=== PATIENT | male | born 1975 | race Caucasian/White ===

== ENCOUNTER 2022-11-27 08:31 | Outpatient (AMB) | payer BC, SELFPAY ==
--- NOTE | 2022-11-27 08:35 | HO.SPINEOV ---
Intake Intake Visit Reasons: Herniated disc Intake Note: Mr. Toth is here today c/o low back pain. MRI done @ [facility]/brought disc. Clerical Stock Inspector Required: No Assessment & Plan Assessment & Plan (1) Lumbar disc herniation with radiculopathy: Code(s): M51.16 - Intervertebral disc disorders with radiculopathy, lumbar region Plan Dear colleague Thank you for referring Collin Toth to the office today with a chief complaint of back pain and right leg pain. HPI: This 47-year-old male is known with low back pain for years. More importantly, he has right leg pain it radiates from his buttock down to the posterior thigh into his calf. This pain was coming on and off for years but in the last year it is more constant and very painful to a point that it interferes with his daily activities. He also notices numbness under his left foot. He tried chiropractic therapy until few months ago, home exercises with stretching and anti-inflammatory drugs without resolution of his symptoms. At night he sleeps in a position to release the pain in his leg. He still works as a safety issue manager cancer. In his 20s he suffered a herniated disc with a similar pain radiating down his right leg, which eventually resolved. PMH: Diabetes the last A1c below 7 Social history: , manager cancer, nonsmoker Medications: Ozempic and Advil Allergies: No drug allergies Physical Exam: Pleasant male. Straight leg raise produces pain in his right hip. There is mild atrophy of the musculature was right leg compared to the left. Motor exam reveals weakness of the right iliopsoas and plantar flexors grade 4/5. Radiological Studies: MRI done at [facility] on 07/06/2022 shows L5-S1 degenerative disc disease with an eccentric disc herniation L5-S1 compressing the right S1 nerve root but also influencing the left S1 nerve. Impression/Plan: This patient is suffering from a right S1 radiculopathy caused by a disc herniation L5-S1. Conservative treatment failed. Therefore, I offered him a lumbar microdiskectomy L5-S1, right-sided approach. We discussed the procedure, complications and expected postoperative course. He wants to proceed and is tentatively scheduled for 01/16/2023. Would like to obtain a CT of the lumbar spine to rule out calcification of the disc herniation as the symptoms are going on for multiple years. Thank you for allowing me to participate in your patients care. total time spent was 50 minutes in counseling ,coordination of plan, personal review of imaging, surgical decision making and subsequent plan Isaiah Grace MD, PhD Spine Fellowship Trained Neurosurgeon Director, [facility] Orders: Orders CT lumbar spine wo IV con Today M51.16 - Intervertebral disc disorders with radiculopathy, lumbar region Coding Level of Care Code New Pt Level 4 (82351) Diagnoses Lumbar disc herniation with radiculopathy M51.16
== END 2022-11-27 09:05 | disposition home or self-care (01) ==
PROVIDERS: Visit Provider Neurological Surgery
DX: M51.16 Intervertebral disc disorders with radiculopathy, lumbar region (principal)
CPT/HCPCS: 99204

== ENCOUNTER → 2022-11-27 08:31 | Outpatient (BNVA) | payer BC, SELFPAY | PROVIDERS: Visit Provider Neurological Surgery ==

== ENCOUNTER 2022-12-12 07:27 | Outpatient (REF) | payer BC, SELFPAY | END 2022-12-12 07:28 | disposition home or self-care (01) | LOC: HO.CT 07:27 | PROVIDERS: Visit Provider Neurological Surgery | DX: M51.16 Intervertebral disc disorders with radiculopathy, lumbar region (principal) | CPT/HCPCS: 72131 ==

== ENCOUNTER 2022-12-30 | Outpatient (REF) | payer BC, SELFPAY ==
--- NOTE | 2022-12-30 | ECG_ITS ---
Test Reason : preop Blood Pressure : / mmHG Vent. Rate : 106 BPM Atrial Rate : 106 BPM P-R Int : 140 ms QRS Dur : 094 ms QT Int : 330 ms P-R-T Axes : 033 -14 017 degrees QTc Int : 438 ms Sinus tachycardia Low voltage QRS Borderline ECG No previous ECGs available Referred By: Coty Nelson Electronically Signed By:AVTAR CALHOUN MD
[2022-12-30 13:10] VITALS: BP 114/82; PULSE 109; RESP 16; O2SAT 97; BMI 31.1
--- NOTE | 2022-12-30 13:38 | HO.ANESPROP2 ---
HPI - Anesthesia Eval Consult details Narrative: Cx'd by surgeon d/t elevated A1C 47yo M for Right L4-5 MLD (MicroLumbar Discectomy), 01/21/23 No recent illness No CP/SOB with work/walking. Limited by back pain. DM. Ozempic. Does not check POC at home - A1C @ 10.[address] [facility]. Dr Grace notified High anesthesia tolerance r/t red hair Anesthesia Pre-Procedure Meds Is the patient on any of the following meds?: Semaglutide (Ozempic) (Rx on Saturdays. Planned last dose 01/11/23) If Yes to any meds - educate patient: Pt education - increased risk of aspiration and Pt education - possibility of cancelled proc at provider's discretion PMFSH Active Problems Active Problems: All Active Problems (Updated 12/30/22 @ 13:27 by Ivy Murguia, SILVER) Lumbar disc herniation with radiculopathy (Acute) Past Medical History Medical History (Updated 12/30/22 @ 13:27 by Ivy Murguia, SILVER) Mild heartburn Numbness Diabetes Family History Family history of problems with anesthesia: No Surgical History Surgical History (Updated 12/30/22 @ 13:03 by Ivy Mugruia, SILVER) H/O wisdom tooth extraction History of Problems with Anesthesia: No Social History Social History (Updated 12/30/22 @ 13:51 by Ivy Murguia, SILVER) Are you a primary social worker palliative care to a significant other at home: No Do you presently have visiting nurse or other home services: No Patient Tobacco Use Status: Former Tobacco user Quit Date: 04/2022 Tobacco use type: Cigarette Years Smoked: 20 Smoked in Last 30 Days: No Use of substances other than those prescribed or required for medical reasons: No Have you been hit, kicked, punched, or otherwise hurt by someone within the past year? If so, by whom?: No Are you DNR?: No Advance Directives: No Advance Directives Information Provided: Yes Advance Directives on File: No Recently lost weight without trying: No Nutrition Risks: No Nutritional Risk Poor oral hygiene: No Meds Allergies Allergy/AdvReac Type Severity Reaction Status Date / Time oxycodone [From Percocet] AdvReac Intermediate Nausea and Verified 12/30/22 13:09 Vomiting Home Medications Medication Instructions Recorded Confirmed Last Taken Type atorvastatin 40 mg tablet 40 mg PO DAILY 12/27/22 12/30/22 Unknown History semaglutide 1 mg/dose (4 mg/3 mL) mg subcut QWEEK 12/27/22 Unknown History subcutaneous pen injector (Ozempic) ibuprofen 200 mg tablet (Advil) 800 mg PO Q8H PRN Pain 12/30/22 12/30/22 Unknown History Exam Exam Date and Time: December 30, 2022 1338 Height,Weight and Vital Signs: Height 5 ft 5.5 in Weight 86.183 kg Last Vital Signs Pulse 109 H 12/30/22 13:10 Resp 16 12/30/22 13:10 BP 114/82 12/30/22 13:10 Pulse Ox 97 12/30/22 13:10 O2 Del Method Room Air 12/30/22 13:10 Pertinent Lab Results Pertinent Lab Results: Lab Results 12/30/22 Range/Units 14:07 WBC 7.4 (4.8-10.8) X10*3/uL RBC 5.60 (4.60-5.80) X10*6/uL Hgb 17.4 (14.0-18.0) g/dl Hct 49.7 (42.0-52.0) % MCV 88.8 (80.0-98.0) fL MCH 31.1 (27.0-33.0) pg MCHC 35.0 (31.0-36.0) g/dl RDW 12.1 (11.0-16.0) % Plt Count 217 (160-400) X10*3/uL MPV 9.9 (9.4-12.4) fL Absolute Nucleated RBC 0.000 (0.0-0.012) X10*3/uL Nucleated RBC % (auto) 0.0 (0.0-0.2) /100WBC Sodium 137 (135-145) mmol/L Potassium 4.2 (3.3-5.1) mmol/L Chloride 101 (96-108) mmol/L Carbon Dioxide 27 (22-29) mmol/L Anion Gap 13 (12-20) BUN 9 (9-16) mg/dL Creatinine 0.85 (0.5-1.4) mg/dL Estim Creat Clear Calc 106.1 Estimated GFR > 60 Random Glucose 265 H (60-115) mg/dL Estimat Average Glucose 246 mg/dL Hemoglobin A1c % 10.2 H (<6.0) % Calcium 10.0 (8.4-10.2) mg/dL Narrative Narrative: EKG 12/2022 Vent. Rate : 106 BPM Atrial Rate : 106 BPM P-R Int : 140 ms QRS Dur : 094 ms QT Int : 330 ms P-R-T Axes : 033 -14 017 degrees QTc Int : 438 ms Sinus tachycardia Low voltage QRS Borderline ECG No previous ECGs available Airway Mallampati Class: II (small mouth) TM Dist: >3cm Neck ROM: Full Loose/Missing/Broken Teeth: Yes (Molars pulled. Right crowned top molar) Heart: RRR Lungs: CTAB Assessment and Plan Assessment Anesthesia Assessment: Anesthesia Plan Discussed and PAT Visit Final Anesthetic Review Family History of Problems with Anesthesia: No History of Problems with Anesthesia: No
[2022-12-30 14:23] LABS: Hematocrit 49.7 % (42.0-52.0); Hemoglobin 17.4 g/dl (14.0-18.0); Mean Corpuscular Hemoglobin 31.1 pg (27.0-33.0); Mean Corpuscular Volume 88.8 fL (80.0-98.0); Mean Platelet Volume 9.9 fL (9.4-12.4); Platelet Count 217 X10*3/uL (160-400); Red Cell Distribution Width 12.1 % (11.0-16.0); White Blood Count 7.4 X10*3/uL (4.8-10.8)
[2022-12-30 14:44] LABS: Estimated Average Glucose 246 mg/dL; Hemoglobin A1c % 10.2 % (<6.0)
[2022-12-30 14:45] LABS: Anion Gap 13 (12-20); Blood Urea Nitrogen 9 mg/dL (9-16); Carbon Dioxide 27 mmol/L (22-29); Chloride 101 mmol/L (96-108); Creatinine Clr Calc Pharmacy 106.1; Estimated Glomerular Filt Rate > 60; Glucose Random 265 mg/dL (60-115); Potassium 4.2 mmol/L (3.3-5.1); Sodium 137 mmol/L (135-145)
== END 2022-12-30 00:01 | disposition home or self-care (01) ==
LOC: HO.PAT
PROVIDERS: Nurse Practitioner; Visit Provider Neurological Surgery
DX: Z01.818 Encounter for other preprocedural examination (principal); M51.16 Intervertebral disc disorders with radiculopathy, lumbar region
CPT/HCPCS: 36415; 80048; 83036; 85027; 93005

== ENCOUNTER 2023-01-16 07:01 | Outpatient (REF) | payer BC, SELFPAY ==
[2023-01-16 16:42] LABS: Estimated Average Glucose 237 mg/dL; Hemoglobin A1c % 9.9 % (<6.0)
== END 2023-01-16 07:02 | disposition home or self-care (01) ==
LOC: HO.LAB 07:01
PROVIDERS: Visit Provider Physician Assistant
DX: Z01.812 Encounter for preprocedural laboratory examination (principal); M51.16 Intervertebral disc disorders with radiculopathy, lumbar region
CPT/HCPCS: 36415; 83036

== ENCOUNTER 2024-04-09 08:37 | Outpatient (AMB) | payer OTHER, SELFPAY ==
--- OUTSIDE RECORDS SUMMARY | 2024-04-09 08:48 | XMS_ITS | Encounter Summary ---
Author Organization [facility] Address [address] [place] [address] Care Team Providers Care Auto Seat Cover Installer Name Role Phone Richard Upton MD Primary Care Provider [phone] Encounter Details Date Type Department Care Team (Late st Contact Info) Description 07/24/2023 Orders Only [facility] Interventional Radiology [address] [place] [address] Jesse Goodman MD [address] [place] [address] Social History Tobacco Use Types Packs/Day Years Used Date Smoking Tobacco: Former Cigarettes Smokeless Tobacco: Never Sex and Gender Information Value Date Recorded Sex Assigned at Male 02/05/2023 8:41 AM EST Legal Sex Male 7:31 AM EDT Gender Identity Male 02/11/2023 3:22 PM EST Sexual Orientation Straight 02/11/2023 3: 22 PM EST documented as of this encounter Plan of Treatment Upcoming Encounters Date Type Department Care Team (Late st Contact Info) Description 05/05/2024 9:00 AM EST Office Visit [facility] Primary Care [address] [place] [phone] Richard Upotn MD [address] [place] [address] 05/18/2024 11:00 AM EDT Follow-Up [facility] Gastroenterology Clinic [address] [place], [place] [phone] Ditcher: Annalee Napoles, [address] [place] [address] 07/09/2024 8:30 AM EDT Office Visit [facility] Diabetes [facility] [address] [place] [address] Ditcher: Prema Baumann, DEPUTY JAILER [address] [place] [address] documented as of this encounter Visit Diagnoses Not on filedocumented in this encounter Care Teams Auto Seat Cover Installer Relationship Specialty Start Date End Date Richard Upton MD [address] [place] [address] PCP - General Family Medicine 06/25/23 documented as of this encounter
--- OUTSIDE RECORDS SUMMARY | 2024-04-09 08:48 | XMS_ITS | Data Portability ---
Author Organization [facility] Address [address] [place] [address] Care Team Providers Care Assistant Auto Center Manager Name Role Phone JONI NULL Referring Provider [phone] Assessment No assessment recorded. Plan of Treatment Reminders Order Date Submit Date Provider Last Modified By Organization Details Last Modified Time Details Appointments None recorded. Lab None recorded. Referral None recorded. Procedures fluorescein eye stain (PROC) 2018 019 [email or web address] Not available 9 08:48:25 Surgeries None recorded. Imaging None recorded. Medication Orders erythromyci n 5 mg/gram (0.5 %) eye ointment 2018 019 [email or web address] Not available 9 16:14:53 Patient TargetsNo targets recorded. Patient InstructionsNo instructions recorded. Reason for Referral None Reported. Procedures Surgical History Date Name Laterality Status Provider Name and Address Organization Details Recorded Time 9 Fluorescein eye exam completed KEAGAN Dyer [facility] 06/07/2018 16:12:53 Imaging Results None recorded. Procedure Notes None recorded. Medical Equipment None Reported. Allergies No known drug allergies Medications Name Sig Start Date Stop Date Status Note LastModified by Organization Details LastModified Time atorvastatin 40 mg tablet active Not Available Not Available Not Available metformin 850 mg tablet active Not Available Not Available Not Available erythromycin 5 mg/gram (0.5 %) eye ointment APPLY 1 CM RIBBON INTO THE LOWER CONJUNCTIVA L SAC(S) IN THE AFFECTED EYE(S) BY OPHTHALMIC ROUTE 3 TIMES PER DAY 2018 active Not Available Not Available Not Avai lable Vitals Date Recorded Heart rate Provider Name an d Address Organization Details Last Updated DateTime 06/07/2018 110 /min Denise Vic [facility] 06/07/2018 10:26:19 Date Recorded Oxygen saturation Oxygen saturation in Arterial blood by Pulse oximetry Provider Name and Address Organization Details Last Updated DateTime 06/07/2018 97 % 97 % Denise Ho [facility] 06/07/2018 10:26:22 Date Recorded Body temperature Provider Name a nd Address Organization Details Last Updated DateTime 06/07/2018 98.7 [degF] Denise Ho [facility] 06/07/2018 10:27:01 Date Recorded Systolic blood pressure Diastolic blood pressure Provider Name and Address Organization Details Last Updated DateTime 06/07/2018 120 mm[Hg] 80 mm[Hg] Denise Ho [facility] 06/07/2018 10:28:02 Social History None recorded. Functional Status None recorded. Mental Status None recorded. Family History Nothing Reported. Medical History No medical history recorded. Past Encounters Encounter ID Performer Location Encounter Start Date Encounter Closed Date Diagnosis/Indication Diagnosis SNOMED-CT Code Diagnosis ICD10 Code Diagnosis Note [id number] Madisyn Diaz MD [facility] [address] [place] [address] 06/07/2018 09:58:18 06/07/2018 10:51:49 Foreign body in eye [id number] T15.90XA 42/M with R-side FB sensation after working under car without glasses, onset during a shower. Suspects material washed from eyebrow into eye. Pt refused vision screen after both [place] and provider requested. No FB visualized . Fluorescei n stain negative. Flushed with 100cc saline under topical anesthetic . Unable to assess improvemen t d/t residual anesthesia . Advise irritation may persist for a few hrs regardless of outcome, to treat with abx as below d/t significan t manipulati on of eye. F/u with [facility] if not improved tomorrow AM to assess retained FB. Pt states understand ing and agrees to do so. Health Concerns Section Related Observation LastModified by Organization Detai ls LastModified Time None Recorded Concern Status LastModified by Organization Details LastModified Time None Recorded Advance Directives Directive None Recorded Payers Encounter Date Sequence Insurance Name Policy Number Policy Grubbs Covered Member ID Grubbs Member ID Guarantor Name 06/07/2018 1 ROSANNA-JOSEPH: ROSANNA (PPO) [id number] Collin Toth [id number] Collin Toth Notes Date Note Type Note Provider Name and Address Organization Details Recorded Time 06/07/2018 text/html 42/M presents fo r foreign body in eye. Reports: - working under car yesterday with no safety glasses, felt an odd sensation but no pain - this AM while showering felt sudden pain in outside edge of R lower eyelid - tried to flush without improvement - wears glasses, no contacts - pt refuses vision screen - PCP Dr. Joni Null ROS: FB sensation, no blurry vision, no discharge, no swelling, no fever Madisyn Diaz MD [address] [place] [address], [id number], [facility] 06/07/2018 18:47:52
--- OUTSIDE RECORDS SUMMARY | 2024-04-09 08:48 | XMS_ITS | Encounter Summary ---
Author Organization [facility] Address [address] [place] [address] Care Team Providers Care Aoc Director Intelligence Officer Name Role Phone Richard Upton MD Primary Care Provider [phone] Encounter Details Date Type Department Care Team (Late st Contact Info) Description 07/15/2023 myChart Message [facility] Financial Clearance Department [address] [place] [address] Mychart, Generic Provider [address] [place], [place] [phone] Medication Authorization Approval Social History Tobacco Use Types Packs/Day Years [...] Description 05/05/2024 9:00 AM EST Office Visit [facility] Primary Care [address] [place] [address] Richard Upton MD [address] [place] [address] 05/18/2024 11:00 AM EDT Follow-Up [facility] Gastroenterology Clinic [address] [place] [address] Panel Monitor: Annalee Napoles, DO [address] [place] [address] 07/09/2024 8:30 AM EDT Office Visit [facility] Diabetes Clinic [address] [place] [address] Panel Monitor: Prema Baumann, FONDANT COOKER [address] [place] [address] documented as of this encounter Visit Diagnoses Not on filedocumented in this encounter Care Teams Aoc Director Intelligence Officer Relationship Specialty Start Date End Date Richard Upton MD [address] [place] [address] PCP - General Family Medicine 06/25/23 documented as of this encounter
--- OUTSIDE RECORDS SUMMARY | 2024-04-09 08:48 | XMS_ITS | Clinical Summary ---
Author Organization [facility] Address [address] [place] [address] Care Team Providers Care Credit Support Counselor Name Role Phone Joni Null MD Primary Care Provider Allergies No known active allergies Social History Tobacco Use Types Packs/Day Years Used Date Smoking Tobacco: Never Assessed Sex and Gender Information Value Date Recorded Sex Assigned at Not on file Legal Sex Male 9:30 PM EDT Gender Identity Not on file Sexual Orientation Not on file Last Filed Vital Signs Vital Sign Reading Time Taken Comments Blood Pressure 155/80 09/13/2009 10:05 AM EDT Pulse 98 09/13/2009 10:05 AM EDT Temperature - - Respiratory Rate - - Oxygen Saturation - - Inhaled Oxygen Concentration - - Weight - - Height - - Body Mass Index - - Plan of Treatment Health Maintenance Due Date Last Done Comments Hepatitis C Screening 1973 DTaP/Tdap/Td (1 - Tdap) 09/01/1991 Hep B (1 of 3 - 19+ 3-dose series) 1992 Pneumococcal 50+ years (1 of 1 - PCV) 09/01/2023 Zoster (Shingrix) (1 of 2) 09/01/2023 COVID-19 Vaccine ( - 2023-2 5 season) 2023 Influenza (#1) 2023 HPV Vaccine Aged Out No longer eligi ble based on patient's age to complete this topic Hep A Aged Out No longer eligi ble based on patient's age to complete this topic Hib Aged Out No longer eligi ble based on patient's age to complete this topic Meningococcal ACWY Aged Out No longer eligible based on patient's age to complete this topic Insurance BCBS FEE FOR SERVICE HMO Care Teams Credit Support Counselor Relationship Specialty Start Date End Date Joni Null MD [address] [place] [address] PCP - General Family Medicine 07/15/22
--- OUTSIDE RECORDS SUMMARY | 2024-04-09 08:48 | XMS_ITS | Encounter Summary ---
Author Organization [facility] Address [address] [place] [id number] Care Team Providers Care City Assessor Name Role Phone Richard Upton MD Primary Care Provider [phone] Encounter Details Date Type Department Care Team (Late st Contact Info) Description 04/05/2024 Refill [facility] Diabetes Clinic [address] [place] [address] Senior Architect: Prema Baumann, TACKING STITCH REMOVER [address] [place], [place] [phone] Type 2 diabetes mellitus with hyperglycemia, with long-term current use of insulin (HCC) (Primary Dx) Social History Tobacco Use Types Packs/Day Years Used Date Smoking Tobacco: Former Cigarettes 0.5 20 2 - 2020 Smokeless Tobacco: Never Alcohol Use Standard Drinks/Week Comments Not Currently 0 (1 standard drink = 0.6 oz pur e alcohol) [facility] Utilities Answer Date Recorded In the past 12 months has [employer], gas, oil, or water [employer] threatened to shut off services in your home? No 07/29/2023 Hunger Vital Sign Answer Date Recorded Within the past 12 months, y ou worried that your food would run out before you got the money to buy more. Never true 07/29/19 24 Within the past 12 months, t he food you bought just didn't last and you didn't have money to get more. Never true 07/29/2023 Transportation Answer Date Recorded In the past 12 months, has l ack of reliable transportation kept you from medical appointments, meetings, work or from getting things needed for daily living? No 07/29/2023 Housing Answer Date Recorded Housing Risk Low 2 07/29/2023 Housing Risk Medium Not on file 07/29/2023 Housing Risk High Not on file 07/29/2023 What is your living situation today? [facility] 07/29/2023 Sex and Gender Information Value Date Recorded Sex Assigned at Male 02/05/2023 8:41 AM EST Legal Sex Male 7:31 AM EDT Gender Identity Male 02/11/2023 3:22 PM EST Sexual Orientation Straight 02/11/2023 3: 22 PM EST documented as of this encounter Miscellaneous Notes * Telephone Encounter - Seda Mcdaniel RN, CDE - 04/05/2024 9:26 AM EST He inadvertently cancelled his Toujeo script and needs a refill MIHIR as he has run out of it. Currently on 60 units but still adjusting (up to 80 units) Please check to see where he wants it sent documented in this encounter Plan of Treatment Upcoming Encounters Date Type Department Care Team (Late st Contact Info) Description 05/05/2024 9:00 AM EST Office Visit [facility] Primary Care [address] [place] [address] Richard Upton MD [address] [place] [address] 05/18/2024 11:00 AM EDT Follow-Up [facility] Gastroenterology Clinic [address] [place] [address] Senior Architect: Annalee Napoles DO [address] [place] [address] 07/09/2024 8:30 AM EDT Office Visit [facility] [address] [place] [address] Senior Architect: Prema Baumann, TACKING STITCH REMOVER [address] [place] [address] documented as of this encounter Visit Diagnoses Diagnosis Type 2 diabetes mellitus with hyperglycemia, with long-term current use of insulin (HCC)- Primary documented in this encounter Care Teams City Assessor Relationship Specialty Start Date End Date Richard Upton MD [address] [place] [address] PCP - General Family Medicine 06/25/23 documented as of this encounter
--- OUTSIDE RECORDS SUMMARY | 2024-04-09 08:49 | XMS_ITS | Encounter Summary ---
Author Organization [facility] Address [address] [place] [address] Care Team Providers Care Forging Operator Name Role Phone Richard Upton MD Primary Care Provider [phone] Reason for Visit * Reason Onset Date Comments Med Refill 03/08/2024 Encounter Details Date Type Department Care Team (Late st Contact Info) Description 03/08/2024 Telephone [facility] Diabetes Clinic [address] [place], [place] [phone] Seamless Tube Roller: Prema Baumann, CATH LABORATORY TECHNICIAN [address] [place] [address] Med Refill Social History Tobacco Use Types Packs/Day Years Used Date Smoking Tobacco: Former Cigarettes 0.5 2 - 2020 Smokeless Tobacco: Never Alcohol Use Standard Drinks/Week Comments Not Currently 0 (1 standard drink = 0.6 oz pur e alcohol) [facility] Utilities Answer Date Recorded In the past 12 months has [employer], gas, oil, or water [employer] threatened to shut off services in your [...] encounter Miscellaneous Notes * Telephone Encounter - Darya Sabillon - 03/16/2024 10:27 AM EST Lantus or Toujeo are covered alternatives * Telephone Encounter - Darya Sabillon - 03/08/2024 10:23 AM EST Tresiba is not being covered by insurance, Please send in an alternative or keep him on the Toujeo documented in this encounter Plan of Treatment Upcoming Encounters Date Type Department Care Team (Late st Contact Info) Description 05/05/2024 9:00 AM EST Office Visit [facility] Primary Care [address] [place] [phone] Richard Upton MD [address] [place] [address] 05/18/2024 11:00 AM EDT Follow-Up [facility] Gastroenterology Clinic [address] [place] [address] Seamless Tube Roller: Annalee Napoles DO [address] [place] [address] 07/09/2024 8:30 AM EDT Office Visit [facility] Diabetes Clinic [address] [place] [address] Seamless Tube Roller: Prema Baumann, CATH LABORATORY TECHNICIAN [address] [place], [place] [phone] documented as of this encounter Visit Diagnoses Not on filedocumented in this encounter Care Teams Forging Operator Relationship Specialty Start Date End Date Richard Upton MD [address] [place] [address] PCP - General Family Medicine 06/25/23 documented as of this encounter
--- OUTSIDE RECORDS SUMMARY | 2024-04-09 08:49 | XMS_ITS | Clinical Summary ---
Author Organization [facility] Address [address] [place] [address] Care Team Providers Care Imaging Specialist Name Role Phone Richard Upton MD Primary Care Provider + [phone] Allergies Active Allergy Reactions Criticality Noted Date Comments Empagliflozin Pancreatitis High 05/27/2023 Metformin Nausea,Vomiting High 02/11/2023 Semaglutide Pancreatitis High 05/27/2023 Medications OneTouch Verio test strips Use to test three times daily with meals and nightly. 100 strip 11 06/18/2023 3:38 PM EDT 06/18/19 24 Active OneTouch Delica Plus Lancet lancet 33 gauge Use to test three times daily with meals and nightly. 100 each 11 06/18/2023 3:38 PM EDT 06/18/19 24 Active OneTouch Verio Flex Start meter Use to test blood sugars as directed. 1 each 06/18/19 24 Active alcohol swabs (Alcohol Pads) pads, medicated Use up to 8 times daily with meter checks 200 each 11 06/18/2023 3:38 PM EDT 06/18/19 24 Active blood-glucose meter (OneTouch Verio Reflect Meter) misc 1 each 3 times a day. 1 each 06/18/2023 3:38 PM EDT 06/18/19 24 Active Freestyle lancets 28 gauge Test daily before all meals/snacks and once before bedtime. 3 each 06/23/19 24 Active atorvastatin (LIPITOR) 40 mg tablet Take 1 tablet (40 mg total) by mouth once a day. 90 tablet 3 06/23/19 24 Active omeprazole (PriLOSEC) 20 mg capsule Take 1 capsule (20 mg total) by mouth once a day. 30 capsule 5 11/17/19 24 025 Active BD Ultra-Fine Nusrat Pen Needle 4 mm x 32 gIndications:T ype 2 diabetes mellitus without complication, with long-term current use of insulin ([facility] ([facility]) Use 5 times daily. 150 each 5 11/24/19 24 Active FreeStyle Shon 3 Plus Sensor device Change sensor every 15 days. 6 each 3 11/25/19 24 Active insulin lispro 100 unit/mL insulin penIndications :Type 2 diabetes mellitus without complication, with long-term current use of insulin ([facility] ([facility]) Inject 10-26 Units under the skin 3 times a day before meals. And 2- 6 units for nighttime snack. 30 mL 3 03/08/20 24 025 Active insulin glargine U-300 conc (Toujeo SoloStar U-300 Insulin) 300 unit/mL (1.5 mL) insulin penIndications :Type 2 diabetes mellitus with hyperglycemia, with long-term current use of insulin ([facility]) Inject 60 Units under the skin in the morning. Increase by 2 units every 3 days until fasting am is <130. MDD80 20 mL 11 04/05/19 25 Active Tresiba FlexTouch U-200 200 unit/mL (3 mL) insulin penIndications :Type 2 diabetes mellitus without complication, with long-term current use of insulin ([facility] ([facility]) Inject 48 Units under the skin daily with dinner. Increase by 2 units every 3-4 days until fasting am glucose <130. MDD 60 15 mL 11 03/08/20 24 025 Discontinued Active Problems Problem Noted Date Diagnosed Date Sinus tachycardia 05/25/2023 Assessment & Plan (06/17/2023 8:15 AM EDT): Vladimir had persistent sinus tachycardia since admission as high as 140's. Cause is not clear. Initally thought to be related to volume status in setting of sepsis like picture and then aggressive fluid resuscitation. EKG was performed revealing sinus tachycardia with no significant change from prior EKG. TTE showed LVEF of 60% with some concentric remodeling. Duplex negative for DVT. Sepsis work-up negative. Cards was curbsided and recommended against Beta blockade. ID was consulted and recommended empiric Zosyn, which was discontinued on 06/14. Plan: -Tele as tolerated by patient Assessment & Plan (06/16/2023 9:48 AM EDT): Vladimir has had persistent sinus tachycardia since admission as high as 140's, now sustaining 120-130's. Cause is not clear. Initally thought to be related to volume status in setting of sepsis like picture and then aggressive fluid resuscitation. Patient received Lasix 40 mg IV on 05/29 which did not resolve tachycardia. Patient continues to be tachycardic. EKG was preformed revealing sinus tachycardia with no significant change from prior EKG. TTE showed LVEF of 60% with some concentric remodeling. Duplex negative for DVT. Plan: -Tele as tolerated by patient - 06/01 will repeat sepsis workup given persistence of tachycardia and continued elevated WBC which had return to normal level previously. Will do Bcx, Ucx, CXR, repeat the CTAP, start maintenance fluids and put back on Vanc/Zosyn - CXR with effusions and so got CT Chest which showed b/l effusions and fluid filled esophagus. - D-dimer on 06/02 was elevated. Will consult with radiology about imaging given recent large contrast load. - 06/03 CTPE negative, curbside cards who felt continue to treat underlying issue and no beta blockade. - ID consulted and recommended Zosyn, which was discontinued on 06/14 - 06/05 6 beat run VT on tele. Assessment & Plan (06/09/2023 8:26 AM EDT): Vladimir has had persistent sinus tachycardia since admission as high as 140's, now sustaining 120-130's. Cause is not clear. Initally thought to be related to volume status in setting of sepsis like picture and then aggressive fluid resuscitation. Patient received Lasix 40 mg IV on 05/29 which did not resolve tachycardia. Patient continues to be tachycardic. EKG was preformed revealing sinus tachycardia with no significant change from prior EKG. TTE and lower extremity duplex pending to rule out structural heart cause or DVT. Plan: -Tele as tolerated by patient -TTE pending - Lower extremity duplex negative - 06/01 will repeat sepsis workup given persistence of tachycardia and continued elevated WBC which had return to normal level previously. Will do Bcx, Ucx, CXR, repeat the CTAP, start maintenance fluids and put back on Vanc/Zosyn - CXR with effusions and so got CT Chest which showed b/l effusions and fluid filled esophagus. - D-dimer on 06/02 was elevated. Will consult with radiology about imaging given recent large contrast load. - 06/03 CTPE negative, curbside cards who felt continue to treat underlying issue and no beta blockade. - ID consulted and recommended continuing Zosyn - 06/05 6 beat run VT on tele. Assessment & Plan (06/06/2023 8:06 AM EDT): Vladimir has had persistent sinus tachycardia since admission as high as 140's, now sustaining 120-130's. Cause is not clear. Initally thought to be related to volume status in setting of sepsis like picture and then aggressive fluid resuscitation. Patient received Lasix 40 mg IV on 05/29 which did not resolve tachycardia. Patient continues to be tachycardic. EKG was preformed revealing sinus tachycardia with no significant change from prior EKG. TTE and lower extremity duplex pending to rule out structural heart cause or DVT. Plan: -Tele as tolerated by patient -TTE pending - Lower extremity duplex negative - 06/01 will repeat sepsis workup given persistence of tachycardia and continued elevated WBC which had return to normal level previously. Will do Bcx, Ucx, CXR, repeat the CTAP, start maintenance fluids and put back on Vanc/Zosyn - CXR with effusions and so got CT Chest which showed b/l effusions and fluid filled esophagus. - D-dimer on 06/02 was elevated. Will consult with radiology about imaging given recent large contrast load. - 06/03 CTPE negative, curbside cards who felt continue to treat underlying issue and no beta blockade. - ID consulted and recommended continuing Zosyn - 06/05 6 beat run VT on tele. Assessment & Plan (06/01/2023 6:26 PM EDT): Vladimir has had persistent sinus tachycardia since admission as high as 140's, now sustaining 120-130's. Cause is not clear. Initally thought to be related to volume status in setting of sepsis like picture and then aggressive fluid resuscitation. Patient received Lasix 40 mg IV on 05/29 which did not resolve tachycardia. Patient continues to be tachycardic. EKG was preformed revealing sinus tachycardia with no significant change from prior EKG. TTE and lower extremity duplex pending to rule out structural heart cause or DVT. Plan: -Tele as tolerated by patient -TTE pending - Lower extremity duplex pending -Consider starting beta jayro if sustained tachycardia Assessment & Plan (05/31/2023 12:01 PM EDT): He has had persistent sinus tachycardia since admission as high as 140's and now in 110's on transfer from ICU. Cause is not clear but likely related to volume status in setting of sepsis like picture and then aggressive fluid resuscitation. He got Lasix 40 mg IV on 05/29 to see if this helps. Plan: -Tele -Assess volume status and consider additional diuresis [ ] TTE, EKG [ ] Lower extremity duplex Increased anion gap metabolic acidosis Abdominal pain 05/25/2023 Necrotizing pancreatitis 05/24/2023 Assessment & Plan (06/17/2023 8:12 AM EDT): 47 y/o old male with PMH diabetes, hyperlipidemia who presented to the emergency room with severe abdominal pain of sudden onset. He called EMS. Notably he has been having intermittent episodes of vomiting for the past few months. His stated that a few days prior he had multiple episodes of violent vomiting. In the ED found to be septic and with acute pancreatitis on CT and with a lipase of >600. He has also had significant nausea and vomiting. Of note He had been on Ozempic for over a year and was recently started on Jardiance within the last month. CTAP showed significant acute pancreatitis with signs of possible early necrotizing pancreatitis. Pancreatitis was likely secondary to Ozempic and Jardiance. He was admitted to the ICU where he was maintained NPO with ADAT to clears at time of transfer. At time of transfer he was off of insulin gtt and OOB to chair with pain well managed with infrequent use of dilaudid WORK MANAGER. With resuscitation he has reversed hemoconcentration, BUN and creatinine improved. GI was following in ICU and has signed off. Autoimmune rule out IgG4, CMV, HSV, HBV, VZV PCRs all negative. Patient received interval CT to assess necrotizing pancreatitis. He was started on TPN in the hospital and was eventually weaned off. Plan: -Advance diet as tolerated to full diet -Continue zofran q8h prn with compazine as needed for breakthrough n/v -Bowel regimen: Miralax PRN, Senna PRN, and Colace standing [ ] Patient will need CTAP in 6 weeks to follow-up on the necrosis/fluid collection. PCP can refer him to GI if CTAP shows walled off necrosis/pseudocyst. Assessment & Plan (06/16/2023 9:44 AM EDT): 47 y/o old male with PMH diabetes, hyperlipidemia who presented to the emergency room with severe abdominal pain of sudden onset. He called EMS. Notably he has been having intermittent episodes of vomiting for the past few months. His stated that a few days prior he had multiple episodes of violent vomiting. The next day he woke up normal. This has happened every few weeks. On the day of presentation it was the first day that it was as severe and sustained. In the ED found to be septic and with acute pancreatitis on CT and with a lipase of >600. He has also had significant nausea and vomiting. Of note He had been on Ozempic for over a year and was recently started on Jardiance within the last month. CTAP showed significant acute pancreatitis with signs of possible early necrotizing pancreatitis. Likley causes include the Ozempic and Jardiance vs idiopathic cause. does note a recent viral illness that went through the household though unlikely to viral given resolution of viral illness. Pancreatitis was likely secondary to Ozempic and Jardiance. He was admitted to the ICU where he was maintained NPO with ADAT to clears at time of transfer. At time of transfer he was off of insulin gtt and OOB to chair with pain well managed with infrequent use of dilaudid WORK MANAGER. With resuscitation he has reversed hemoconcentration, BUN and creatinine improved. Still remains with low phos and calcium. GI was following in ICU and has signed off. Plan: -Advance diet as tolerated, to full diet -Discontinue Dilaudid 0.2 every 4 as needed -Autoimmune rule out IgG4, CMV, HSV, HBV, VZV PCRs, all negative. -Continue zofran q8h prn with compazine as needed for breakthrough n/v -Bowel regimen: Miralax PRN, Senna PRN, and Colace standing -Permanently D/C Ozempic, Jardiance and metformin - 06/02: CTAP showed worsening of necrosis to 1/3 of pancreas as well as increased ascites and anasarca and on CT chest we saw fluid filled esophagus. GI recommended continued fluids, slow advancement of diet, low fat diet, and that as long as no dysphagia does not need NGT for esophageal finding. - 06/03: TPN started given poor progression of po intake and low albumin/protein with 3rd spacing. - 06/07 Pt continued on TPN, abdominal ultrasound ordered to evaluate for ascites/ drainable pocket - 06/07 Pt diuresed for third spacing, AM 40 mg lasix IV - 06/07 Pt diuresed for third spacing, AM 40 mg lasix IV - US for ascites 06/08 Small pockets of ascites in the upper abdomen, right more than left - Repeat CTAP on 06/10 with worsening necrosis, not walled off collection to drain, GI reengaged who recommend one week follow up CT on 06/17. - Surgery consulted and said no surgical intervention [ ] Patient will need CTAP in 6 weeks to follow-up on the necrosis/fluid collection. PCP can refer him to GI if CTAP shows walled off necrosis/pseudocyst. [ ] consider D/C TPN based on tolerating diet advancement Assessment & Plan (06/14/2023 10:27 AM EDT): 47 y/o old male with PMH diabetes, hyperlipidemia who presented to the emergency room with severe abdominal pain of sudden onset. He called EMS. Notably he has been having intermittent episodes of vomiting for the past few months. His stated that a few days prior he had multiple episodes of violent vomiting. The next day he woke up normal. This has happened every few weeks. On the day of presentation it was the first day that it was as severe and sustained. In the ED found to be septic and with acute pancreatitis on CT and with a lipase of >600. He has also had significant nausea and vomiting. Of note He had been on Ozempic for over a year and was recently started on Jardiance within the last month. CTAP showed significant acute pancreatitis with signs of possible early necrotizing pancreatitis. Likley causes include the Ozempic and Jardiance vs idiopathic cause. does note a recent viral illness that went through the household though unlikely to viral given resolution of viral illness. Pancreatitis was likely secondary to Ozempic and Jardiance. He was admitted to the ICU where he was maintained NPO with ADAT to clears at time of transfer. At time of transfer he was off of insulin gtt and OOB to chair with pain well managed with infrequent use of dilaudid WORK MANAGER. With resuscitation he has reversed hemoconcentration, BUN and creatinine improved. Still remains with low phos and calcium. GI was following in ICU and has signed off. Plan: -Advance diet as tolerated, to full diet -Discontinue Dilaudid 0.2 every 4 as needed -Autoimmune rule out IgG4, CMV, HSV, HBV, VZV PCRs, all negative. -Continue zofran q8h prn with compazine as needed for breakthrough n/v -Bowel regimen: Miralax PRN, Senna PRN, and Colace standing -Permanently D/C Ozempic, Jardiance and metformin - 06/02: CTAP showed worsening of necrosis to 1/3 of pancreas as well as increased ascites and anasarca and on CT chest we saw fluid filled esophagus. GI recommended continued fluids, slow advancement of diet, low fat diet, and that as long as no dysphagia does not need NGT for esophageal finding. - 06/03: TPN started given poor progression of po intake and low albumin/protein with 3rd spacing. - 06/07 Pt continued on TPN, abdominal ultrasound ordered to evaluate for ascites/ drainable pocket - 06/07 Pt diuresed for third spacing, AM 40 mg lasix IV - US for ascites 06/08 awaiting read but appears with mild ascites - Repeat CTAP on 06/10 with worsening necrosis, not walled off collection to drain, GI reengaged who recommend one week follow up CT. - Surgery consulted and said no surgical intervention [ ] Patient will need CTAP in 6 weeks to follow-up on the necrosis/fluid collection. PCP can refer him to GI if CTAP shows walled off necrosis/pseudocyst. Assessment & Plan (06/07/2023 7:39 AM EDT): 47 y.o.-old male with PMH diabetes, hyperlipidemia who presented to the emergency room with severe abdominal pain of sudden onset . It was severe. He is unable to describe it due to his discomfort. He called EMS. Notably he has been having intermittent episodes of vomiting for the past few months. His stated that a few days prior he had multiple episodes of violent vomiting. The next day he woke up normal. This has happened every few weeks. On the day of presentation it was the first day that it was as severe and sustained. In the ED found to be septic and with acute pancreatitis on CT and with a lipase of >600. He has also had significant nausea and vomiting. Of note He had been on Ozempic for over a year and was recently started on Jardiance within the last month. CTAP shows significant acute pancreatitis with signs of possible early necrotizing pancreatitis. Likley causes include the Ozempic and Jardiance vs idiopathic cause. does note a recent viral illness that went through the household though unlikely to viral given resolution of viral illness. Pancreatitis is likely secondary to Ozempic and Jardiance. He was admitted to the ICU where he was maintained NPO with ADAT to clears at time of transfer. At time of transfer he is off of insulin gtt and OOB to chair with pain well managed with infrequent use of dilaudid WORK MANAGER. With resuscitation he has reversed hemoconcentration, BUN and creatinine improved. Still remains with low phos and calcium. GI was following in ICU and has signed off. Plan: -Advance diet as tolerated, currently on clears -Dilaudid 0.2 every 4 as needed -Autoimmune rule out IgG4, CMV, HSV, HBV, VZV PCRs, all negative. -Continue zofran q8h prn with compazine as needed for breakthrough n/v -Bowel regimen: Miralax PRN, Senna PRN, and Colace standing -Permanently D/C Ozempic, Jardiance and metformin - 06/01: still with sinus tach and difficulty advancing diet so will repeat CTAP to look for interval change in necrosis etc... - 06/02 CTAP done showing worsening of necrosis to 1/3 of pancrease as well as increased ascites and anasarca and on CT chest we saw fluid filled esophagus. Spoke with GI who recommends continued fluids, slow advancement of diet, low fat diet, and that as long as no dysphagia does not need NGT for esophageal finding. - TPN started on 3/27 given poor progression of po intake and low albumin/protein with 3rd spacing. [ ] Patient will need CTAP in 6 weeks to follow-up on the necrosis/fluid collection. PCP can refer him to GI if CTAP shows walled off necrosis/pseudocyst. Assessment & Plan (06/01/2023 6:44 PM EDT): 47 y.o.-old male with PMH diabetes, hyperlipidemia who presented to the emergency room with severe abdominal pain of sudden onset . It was severe. He is unable to describe it due to his discomfort. He called EMS. Notably he has been having intermittent episodes of vomiting for the past few months. His stated that a few days prior he had multiple episodes of violent vomiting. The next day he woke up normal. This has happened every few weeks. On the day of presentation it was the first day that it was as severe and sustained. In the ED found to be septic and with acute pancreatitis on CT and with a lipase of >600. He has also had significant nausea and vomiting. Of note He had been on Ozempic for over a year and was recently started on Jardiance within the last month. CTAP shows significant acute pancreatitis with signs of possible early necrotizing pancreatitis. Likley causes include the Ozempic and Jardiance vs idiopathic cause. does note a recent viral illness that went through the household though unlikely to viral given resolution of viral illness. Pancreatitis is likely secondary to Ozempic and Jardiance. He was admitted to the ICU where he was maintained NPO with ADAT to clears at time of transfer. At time of transfer he is off of insulin gtt and OOB to chair with pain well managed with infrequent use of dilaudid WORK MANAGER. With resuscitation he has reversed hemoconcentration, BUN and creatinine improved. Still remains with low phos and calcium. GI was following in ICU and has signed off. Plan: -Advance diet as tolerated, failed full liquid advancement on 09/29 -Dilaudid 0.2 q2 PRN and tylenol q6 PRN for pain control -Autoimmune rule out IgG4, CMV, HSV, HBV, VZV PCRs, all negative. -Continue zofran q8h prn with compazine as needed for breakthrough n/v -Bowel regimen: Miralax PRN, Senna PRN, and Colace standing -Permanently D/C Ozempic, Jardiance and metformin [ ] Am labs: lipase, amylase, CMP and ALT [ ] Patient will need CTAP in 6 weeks to follow-up on the necrosis/fluid collection. PCP can refer him to GI if CTAP shows walled off necrosis/pseudocyst. Assessment & Plan (05/31/2023 11:57 AM EDT): 47 y.o.-old male with PMH diabetes, hyperlipidemia who presented to the emergency room with severe abdominal pain of sudden onset . It was severe. He is unable to describe it due to his discomfort. He called EMS. Notably he has been having intermittent episodes of vomiting for the past few months. His stated that a few days prior he had multiple episodes of violent vomiting. The next day he woke up normal. This has happened every few weeks. On the day of presentation it was the first day that it was as severe and sustained. In the ED found to be septic and with acute pancreatitis on CT and with a lipase of >600. He has also had significant nausea and vomiting. Of note He had been on Ozempic for over a year and was recently started on Jardiance within the last month. CTAP shows significant acute pancreatitis with signs of possible early necrotizing pancreatitis. Likley causes include the Ozempic vs idiopathic cause. does note a recent viral illness that went through the household though unlikely to viral given resolution of viral illness. He was admitted to the ICU where he was maintained NPO with ADAT to clears at time of transfer. At time of transfer he is off of insulin gtt and OOB to chair with pain well managed with infrequent use of dilaudid WORK MANAGER. With resuscitation he has reversed hemoconcentration, BUN and creatinine improved. Still remains with low phos and calcium. GI was following in ICU and has signed off. Plan: -Advance diet as tolerated, trial full liquids today -Dilaudid 0.2mg Q2 PRN [ ] f/u IgG subclasses for autoimmune pancreatitis workup pending -Daily BMP, Mag, Phos -Continue zofran q8h prn with compazine as needed for breakthrough n/v -Bowel regimen: Miralax PRN, Senna PRN, and Colace standing [ ] Patient will need CTAP in 6 weeks to follow-up on the necrosis/fluid collection. PCP can refer him to GI if CTAP shows walled off necrosis/pseudocyst. Pancreatitis, unspecified pancreatitis type 05/08 Cigarette nicotine dependence without complicati on 12/29/2017 Low back pain 12/29/2017 Assessment & Plan (05/30/2023 10:37 AM EDT): Myalgia 10/28/2016 Back muscle spasm 04/04/2015 Adjustment disorder with anxiety 02/03/2015 Stress due to illness of family member 5 Arthralgia of multiple joints 04/07/2012 Assessment & Plan (01/15/2021 11:53 AM EST): Labs inconsistent with etiology of inflammatory processes for his arthralgias. I suspect it may continue to improve as pt continues to improve overall health and advised patient to continue working on his overall health and to reach out with any new or worsening symptoms. Will continue to monitor. Type 2 diabetes mellitus, wi th long-term current use of insulin 01/31/2012 Assessment & Plan (06/17/2023 8:17 AM EDT): Patient with established diagnosis of Type 2 Diabetes. Their last A1c was 9.7 in May 2022. Their home medication regimen includes: Ozempic and Jardiance. Home meds stopped in setting of acute pancreatitis. He will never be on these medications again as they likely contributed. He has been followed by diabetes team while in the ICU and was on insulin drip and then transitioned to basal bolus insulin. Plan: -Ozempic, Jardiance and metformin permanently stopped. -ADAT to Diabetic diet -Lantus 30U AM, 15U nightly -Lispro 14U with meals -MDISS -Will continue to follow recommendations of diabetes team -Outpatient Diabetic Nutritional Education Assessment & Plan (06/16/2023 9:47 AM EDT): Patient with established diagnosis of Type 2 Diabetes. Their last A1c was 9.7 in May 2022. Their home medication regimen includes: Ozempic and Jardiance. Home meds stopped in setting of acute pancreatitis. He will never be on these medications again as they likely contributed. He has been followed by diabetes team while in the ICU and was on insulin drip and then transitioned to basal bolus insulin. Patient receiving sliding scale lispro with meals and nightly, in addition to AM 30 units of long acting insulin daily. Plan: -Ozempic, Jardiance and metformin permanently stopped. -ADAT to Diabetic diet, currently on liquids -Daily AM Long acting insulin 40 units with breakfast -Will continue to follow recommendations of diabetes team. -Outpatient Diabetic Nutritional Education Assessment & Plan (06/14/2023 10:13 AM EDT): Patient with established diagnosis of Type 2 Diabetes. Their last A1c was 9.7 in May 2022. Their home medication regimen includes: Ozempic and Jardiance. Home meds stopped in setting of acute pancreatitis. He will never be on these medications again as they likely contributed. He has been followed by diabetes team while in the ICU and was on insulin drip and then transitioned to basal bolus insulin. Patient receiving sliding scale lispro with meals and nightly, in addition to AM 30 units of long acting insulin daily. Plan: -Ozempic, Jardiance and metformin permanently stopped. -ADAT to Diabetic diet, currently on liquids -Daily AM Long acting insulin 40 units with breakfast -Will continue to follow recommendations of diabetes team. -Outpatient Diabetic Nutritional Education Assessment & Plan (06/02/2023 9:17 AM EDT): Patient with established diagnosis of Type 2 Diabetes. Their last A1c was 9.7 in May 2022. Their home medication regimen includes: Ozempic and Jardiance. Home meds stopped in setting of acute pancreatitis. He will never be on these medications again as they likely contributed. He has been followed by diabetes team while in the ICU and was on insulin drip and then transitioned to basal bolus insulin. Patient receiving sliding scale lispro with meals and nightly, in addition to AM 30 units of long acting insulin daily. Plan: -Ozempic, Jardiance and metformin permanently stopped. -ADAT to Diabetic diet, currently on liquids -Daily AM Long acting insulin 30 units with breakfast -Will continue to follow recommendations of diabetes team. -Outpatient Diabetic Nutritional Education Assessment & Plan (06/01/2023 6:22 PM EDT): Patient with established diagnosis of Type 2 Diabetes. Their last A1c was 9.7 in May 2022. Their home medication regimen includes: Ozempic and Jardiance. Home meds stopped in setting of acute pancreatitis. He will never be on these medications again as they likely contributed. He has been followed by diabetes team while in the ICU and was on insulin drip and then transitioned to basal bolus insulin. Patient receiving sliding scale lispro with meals and nightly, in addition to AM 30 units of long acting insulin daily. Plan: -Ozempic, Jardiance and metformin permanently stopped. -ADAT to Diabetic diet, currently on liquids -Daily AM Long acting insulin 30 units with breakfast -Will continue to follow recommendations of diabetes team. -Outpatient Diabetic Nutritional Education Assessment & Plan (05/31/2023 11:58 AM EDT): Patient with established diagnosis of Type 2 Diabetes. Their last A1c was 9.7 in May 2022. Their home medication regimen includes: Ozempic and Jardiance. Home meds stopped in setting of acute pancreatitis. He will never be on these medications again as they likely contributed. He has been followed by diabetes team while in the ICU and was on insulin drip and then transitioned to basal bolus insulin. Plan: - Ozempic and Jardiance permanently stopped. -ADAT to Diabetic diet, currently on liquids -Basal bolus insulin per diabetes team recommendations with POCT glucose testing -Will continue to follow recommendations of diabetes team. Assessment & Plan (01/15/2021 12:10 PM EST): Patient reports working hard independently to lose weight and monitor his sugar intake. Advised patient to continue to limit sugars. Prescribed once weekly injection of Semaglutide 2mg/1.5mL. Will follow up with patient for labs in a few months. Insomnia with sleep apnea 07/14/2009 Hypercholesterolemia 07/14/2009 Assessment & Plan (06/17/2023 8:12 AM EDT): Patient with history of hyperlipidemia. Their last lipid panel was on 06/01/2022 and showed mild hypertriglyceridemia. They take atorvastatin 40 mg daily at home. Plan: - Hold atorvastatin in the setting of acute pancreatitis and will consider restarting when tolerating po - Last lipid panel on 05/24 in ICU showed normal triglycerides Assessment & Plan (06/16/2023 9:45 AM EDT): Patient with history of hyperlipidemia. Their last lipid panel was on 06/01/2022 and showed mild hypertriglyceridemia. They take atorvastatin 40 mg daily at home. Plan: - Hold atorvastatin in the setting of acute pancreatitis and will consider restarting when tolerating po - Last lipid panel on 05/24 in ICU showed normal triglycerides Assessment & Plan (06/08/2023 9:17 AM EDT): Patient with history of hyperlipidemia. Their last lipid panel was on 06/01/2022 and showed mild hypertriglyceridemia. They take atorvastatin 40 mg daily at home. Plan: - Hold atorvastatin in the setting of acute pancreatitis and will consider restarting when tolerating po - Last lipid panel on 05/24 in ICU showed normal triglycerides Assessment & Plan (06/02/2023 9:17 AM EDT): Patient with history of hyperlipidemia. Their last lipid panel was on 06/01/2022 and showed mild hypertriglyceridemia. They take atorvastatin 40 mg daily at home. Plan: - Hold atorvastatin in the setting of acute pancreatitis and will consider restarting when tolerating po - Last lipid panel on 05/24 in ICU showed normal triglycerides Assessment & Plan (05/30/2023 10:32 AM EDT): Patient with history of hyperlipidemia. Their last lipid panel was on 06/01/2022 and showed mild hypertriglyceridemia. They take atorvastatin 40 mg daily at home. Plan: - Hold atorvastatin in the setting of acute pancreatitis and will consider restarting when tolerating po - Last lipid panel on 05/24 in ICU showed normal triglycerides Resolved Problems Problem Noted Date Diagnosed Date Resolved Date Diarrhea 06/11/2023 06/18/2023 Assessment & Plan (06/17/2023 8:12 AM EDT): Multiple days watery diarrhea in setting acute pancreatitis on Zosyn for >1 week and with rising white count and increased abdominal pain. Please see pancreatitis for more information. Assessment & Plan (06/16/2023 9:45 AM EDT): Multiple days watery diarrhea in setting acute pancreatitis on Zosyn for >1 week and with rising white count and increased abdominal pain. Please see pancreatitis for more information. Assessment & Plan (06/11/2023 8:42 AM EDT): Multiple days watery diarrhea in setting acute pancreatitis on Zosyn for >1 week and with rising white count and increased abdominal pain. Will plan to repeat CTAP and do cdiff and will speak with GI. Pleural effusion, bilateral 06/05/2023 06/18/2023 Assessment & Plan (06/17/2023 8:13 AM EDT): There were bilateral effusions on CT chest. Currently with good respiratory status. We diuresed with IV lasix and started TPN to help with oncotic pressure, which was eventually weaned off. Assessment & Plan (06/16/2023 9:46 AM EDT): There are bilateral effusions on CT chest. Currently with good respiratory status. We are diuresing and have started TPN to help with oncotic pressure. Patient diuresing with IV Lasix. Assessment & Plan (06/09/2023 8:27 AM EDT): There are bilateral effusions on CT chest. Currently with good respiratory status. We are diuresing and have started TPN to help with oncotic pressure. Patient diuresing with IV Lasix. Assessment & Plan (06/07/2023 7:40 AM EDT): There are bilateral effusions on CT chest. Currently with good respiratory status. We are diuresing and have started TPN to help with oncotic pressure. Patient diuresing with IV Lasix. Follow-up CXR pending. Impaired mobility 06/04/2023 06/18/2023 Assessment & Plan (06/17/2023 8:12 AM EDT): PT saw patient and worked with him throughout hospitalization with ultimate recommendation to d/c home when medically cleared. Assessment & Plan (06/16/2023 9:46 AM EDT): PT saw patient and worked with him throughout hospitalization with ultimate recommendation to d/c home when medically cleared. Assessment & Plan (06/08/2023 9:16 AM EDT): PT consult placed. Rec d/c to home with assist and PT pending continued progress. Pt is has not cleared for d/c home at this time. PT will follow Assessment & Plan (06/04/2023 10:59 AM EDT): PT consult placed. Heartburn 05/31/2023 06/18/2023 Assessment & Plan (06/17/2023 8:12 AM EDT): Patient reporting symptoms of heartburn refractory to Maalox, Tums, and Pepcid while in the hospital. He reported dark stool, possibly concerning for ulcer given concurrent symptoms. H Pylori negative. Plan: -Maalox, Tums -Pantoprazole 40 mg twice daily - Pepcid BID -Low acidity diet Assessment & Plan (06/16/2023 9:45 AM EDT): Patient reporting symptoms of heartburn refractory to Maalox, Tums, and Pepcid while in the hospital. He reported dark stool, possibly concerning for ulcer given concurrent symptoms. H Pylori negative. Plan: -Maalox, Tums -Pantoprazole 40 mg twice daily - Pepcid BID -Low acidity diet Assessment & Plan (06/08/2023 9:17 AM EDT): Patient reporting symptoms of heartburn refractory to Maalox, Tums, and Pepcid while in the hospital. He reported dark stool, possibly concerning for ulcer given concurrent symptoms. Plan: -Maalox, Tums -Pantoprazole 40 mg twice daily - Pepcid BID -H. pylori antigen pending -Low acidity diet Assessment & Plan (06/05/2023 9:03 AM EDT): Patient reporting symptoms of heartburn refractory to Maalox, Tums, and Pepcid while in the hospital. He reported dark stool, possibly concerning for ulcer given concurrent symptoms. Plan: -Maalox, Tums -Pantoprazole 40 mg twice daily - Pepcid BID -H. pylori antigen pending -Low acidity diet Assessment & Plan (06/01/2023 6:28 PM EDT): Patient reporting symptoms of heartburn refractory to Maalox, Tums, and Pepcid while in the hospital. He reported dark stool, possibly concerning for ulcer given concurrent symptoms. Plan: -Maalox, Tums -Pantoprazole 40 mg twice daily -H. pylori antigen pending -Low acidity diet Assessment & Plan (05/31/2023 12:00 PM EDT): Patient reporting symptoms of heartburn refractory to Maalox, Tums, and Pepcid while in the hospital. He reported dark stool, possibly concerning for ulcer given concurrent symptoms. Plan: -Maalox, Tums -Pantoprazole 40 mg twice daily [ ] H. pylori antigen Acute respiratory failure with hypoxia 05/30/2023 06/18/2023 Assessment & Plan (06/17/2023 8:12 AM EDT): Had ground glass opacities pre-resuscitation, was high risk for non cardiogenic edema and ultimately cardiogenic edema due to fluid resucitation. POCUS AM 05/24 unimpressive. No effusions. In ICU they titrate FI02 to saturation of 88-92% and weaned to room air. Plan: - Tele and continuous pulse ox - IS and pulmonary toilet, aggressive - If he desats we will titrate FI02 to saturation of 88-92% Assessment & Plan (06/16/2023 9:44 AM EDT): Had ground glass opacities pre-resuscitation, was high risk for non cardiogenic edema and ultimately cardiogenic edema due to fluid resucitation. POCUS AM 05/24 unimpressive. No effusions. In ICU they titrate FI02 to saturation of 88-92% and weaned to room air. Plan: - Tele and continuous pulse ox - IS and pulmonary toilet, aggressive - If he desats we will titrate FI02 to saturation of 88-92% Assessment & Plan (06/08/2023 9:17 AM EDT): Had ground glass opacities pre-resuscitation, was high risk for non cardiogenic edema and ultimately cardiogenic edema due to fluid resucitation. POCUS AM 05/24 unimpressive. No effusions. In ICU they titrate FI02 to saturation of 88-92% and weaned to room air. Plan: - Tele and continuous pulse ox - IS and pulmonary toilet, aggressive - If he desats we will titrate FI02 to saturation of 88-92% Assessment & Plan (06/02/2023 9:17 AM EDT): Had ground glass opacities pre-resuscitation, was high risk for non cardiogenic edema and ultimately cardiogenic edema due to fluid resucitation. POCUS AM 05/24 unimpressive. No effusions. In ICU they titrate FI02 to saturation of 88-92% and weaned to room air. Plan: - Tele and continuous pulse ox - IS and pulmonary toilet, aggressive - If he desats we will titrate FI02 to saturation of 88-92% Assessment & Plan (05/31/2023 12:01 PM EDT): Had ground glass opacities pre-resuscitation, was high risk for non cardiogenic edema and ultimately cardiogenic edema due to fluid resucitation. POCUS AM 05/24 unimpressive. No effusions. In ICU they titrate FI02 to saturation of 88-92% and weaned to room air. Plan: - Tele and continuous pulse ox - IS and pulmonary toilet, aggressive - If he desats we will titrate FI02 to saturation of 88-92% Metabolic acidosis 05/25/2023 Assessment & Plan (05/30/2023 1:35 PM EDT): Resolved. VENICE (acute kidney injury) 05/25/2023 Leukocytosis 05/25/2023 05/30/2023 Sepsis 05/24/2023 06/01/2023 Assessment & Plan (05/30/2023 10:57 AM EDT): Presented to ED with abdominal pain and found to have acute pancreatitis. Slightly tachycardic, with lactate initially of 4.8 and hypothermic with WBC count of 23.4. In the ED they got 30cc/kg fluid bolus and were given a dose of Vancomycin and Zosyn. Was maintained on fluids and abx in the ICU. Lactate cleared. No signs of specific infection. Bcx aNGTD. At time of transfer still with sinus tachy but normotensive. POCUS cardiac ultrasound in ICU with vigorous LV function, RV size and function appear normal. ACS ruled out as well. Plan: - Continue with fluids - tele and continuous pulse ox Lactic acidosis 05/24/2023 06/18/2023 Assessment & Plan (06/17/2023 8:12 AM EDT): Lactate of 4.8 on presentation to ED. Repeat after fluid was 4/7. Has cleared while in ICU on fluids. Last was 1.2. Assessment & Plan (06/16/2023 9:46 AM EDT): Lactate of 4.8 on presentation to ED. Repeat after fluid was 4/7. Has cleared while in ICU on fluids. Last was 1.2. Assessment & Plan (06/08/2023 9:16 AM EDT): Lactate of 4.8 on presentation to ED. Repeat after fluid was 4/7. Has cleared while in ICU on fluids. Last was 1.2. Assessment & Plan (06/02/2023 9:17 AM EDT): Lactate of 4.8 on presentation to ED. Repeat after fluid was 4/7. Has cleared while in ICU on fluids. Last was 1.2. Assessment & Plan (05/30/2023 10:44 AM EDT): Lactate of 4.8 on presentation to ED. Repeat after fluid was 4/7. Has cleared while in ICU on fluids. Last was 1.2. Urinary retention 05/24/2023 06/18/2023 Assessment & Plan (06/17/2023 8:17 AM EDT): Had 850 cc PVRV in the ED and brown was placed. No known history of BPH or prior retention. Brown maintained in ICU and d/c'd prior to transfer. Will do PRN bladder scans for retention. Assessment & Plan (06/16/2023 9:48 AM EDT): Had 850 cc PVRV in the ED and brown was placed. No known history of BPH or prior retention. Brown maintained in ICU and d/c'd prior to transfer. Will do PRN bladder scans for retention. Assessment & Plan (06/08/2023 9:14 AM EDT): Had 850 cc PVRV in the ED and brown was placed. No known history of BPH or prior retention. Brown maintained in ICU and d/c'd prior to transfer. Will do PRN bladder scans for retention. Assessment & Plan (06/02/2023 9:17 AM EDT): Had 850 cc PVRV in the ED and brown was placed. No known history of BPH or prior retention. Brown maintained in ICU and d/c'd prior to transfer. Will do PRN bladder scans for retention. Assessment & Plan (05/30/2023 10:43 AM EDT): Had 850 cc PVRV in the ED and brown was placed. No known history of BPH or prior retention. Brown maintained in ICU and d/c'd prior to transfer. Will do PRN bladder scans for retention. Finger pain, right 12/29/2017 9 Healthcare maintenance 12/29/201708/22 Folliculitis 12/29/2017 02/05/2019 Obesity 07/14/2009 01/08/2021 Encounters Date Type Department Care Team Description 04/08/2024 myChart Message [facility] [address] [place] [address] Maxwell, Generic Provider Diabetes Educaiton - Shon 04/05/2024 8:30 AM EST Evaluation [facility] [address] [place] [address] Seda Mcdaniel RN, CDE Type 2 diabetes mellitus without complication, with long-term current use of insulin ([facility]/HCC) (HCC) 04/05/2024 Refill [facility] [address] [place] [id number] Spinning Supervisor: Prema Baumann NP Type 2 diabetes mellitus with hyperglycemia, with long-term current use of insulin ([facility]) (Primary Dx) 03/22/2024 Telephone [facility] [address] [place] [address] Spinning Supervisor: Prema Baumann NP 03/18/2024 Motorpaneerhart Message [facility] [address] [place] [id number] Spinning Supervisor: Prema Baumann NP insulin 03/08/2024 8:00 AM EST Office Visit [facility] [address] [place] [id number] Spinning Supervisor: Prema Baumann NP Type 2 diabetes mellitus without complication, with long-term current use of insulin (CMS/HCC) ([facility]) (Primary Dx); Hyperlipidemia, unspecified hyperlipidemia type 03/08/2024 Telephone [facility] [address] [place] [phone] Spinning Supervisor: Prema Baumann NP Med Refill 02/26/2024 Telephone [facility] [address] [place] [id number] Spinning Supervisor: Annalee Napoles DO 02/25/2024 Patient Outreach [facility] [address] [address] Darlene Fuentes from Last 3 Months Family History Medical History Relation Name Comments Diabetes Father Breast cancer Mother x2 Multiple sclerosis Mother Other Other Family history of Living Arrangements: Father: DM2 (dx 60s) Mother: Breast cancer x 2, MS, cervical cancer (lives in [place]) 1 Sister: in [place], [employer] No other CAD, cancer Diabetes Sister Relation Name Status Comments Father Alive Mother Other Sister Social History Tobacco Use Types Packs/Day Years Used Date Smoking Tobacco: Former Cigarettes 0.5 20 2 001 - 2020 Smokeless Tobacco: Never Tobacco Cessation:Counseling Given: Not Answered Alcohol Use Standard Drinks/Week Comments Not Currently 0 (1 standard drink = 0.6 oz pur e alcohol) [facility] Utilities Answer Date Recorded In the past 12 months has th e electric, gas, oil, or water company threatened to shut off services in your [...] Orientation Straight 02/11/2023 3: 22 PM EST Last Filed Vital Signs Vital Sign Reading Time Taken Comments Blood Pressure 136/71 03/08/2024 8:05 AM EST Pulse 57 03/08/2024 8:05 AM EST Temperature 36.1 ??C (97 ??F) 11/17/2023 10:06 AM EDT Respiratory Rate 18 10/07/2023 9:14 AM EDT Oxygen Saturation 96% 10/07/2023 9:14 AM EDT Inhaled Oxygen Concentration - - Weight 89.4 kg (197 lb) 03/08/2024 8:05 AM EST Height 165.1 cm (5' 5 ) 10/30/2023 3:55 PM EDT Body Mass Index 32.78 10/30/2023 3:55 PM EDT Plan of Treatment Upcoming Encounters Date Type Department Care Team (Late st Contact Info) Description 05/05/2024 9:00 AM EST Office Visit [facility] [address] [place] [phone] Richard Upton MD [address] [place] [address] 05/18/2024 11:00 AM EDT Follow-Up [facility] [address] [place] [address] Spinning Supervisor: Annalee Napoles DO [address] [place] [address] 07/09/2024 8:30 AM EDT Office Visit [facility] [address] [place] [address] Spinning Supervisor: Prema Baumann, [employer] [address] [place] [address] Health Maintenance Due Date Last Done Comments Cologuard 1973 Colon Cancer Screening 1973 Colonoscopy 1973 FOBT / Fit Test 1973 HIV Screening 1973 Hepatitis C Screening 1973 Sigmoidoscopy 1973 Pneumococcal Vaccine: Pediat boaz (0-5 Years) and At-Risk Patients (6-64 Years) (1 of 2 - PCV) 09/01/1979 Ophthalmology Exam 09/01/1983 Hepatitis B Vaccines (1 of 3 - 19+ 3-dose series) 1992 DTaP,Tdap,and Td Vaccines (1 - Tdap) 09/01/1995 Urine Microalbumin 06/09/2022 06/09/2021, 1 04/07/2018, 12/29/2017, Additional history exists Zoster Vaccines (1 of 2) 09/01/2023 COVID-19 Vaccine (3 - 2023-2 5 season) 2023 08/22/2020, 07/28/2020 Influenza Vaccine (#1) 2023 Alcohol/Substance Use Screening 03/10/2024 Depression Screening and Follow-Up 03/10/2024 Social Drivers of Health Kathy ual Screening 03/10/2024 07/29/2023 Basic Metabolic Panel 08/06/2024 08/07/2023 , 07/24/2023, 06/23/2023, Additional history exists Hemoglobin A1C 10/07/2024 04/09/2024, 02/09, 02/13/2024, Additional history exists RSV Vaccine (60+ years old a nd patients) (1 - 1-dose 75+ series) 2048 Abdominal Aortic Aneurysm (A AA) Screening Completed 08/07/2023, 07/25/2023, 06/25/2023, Additional history exists Procedures * Due to [place] Cloud[employer] law, this organization might not be sharing negative HIV tests. Procedure Name Priority Date/Time Associated Diagnosis Comments POCT GLYCOSYLATED HEMOGLOBIN (HGB A1C) Routine 03/08/2024 8:01 AM EST POCT GLUCOSE Routine 03/08/2024 8:[address] ABDOMEN PELVIS W CONTRAST STAT 08/07/2023 10:16 PM EDT COMPREHENSIVE METABOLIC PANEL STAT 08/07/2023 6:28 PM EDT MICROALBUMIN, RANDOM URINE WITH CREATININE Routine 06/09/2021 9:09 AM EDT Type 2 diabetes mellitus without complication, without long-term current use of insulin ([facility]/HCC) (HCC) from Last 3 Months or Most Recently Relevant to Health Maintenance Results * Due to [place] CloudSafe law, this organization might not be sharing negative HIV tests. * (ABNORMAL) POCT Glycosylated Hemoglobin (HGB A1C), interfaced (03/08/2024 8:01 AM EST) Hemoglobin A1C, POCT 8.3(H) <=5.6 % 03/08/2024 8:10 AM EST [facility] Comment: A1C Recommendation for Non- Adults with Diabetes: <7.0% ADA 2011 Standards of Medical Care in Diabetes Blood 03/08/2024 8:01 AM EST 03/08/2024 8:10 AM EST us Prema Heller [employer] LAB POCT ORDERABLES - DEVICE F inal Result Performing Organization Address [facility] Co de Phone Number [facility] [address] [place] [address], [place] * (ABNORMAL) POCT Glucose, interfaced (03/08/2024 8:00 AM EST) Glucose, POCT 181(H) 70 - 99 mg/dL 03/08/2024 8:12 AM EST [facility] Comment: The bead forming machine set up operator has not determined the efficacy of this test in Critically ill patients. ??[facility] defines Critically ill patients for the purpose of blood glucose monitoring (BGM) by glucometer, as patients meeting one or more of the following criteria: Hypotension- non-ICU patients (systolic blood pressure Less than 90 mmHg) due to shock Hypotension -ICU patients ??(Mean Arterial Pressure (MAP) <60 mmHg or systolic blood pressure < 90 mmHg due to shock Patients receiving Vasopressors (phenylephrine, vasopressin or norepinephrine) Anasarca In all locations, BGM test results should not be relied upon in the above situations, unless these results confirmed with lab-based glucose values. Blood 03/08/2024 8:00 AM EST 03/08/2024 8:12 AM EST us Prema Heller [employer] LAB POCT ORDERABLES - DEVICE F inal Result Performing Organization Address 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 Accurate assessment of size of these collections is difficult, however overall appear stable since 07/25/2023 and decreased and more mature since 06/25/2023 CT. If this radiology report contains a blank impression section, it is an incomplete radiology report. ??Please contact the interpreting radiologist or applicable radiology division as soon as possible to obtain the completed interpretation. ? Workstation ID: [id number] Up-to-date CT equipment and radiation dose reduction techniques were employed. CTDIvol: 14.4 mGy. DLP: 721 mGy-cm. Narrative 08/07/2023 11:21 PM EDT COMPARISON:Multiple prior CT abdomen pelvis most recent 07/25/2023, 06/25/2023 LOWER THORAX: Minimal basilar subsegmental atelectasis. ??No pleural effusion. HEPATOBILIARY:No focal hepatic lesions identified within the limitations of phase of imaging. No intrahepatic or extrahepatic biliary dilatation. GALLBLADDER: No gallbladder distention. SPLEEN: No splenomegaly. PANCREAS: Heterogeneous pancreatic parenchyma compatible with ongoing necrotizing pancreatitis. Again demonstrated evolving collections of walled off necrosis extending from the left subhepatic region caudally along the retroperitoneum into the left upper pelvis. Accurate assessment of size is difficult. In comparison to 07/25/2023 overall no significant change however they are decreased in size and more mature in comparison to 06/25/2023 CT. ADRENAL GLANDS: No nodules. KIDNEYS AND URETERS: Symmetric renal size and enhancement. ??No nephrolithiasis or hydronephrosis. ??Ureters are decompressed. GI TRACT: Stomach is not distended. ??The small bowel and colon are not dilated. ??Mild to moderate colonic fecal retention. Appendix is unremarkable. PERITONEUM AND RETROPERITONEUM:No free air. Retroperitoneal collection/walled off necrosis as described above. LYMPH NODES: A few small subcentimeter mesenteric and retroperitoneal lymph nodes, nonspecific. PELVIC ORGANS AND BLADDER: The urinary bladder is mildly distended. VASCULATURE: The abdominal aorta is nonaneurysmal. The ??inferior vena cava is unremarkable. Patent portal and splenic vein. Unchanged attenuation of the superior aspect of SMV. BONES AND SOFT TISSUES: No acute osseous abnormality. ??Degenerative changes in the spine. Resulting Agency Comment [id number] Procedure Note Lily Ibarra MD - 08/07/2023 COMPARISON:Multiple prior CT abdomen pelvis most recent 07/25/2023,06/25/2023 LOWER THORAX: Minimal basilar subsegmental atelectasis. No pleuraleffusion. HEPATOBILIARY:No focal hepatic lesions identified within the limitationsof phase of imaging. No intrahepatic or extrahepatic biliary dilatation. GALLBLADDER: No gallbladder distention. SPLEEN: No splenomegaly. PANCREAS: Heterogeneous pancreatic parenchyma compatible with ongoingnecrotizing pancreatitis. Again demonstrated evolving collections ofwalled off necrosis extending from the left subhepatic region caudallyalong the retroperitoneum into the left upper pelvis. Accurate assessmentof size is difficult. In comparison to 07/25/2023 overall no significantchange however they are decreased in size and more mature in comparison to06/25/2023 CT. ADRENAL GLANDS: No nodules. KIDNEYS AND URETERS: Symmetric renal size and enhancement. Nonephrolithiasis or hydronephrosis. Ureters are decompressed. GI TRACT: Stomach is not distended. The small bowel and colon are notdilated. Mild to moderate colonic fecal retention. Appendix is unremarkable. PERITONEUM AND RETROPERITONEUM:No free air. Retroperitonealcollection/walled off necrosis as described above. LYMPH NODES: A few small subcentimeter mesenteric and retroperitoneallymph nodes, nonspecific. PELVIC ORGANS AND BLADDER: The urinary bladder is mildly distended. VASCULATURE: The abdominal aorta is nonaneurysmal. The inferior vena cavais unremarkable. Patent portal and splenic vein. Unchanged attenuation ofthe superior aspect of SMV. BONES AND SOFT TISSUES: No acute osseous abnormality. Degenerativechanges in the spine. IMPRESSION: Sequela of ongoing necrotizing pancreatitis with persistent walled offnecrosis collections in the left retroperitoneum extending inferiorlyalong the left paracolic gutter. Accurate assessment of size of thesecollections is difficult, however overall appear stable since 07/25/2023nd decreased and more mature since 06/25/2023 CT. If this radiology report contains a blank impression section, it is anincomplete radiology report. Please contact the interpreting radiologistor applicable radiology division as soon as possible to obtain thecompleted interpretation. Workstation ID: [id number] Up-to-date CT equipment and radiation dose reduction techniques wereemployed. CTDIvol: 14.4 mGy. DLP: 721 mGy-cm. us Dm Cobos MD IMG CT PROCEDURES Final R esult * (ABNORMAL) Comprehensive Metabolic Panel (08/07/2023 6:28 PM EDT) NA 140 135 - 145 mmol/L 08/07/2023 7:12 PM EDT [facility] K 4.6 3.5 - 5.3 mmol/L 08/07/2023 7:12 PM EDT [facility] Cl 106 97 - 110 mmol/L 08/07/2023 7:12 PM EDT [facility] CO2 29 24 - 32 mmol/L 08/07/2023 7:12 PM EDT [facility] Anion Gap 5 5 - 15 08/07/2023 7:12 PM EDT [facility] Glucose 171(H) 70 - 99 mg/dL 08/07/2023 7:12 PM EDT [facility] Creatinine 0.79 0.60 - 1.30 mg/dL 08/07/2023 7:12 PM EDT [facility] Calcium 9.1 8.7 - 10.7 mg/dL 08/07/2023 7:12 PM EDT [facility] Total Protein 6.9 6.0 - 8.0 g/dL 08/07/2023 7:12 PM EDT [facility] Albumin 4.1 3.5 - 4.8 g/dL 08/07/2023 7:12 PM EDT [facility] Bilirubin, Total 0.4 0.3 - 1.2 mg/dL 08/07/2023 7:12 PM EDT [facility] Alkaline Phosphatase 85 30 - 115 U/L 08/07/2023 7:12 PM EDT [facility] AST 14 10 - 40 U/L 08/07/2023 7:12 PM EDT [facility] ALT 13 10 - 40 U/L 08/07/2023 7:12 PM EDT [facility] BUN 13 7 - 23 mg/dL 08/07/2023 7:12 PM EDT [facility] eGFR >90 >=60 mL/min/1. 73m2 08/07/2023 7:12 PM EDT [facility] Comment:The estimated glomer ular filtration rate (eGFR) is calculated using a new formula developed by the NKF-ASN task force to eliminate race-based correction factors. The new formula uses serum/plasma creatinine, age, and gender to determine eGFR. A value below 60mls/min might indicate kidney disease and will be flagged. For additional information, see Barnhart et al, Am J Kidney Dis. 2021;79(2):268- 288, A Unifying Approach for GFR estimation: Recommendations of the NKF-ASN Task Force on Reassessing the Inclusion of Race in Diagnosing Kidney Disease . Blood Structure of peripheral vein / Unknown Venipuncture / Unknown 08/07/2023 6:28 PM EDT 08/07/2023 6:33 PM EDT us Dm Cobos MD LAB BLOOD ORDERABLES Valeria lockwood Result [facility] [address] [place] [address], * Microalbumin / creatinine, urine ratio (Lab Collect) (06/09/2021 9:09 AM EDT) Microalbumin, Urine 1.0 mg/dL 06/09/2021 1:27 PM EDT [facility] Creatinine, Urine 140 22 - 328 mg/dL 06/09/2021 1:27 PM EDT [facility] Microalb/Creat Ratio, Random Urine 7.1 <30.0 mcg/mgCr 06/09/2021 1:27 PM EDT [facility] Comment: Microalbumin Reference Range: Normal ? <30 mcg/mg Creatinine Microalbuminuria ? 30-300 mcg/mg Creatinine Clinical Albuminuria >300 mcg/mg Creatinine Reference: ADA Guideline. Diabetes Care. 2004;27 (suppl 1) Urine Urine specimen collection, clean catch / Unknown Non-Blood Collection / Unknown 06/09/2021 9:09 AM EDT 06/09/2021 9:09 AM EDT Jose Oseguera TRY ON BASTER LAB URINE ORDERABLES Final R esult [facility] [address] [place] [address], from Last 3 Months or Most Recently Relevant to Health Maintenance Insurance [id number] WORKERS COMPENSATION Member Subscriber Plan / Payer (Ef fective 2021-Present) Name:Collin Toth Relation to Subscriber:Self Name:Collin Toth Payer ID:[id number] Group ID:Not on file Type:Not on file Address: [id number] [place] Advance Directives Documents on File Type Date Recorded Patient Him Director Expl anation Health Care Proxy 05/25/2023 1:17 PM 05-24 Health Care Proxy 12/23/2008 12:00 AM * Full Code (Latest Code Status on File) Date Activated Date Inactivated Comments 05/24/2023 11:55 PM 06/18/2023 6:05 PM Healthcare Agents on File Name Relationship Healthcare Agent Relationshi p Communication Isadora Toth Spouse Health Care Agent Care Teams Imaging Specialist Relationship Specialty Start Date End Date Richard Upton MD [address] [facility] [place] [id number] PCP - General Family Medicine 06/25/23
--- OUTSIDE RECORDS SUMMARY | 2024-04-09 08:49 | XMS_ITS | Encounter Summary ---
Author Organization [facility] Address [address] [place] [address] Care Team Providers Care Lawn Mower Name Role Phone Richard Upton MD Primary Care Provider [phone] Encounter Details Date Type Department Care Team (Late st Contact Info) Description 06/23/2023 Orders Only [facility] Interventional Radiology [address] [place] [address] [phone] Oswaldo Gonzalez MD [address] [place] [phone] Social History Tobacco Use Types Packs/Day Years [...] Description 05/05/2024 9:00 AM EST Office Visit [facility] Primary Care [address] [place] [address] Richard Upton MD [address] [place] [address] 05/18/2024 11:00 AM EDT Follow-Up [facility] Gastroenterology [facility] [address] [place], [place] [phone] Parts Fabricator: Annalee Napoles DO [address] [place], [place] [phone] 07/09/2024 8:30 AM EDT Office Visit [facility] [address] [place] [address] Parts Fabricator: Prema Baumann, INTERNATIONAL STUDENT COUNSELOR [address] [place] [address] documented as of this encounter Visit Diagnoses Not on filedocumented in this encounter Care Teams Lawn Mower Relationship Specialty Start Date End Date Richard Upton MD [address] [place] [phone] PCP - General Family Medicine 06/25/23 documented as of this encounter
--- OUTSIDE RECORDS SUMMARY | 2024-04-09 08:49 | XMS_ITS | Referral Summary ---
Author Organization [facility] Address [address] [place] [address] Care Team Providers Care Paste Mixer Liquid Name Role Phone Richard Upton MD Primary Care Provider Encounters Date Type Department Care Team Description 04/08/2024 myChart Message [facility] Diabetes Education [address] [place] [phone] Mychart, Generic Provider [facility] 04/05/2024 Refill [facility] [address] [place] [phone] Forms Designer: Prema Baumann, BROKE BEATER Type 2 diabetes mellitus with hyperglycemia, with long-term current use of insulin (HCC) (Primary Dx) 04/05/2024 8:30 AM EST Evaluation [facility] [address] [place] [phone] Seda Mcdaniel, RN, CDE Type 2 diabetes mellitus without complication, with long-term current use of insulin (CMS/HCC) (HCC) 03/22/2024 Telephone [facility] [address] [place] [phone] Forms Designer: Prema Baumann BROKE BEATER 03/18/2024 myChart Message [facility] [address] [place] [address] [phone] Forms Designer: Prema Baumann BROKE BEATER insulin 03/08/2024 Telephone [facility] [address] [place] [address] Forms Designer: Prema Baumann BROKE BEATER Med Refill 03/08/2024 8:00 AM EST Office Visit [facility] [address] [place] [address] Forms Designer: Prema Baumann BROKE BEATER Type 2 diabetes mellitus without complication, with long-term current use of insulin (CMS/HCC) (HCC) (Primary Dx); Hyperlipidemia, unspecified hyperlipidemia type 02/26/2024 Telephone [facility] [address] [place] [address] Forms Designer: Annalee Napoles, DO 02/25/2024 Patient Outreach [facility] OCI [address] [address] Darlene Fuentes from Last 3 Months Allergies Active Allergy Reactions Criticality Noted Date [...] daily with meals and nightly. 100 each 06/18/2023 3:38 PM EDT 06/18/19 24 Active OneTouch Verio Flex Start meter Use to test blood sugars as directed. 1 each 06/18/19 24 Active alcohol swabs (Alcohol Pads) pads, medicated Use up to 8 times daily with meter checks 200 each 06/18/2023 3:38 PM EDT 06/18/19 24 [...] with long-term current use of insulin (CMS/HCC) ([facility]) Use 5 times daily. 150 each 5 11/24/19 24 Active FreeStyle Shon 3 Plus Sensor device Change sensor every 15 days. 6 each 3 11/25/19 24 Active insulin lispro 100 unit/mL insulin penIndications :Type 2 diabetes mellitus without complication, with long-term current use of insulin ([facility]) ([facility]) Inject 10-26 Units under the skin 3 times a day before meals. And 2- 6 units for nighttime snack. 30 mL 3 03/08/20 24 025 Active insulin glargine U-300 conc (Toujeo SoloStar U-300 Insulin) 300 unit/mL (1.5 mL) insulin penIndications :Type 2 diabetes mellitus with hyperglycemia, with long-term current use of insulin ([facility]) Inject 60 Units under the skin in the morning. Increase by 2 units every 3 days until fasting am is <130. MDD80 20 mL 11 04/05/19 25 Active Tresiba FlexTouch U-200 200 unit/mL (3 mL) insulin penIndications :Type 2 diabetes mellitus without complication, with long-term current use of insulin ([facility]) ([facility]) Inject 48 Units under the skin daily [...] well managed with infrequent use of dilaudid LEARNING SUPPORT SPECIALIST. With resuscitation he has reversed hemoconcentration, BUN [...] well managed with infrequent use of dilaudid LEARNING SUPPORT SPECIALIST. With resuscitation he has reversed hemoconcentration, BUN [...] well managed with infrequent use of dilaudid LEARNING SUPPORT SPECIALIST. With resuscitation he has reversed hemoconcentration, BUN [...] well managed with infrequent use of dilaudid LEARNING SUPPORT SPECIALIST. With resuscitation he has reversed hemoconcentration, BUN [...] for esophageal finding. - TPN started on 06/03 given poor progression of po intake and [...] well managed with infrequent use of dilaudid LEARNING SUPPORT SPECIALIST. With resuscitation he has reversed hemoconcentration, BUN [...] well managed with infrequent use of dilaudid LEARNING SUPPORT SPECIALIST. With resuscitation he has reversed hemoconcentration, BUN [...] edema due to fluid resucitation. POCUS AM 3/17 unimpressive. No effusions. In ICU they titrate [...] to saturation of 88-92% Metabolic acidosis 05/25/2023 4 Assessment & Plan (05/30/2023 1:35 PM EDT): [...] 12/29/201708/22 Folliculitis 12/29/2017 02/05/2019 Obesity 07/14/2009 01/08/2021 Social History Tobacco Use Types Packs/Day Years Used Date Smoking Tobacco: Former Cigarettes 0.5 20 2 001 - 2021 Smokeless Tobacco: Never Tobacco Cessation:Counseling Given: Not Answered Alcohol Use Standard Drinks/Week Comments Not Currently 0 (1 standard drink = 0.6 oz pur e alcohol) [facility] Utilities Answer Date Recorded In the [...] Description 05/05/2024 9:00 AM EST Office Visit [facility] Primary Care [address] [place] [address] Richard Upton MD [address] [place] [address] 05/18/2024 11:00 AM EDT Follow-Up [facility] Gastroenterology [facility] [address] [place] [address] Forms Designer: Annalee Napoles DO [address] [place], [place] [phone] 07/09/2024 8:30 AM EDT Office Visit [facility] [address] [place] [phone] Forms Designer: Prema Baumann, BROKE BEATER [address] [place] [address] Procedures * Due to [place] Storm[employer] law, this organization might not be sharing [...] complication, without long-term current use of insulin (CMS/HCC) (HCC) from Last 3 Months or Most Recently Relevant to Health Maintenance Results * Due to [place] Storm[employer] law, this organization might not be sharing negative HIV tests. * (ABNORMAL) POCT Glycosylated Hemoglobin (HGB A1C), interfaced (03/08/2024 8:01 AM EST) Hemoglobin A1C, POCT 8.3(H) <=5.6 % 03/08/2024 8:10 AM EST [facility] Comment: A1C Recommendation for Non- Adults with Diabetes: <7.0% ADA 2011 Standards of Medical Care in Diabetes Blood 03/08/2024 8:01 AM EST 03/08/2024 8:10 AM EST us Prema Heller BROKE BEATER LAB POCT ORDERABLES - DEVICE F inal Result Performing Organization Address [facility] Co de Phone Number [facility] [address] [place] [address], * (ABNORMAL) POCT Glucose, interfaced (03/08/2024 8:00 AM EST) Glucose, POCT 181(H) 70 - 99 mg/dL 03/08/2024 8:12 AM EST [facility] Comment: The mincemeat maker has not determined the efficacy of this test in Critically ill patients. ??[facility] defines Critically ill patients for the [...] 03/08/2024 8:12 AM EST us Prema Heller NP LAB POCT ORDERABLES - DEVICE F inal Result Performing Organization Address [facility] Co de Phone Number [facility] [address] [place] [address], [place] * CT Abdomen Pelvis with Contrast [...] obtain the completed interpretation. ? Workstation ID: [id number] Up-to-date CT equipment and radiation dose reduction [...] changes in the spine. Resulting Agency Comment [id number] Procedure Note Lily Ibarra MD - 08/07/2023 [...] possible to obtain thecompleted interpretation. Workstation ID: [id number] Up-to-date CT equipment and radiation dose reduction techniques wereemployed. CTDIvol: 14.4 mGy. DLP: 721 mGy-cm. us Dm Cobos MD IMG CT PROCEDURES Final R esult * (ABNORMAL) Comprehensive Metabolic Panel (08/07/2023 6:28 PM EDT) NA 140 135 - 145 mmol/L 08/07/2023 7:12 PM EDT [facility] K 4.6 3.5 - 5.3 mmol/L 08/07/2023 7:12 PM EDT [facility] Cl 106 97 - 110 mmol/L 08/07/2023 7:12 PM EDT [facility] CO2 29 24 - 32 mmol/L 08/07/2023 7:12 PM EDT [facility] Anion Gap 5 5 - 15 08/07/2023 7:12 PM EDT [facility] Glucose 171(H) 70 - 99 mg/dL 08/07/2023 7:12 PM EDT [facility] Creatinine 0.79 0.60 - 1.30 mg/dL 08/07/2023 7:12 PM EDT [facility] Calcium 9.1 8.7 - 10.7 mg/dL 08/07/2023 7:12 PM EDT [facility] Total Protein 6.9 6.0 - 8.0 g/dL 08/07/2023 7:12 PM EDT [facility] Albumin 4.1 3.5 - 4.8 g/dL 08/07/2023 7:12 PM EDT [facility] Bilirubin, Total 0.4 0.3 - 1.2 mg/dL 08/07/2023 7:12 PM EDT [facility] Alkaline Phosphatase 85 30 - 115 U/L 08/07/2023 7:12 PM EDT [facility] AST 14 10 - 40 U/L 08/07/2023 7:12 PM EDT [facility] ALT 13 10 - 40 U/L 08/07/2023 7:12 PM EDT [facility] BUN 13 7 - 23 mg/dL 08/07/2023 7:12 PM EDT [facility] eGFR >90 >=60 mL/min/1. 73m2 08/07/2023 7:12 PM EDT [facility] Comment:The estimated glomer ular filtration rate (eGFR) is calculated using a new formula developed by the NKF-ASN task force to eliminate race-based correction factors. The new formula uses serum/plasma creatinine, age, and gender to determine eGFR. A value below 60mls/min might indicate kidney disease and will be flagged. For additional information, see Obey et al, Am J Kidney Dis. 2021;79(2):268- 288, A Unifying Approach for GFR estimation: Recommendations of the NKF-ASN Task Force on Reassessing the Inclusion of Race in Diagnosing Kidney Disease . Blood Structure of peripheral vein / Unknown Venipuncture / Unknown 08/07/2023 6:28 PM EDT 08/07/2023 6:33 PM EDT us Dm Cobos MD LAB BLOOD ORDERABLES Valeria lockwood Result [facility] [address] [place] [address], * Microalbumin / creatinine, urine ratio (Lab Collect) (06/09/2021 9:09 AM EDT) Microalbumin, Urine 1.0 mg/dL 06/09/2021 1:27 PM EDT [facility] Creatinine, Urine 140 22 - 328 mg/dL 06/09/2021 1:27 PM EDT [facility] Microalb/Creat Ratio, Random Urine 7.1 <30.0 mcg/mgCr 06/09/2021 1:27 PM EDT [facility] Comment: Microalbumin Reference Range: Normal ? <30 mcg/mg Creatinine Microalbuminuria ? 30-300 mcg/mg Creatinine Clinical Albuminuria >300 mcg/mg Creatinine Reference: ADA Guideline. Diabetes Care. 2004;27 (suppl 1) Urine Urine specimen collection, clean catch / Unknown Non-Blood Collection / Unknown 06/09/2021 9:09 AM EDT 06/09/2021 9:09 AM EDT Jose Oseguera BROKE BEATER LAB URINE ORDERABLES Final R esult [facility] [address] [place] [address], from Last 3 Months or Most Recently Relevant to Health Maintenance Insurance WORKERS COMPENSATION Advance Directives Documents on File Type Date Recorded Patient Slice Plug Cutter Operator Expl anation Health Care Proxy 05/25/2023 1:17 PM 05-24 Health Care Proxy 12/23/2008 12:00 AM * Full Code (Latest Code Status on File) Date Activated Date Inactivated Comments 05/24/2023 11:55 PM 06/18/2023 6:05 PM Healthcare Agents on File Name Relationship Healthcare Agent Relationshi p Communication Isadora Toth Spouse Health Care Agent Care Teams Paste Mixer Liquid Relationship Specialty Start Date End Date Richard Upton MD [address] [facility] [place] [address] PCP - General Family Medicine 06/25/23
--- OUTSIDE RECORDS SUMMARY | 2024-04-09 08:49 | XMS_ITS | Encounter Summary ---
Author Organization [facility] Address [address] [place] [address] Care Team Providers Care Brim Edge Trimmer Name Role Phone Richard Upton MD Primary Care Provider [phone] Encounter Details Date Type Department Care Team (Late st Contact Info) Description 06/19/2023 Orders Only [facility] Interventional Radiology [address] [place] [address] [phone] Alvaro Kumar MD [address] [place] [address] Social History Tobacco Use Types Packs/Day Years [...] Description 05/05/2024 9:00 AM EST Office Visit [facility] Primary Care [address] [place] [address] Richard Upton MD [address] [place] [address] 05/18/2024 11:00 AM EDT Follow-Up [facility] Gastroenterology Clinic [address] [place] [address], [place] [phone] Weigher Packing: Annalee Napoles DO [address] [place], [place] [phone] 07/09/2024 8:30 AM EDT Office Visit [facility] Diabetes Clinic [address] [place] [address] Weigher Packing: Prema Baumann, COMPUTER NETWORK AND SYSTEMS ENGINEER [address] [place] [address] documented as of this encounter Visit Diagnoses Not on filedocumented in this encounter Care Teams Brim Edge Trimmer Relationship Specialty Start Date End Date Richard Upton MD [address] [place] [phone] PCP - General Family Medicine 06/25/23 documented as of this encounter
--- OUTSIDE RECORDS SUMMARY | 2024-04-09 08:49 | XMS_ITS | Encounter Summary ---
Author Organization [facility] Address [address] [place] [address] Care Team Providers Care School Health Aide Name Role Phone Richard Upton MD Primary Care Provider [phone] Encounter Details Date Type Department Care Team (Late st Contact Info) Description 03/22/2024 Telephone [facility] Diabetes Clinic [address] [place], [place] [phone] Gas Processing Plant Operator: Prema Baumann, WARP HAND [address] [place] [address] Social History Tobacco Use Types Packs/Day Years Used Date Smoking Tobacco: Former Cigarettes 0.5 20 2 001 - 2020 Smokeless Tobacco: Never Alcohol Use Standard Drinks/Week Comments Not Currently 0 (1 standard drink = 0.6 oz pur e alcohol) [facility] Utilities Answer Date Recorded In the past 12 months has e electric, gas, oil, or water company [...] encounter Miscellaneous Notes * Telephone Encounter - Prema Heller NP - 03/23/2024 2:53 PM EST Images from the original note were not included. Contacted patient and is currently on: Tresiba 54 units - increase dose by 2 units every 3-4 days until fasting glucose < 130 without significant hypoglycemia. Max dose 60. Humalog as in last office note. Adjustments: Humalog before meals 10 units small meal 14 units regular meal (in terms of carbs) 16 units large meals 6-8 units with evening snack (flat dose - no correction) ADD insulin based on glucose 151-200 2 units 201-250 4 units >250 6 units May continue to adjust Tresiba to max dose of 60. He verbalized understanding Sensor data: * Telephone Encounter - Keisha Sharif LPN - 03/22/2024 8:25 AM EST Shon data in media * Telephone Encounter - Keisha Sharif LPN - 03/22/2024 8:25 AM EST ----- Message from ARLENE Heller NP sent at 03/08/2024 8:46 AM EST ----- Regarding: shon download Please download patient's shon data and send to me for my review. Thank you,\ Prema documented in this encounter Plan of Treatment Upcoming Encounters Date Type Department Care Team (Late st Contact Info) Description 05/05/2024 9:00 AM EST Office Visit [facility] Primary Care [address] [place] [address] Richard Upton MD [address] [place] [address] 05/18/2024 11:00 AM EDT Follow-Up [facility] Gastroenterology Clinic [address] [place] [address] Gas Processing Plant Operator: Annalee Napoles, [address] [place], [place] [phone] 07/09/2024 8:30 AM EDT Office Visit [facility] ACC Building Diabetes Clinic [address] [place] [address] Gas Processing Plant Operator: Prema Baumann, WARP HAND [address] [place] [address] documented as of this encounter Visit Diagnoses Not on filedocumented in this encounter Care Teams School Health Aide Relationship Specialty Start Date End Date Richard Upton MD [address] [place] [address] PCP - General Family Medicine 06/25/23 documented as of this encounter
--- OUTSIDE RECORDS SUMMARY | 2024-04-09 08:49 | XMS_ITS | Encounter Summary ---
Author Organization [facility] Address [address] [place] [address] Care Team Providers Care Broach Grinder Name Role Phone Richard Upton MD Primary Care Provider [phone] Encounter Details Date Type Department Care Team (Late st Contact Info) Description 11/03/2023 Orders Only [facility] Building [address], [address]th [place] [address] Eleazar Prince MD [address] [place] [address] Social History Tobacco Use Types Packs/Day Years Used Date Smoking Tobacco: Former Cigarettes 0.5 20 2 001 - 2020 Smokeless Tobacco: Never Alcohol Use Standard Drinks/Week Comments Not Currently 0 (1 standard drink = 0.6 oz pur e alcohol) [facility] Utilities Answer Date Recorded In the [...] Visit [facility] Primary Care [address] [place] [address] Richard Upton MD [address] [place] [address] 05/18/2024 11:00 AM EDT Follow-Up [facility] Gastroenterology Clinic [address] [place] [address] Gas Specialist: Annalee Napoles DO [address] [place] [address] 07/09/2024 8:30 AM EDT Office Visit [facility] ACC Building Diabetes Clinic [address] [place] [address] Gas Specialist: Prema Baumann, CUT OFF SAW SET UP OPERATOR [address] [place] [address] documented as of this encounter Visit Diagnoses Not on filedocumented in this encounter Care Teams Broach Grinder Relationship Specialty Start Date End Date Richard Upton MD [address] [place] [address] PCP - General Family Medicine 06/25/23 documented as of this encounter
--- OUTSIDE RECORDS SUMMARY | 2024-04-09 08:49 | XMS_ITS | Encounter Summary ---
Author Organization [facility] Address [address] [place] [address] Care Team Providers Care Fuel Truck Driver Name Role Phone Richard Upton MD Primary Care Provider [phone] Encounter Details Date Type Department Care Team (Late st Contact Info) Description 04/08/2024 [email or web address][employer]net Message [facility] Diabetes Education [address] [place] [address] Mychart, Generic Provider [facility] [place] [phone] [facility] Social History Tobacco Use Types Packs/Day Years Used Date Smoking Tobacco: Former Cigarettes 0.5 20 2 001 - 2020 Smokeless Tobacco: Never Alcohol Use Standard Drinks/Week Comments Not Currently 0 (1 standard drink = 0.6 oz pur e alcohol) [facility] Utilities Answer Date Recorded In the past [...] Description 05/05/2024 9:00 AM EST Office Visit [facility] Primary Care [address] [place] [phone] Richard Upton MD [address] [place] [address] 05/18/2024 11:00 AM EDT Follow-Up [facility] Gastroenterology Clinic [address] [place] [address] Deep Well Contractor: Annalee Napoles, [address] [place] [address] 07/09/2024 8:30 AM EDT Office Visit [facility] ACC Building Diabetes Clinic [address] [place] [address] Deep Well Contractor: Prema Baumann, METER TESTER [address] [place] [address] documented as of this encounter Visit Diagnoses Not on filedocumented in this encounter Care Teams Fuel Truck Driver Relationship Specialty Start Date End Date Richard Upton MD [address] [place] [address] PCP - General Family Medicine 06/25/23 documented as of this encounter
--- OUTSIDE RECORDS SUMMARY | 2024-04-09 08:49 | XMS_ITS | Encounter Summary ---
Author Organization [facility] Address [address] [place] [address] Care Team Providers Care Sex Worker Or Escort Name Role Phone Richard Upton MD Primary Care Provider [phone] Encounter Details Date Type Department Care Team (Late st Contact Info) Description 02/26/2024 Telephone [facility] Gastroenterology Clinic [address] [place], [place] [phone] Switchboard Manager: Annalee Napoles, DO [address] [place] [address] Social History Tobacco Use Types Packs/Day Years Used Date Smoking Tobacco: Former Cigarettes 0.5 20 2 001 - 2020 Smokeless Tobacco: Never Alcohol Use Standard Drinks/Week Comments Not Currently 0 (1 standard drink = 0.6 oz pur e alcohol) [facility] Utilities Answer Date Recorded In the past 12 months has e [employer], gas, oil, or water [employer] threatened to shut off services in your [...] encounter Miscellaneous Notes * Telephone Encounter - Rashaun Butler - 02/26/2024 1:43 PM EST Called and spoke with PT to r/s follow up ellington from Yulia Mckee 05/[address] Hutchinson 05/18 11 am documented in this encounter Plan of Treatment Upcoming Encounters Date Type Department Care Team (Late st Contact Info) Description 05/05/2024 9:00 AM EST Office Visit [facility] Primary Care [address] [place] [phone] Richard Upton MD [address] [place] [address] 05/18/2024 11:00 AM EDT Follow-Up [facility] Gastroenterology Clinic [address] [place] [address] Switchboard Manager: Annalee Napoles DO [address] [place] [address] 07/09/2024 8:30 AM EDT Office Visit [facility] ACC Building Diabetes Clinic [address] [place] [address] Switchboard Manager: rPema Baumann, BED MAKER [address] [place] [address] documented as of this encounter Visit Diagnoses Not on filedocumented in this encounter Care Teams Sex Worker Or Escort Relationship Specialty Start Date End Date Richard Upton MD [address] [place] [address] PCP - General Family Medicine 06/25/23 documented as of this encounter
--- OUTSIDE RECORDS SUMMARY | 2024-04-09 08:49 | XMS_ITS | Encounter Summary ---
Author Organization [facility] Address [address] [place] [phone] Care Team Providers Care Flue Cleaner Name Role Phone Richard Upton MD Primary Care Provider [phone] Reason for Visit * Reason Comments Type 2 Diabetes DSMT * Consultation (Routine) - Pending Review Specialty Diagnoses / Procedures Referred By Contbutch t Referred To Contact Diabetes Services Diagnoses Type 2 diabetes mellitus without complication, with long-term current use of insulin (CMS/HCC) ([facility]) Prema Heller, GOLF TOURNAMENT CONSULTANT [address] [place] [address] Phone: tel: fax: [facility] Diabetes Education [address] [place] [address] Phone: tel: fax: Referral ID Status Reason Start Date Expiration Date Visits Requested Visits Authorized [id number] Pending Review Specialty Services Required 4 09/07/2025 6 6 Encounter Details Date Type Department Care Team (Late st Contact Info) Description 04/05/2024 8:30 AM EST Evaluation [facility] Diabetes Education [address] [place] [address] Seda Mcdaniel RN, CDE Type 2 diabetes mellitus without complication, with long-term current use of insulin (CMS/HCC) (HCC) Social History Tobacco Use Types Packs/Day Years Used Date Smoking Tobacco: Former Cigarettes 0.5 20 2 001 - 2020 Smokeless Tobacco: Never Alcohol Use Standard Drinks/Week Comments Not Currently 0 (1 standard drink = 0.6 oz pur e alcohol) [facility] Utilities Answer Date Recorded In [...] PM EST documented as of this encounter Patient Instructions * Patient Instructions* Seda Mcdaniel RN, CDE - 04/05/2024 8:30 AM EST Snacks - 15 to 20 grams of carb - with protein also Meals - 45 grams of carb = medium meal, small (30 grams) and large (over 45 grams) Space the meals and snacks at least 2 to 3 hours apart Take 10 to 15 minute walk after your meals Humalog before meals/snack the same but sliding scale changes to ADD insulin based on glucose 151-200 3 units 201-250 5 units >250 7 units Toujeo - 60 units Carry your Humalog insulin with using Look at pump info documented in this encounter Progress Notes * Seda Mcdaniel RN, CDE - 04/05/2024 8:30 AM EST Images from the original note were not included. DSMT referral for uncontrolled diabetes; potential insulin pump therapy. Vladimir is currently taking Toujeo 68 units with Humalog 10 (small) 14 (medium) 16 (large) 6 (for bedtime snack but no correction) plus correction based upon glucose level ADD insulin based on glucose 151-200 3 units 201-250 5 units >250 7 units He reports that he cannot take Ozempic or Jardiance as he developed pancreatitis when on these. He does not like metformin. His goal is to stop insulin. However, curretnly he needs to improve his glucose levels so he can get back surgery. Monitoring over the last 14 days Average glucose is 211 mg/dl with time in range at 35%, low and very low at 0%, high at 38% and very high at 27%. This is an improvement since last phone call. Diabetes Education: Ewed the natural course of type 2 diabetes and the need for medication. Discussed that he reports he can't take 2 of the categories of medication and he may have to remain on insulin.If he increases his activity post surgery, hi dose will probably decrease. Meal planing - he was not able to relate what a small, medium and large meal were. Reviewed label reading and the plate method. Discussed using small at 30 grams, medium at 45 grams and large at 60 grams, snack of 15 grams. Target time in range and target BG were reviewed and discussed in comparison to his range and average glucose/ Discussed how even a 10 to 15 minute walk post meal would help control post prandial highs. Discussed treating hypoglycemia with only 15 grams of CHO vs 30 to 60 grams that he has been doing.He was concerned that when he treats a low, he goes up into the 300s. Discussed not using foods that have protein or fat to treat hypoglycemia a it delays the absorption of the glucose. To save the peanut butter crackers to use after the glucose has risen and if not eating for several hours. Discussed that his body has grown accustomed to higher glucose levels and will need to adjust to lower levels. Discussed the basics of insulin pump therapy: basal vs bolus insulin and integration with sensors for automatic adjustment based upon predicted glucose. He is only interested in a tubeless pump. Plan To look at CHO content of meals to determine size of meal for insulin dosing or use the plate method and CHO content on plate 1/4 plate = small, 1/3 plate = medium and 1/2 plate = large To increase Toujeo to 60 units To change SS Humalog by 1 unit based on TDD and does not correct to target. Educator to review doug in 3 to 4 days To review information re: Omnipod pump Educational tools used: [employer] Meal Planning and Omnipod pamphlet He verbalizes understanding and agreement to plan. [place]: 60 minutes, individual documented in this encounter Plan of Treatment Upcoming Encounters Date Type Department Care Team (Late st Contact Info) Description 05/05/2024 9:00 AM EST Office Visit [facility] Primary Care [address] [place] [phone] Richard Upton MD [address] [place] [address] 05/18/2024 11:00 AM EDT Follow-Up [facility] Gastroenterology Clinic [address] [place] [address] Chlorine Plant Operator: Annalee Napoles DO [address] [place] [address] 07/09/2024 8:30 AM EDT Office Visit [facility] ACC Building Diabetes Clinic [address] [place] [address] Chlorine Plant Operator: Prema Baumann, GOLF TOURNAMENT CONSULTANT [address] [place] [address] [phone] documented as of this encounter Visit Diagnoses Diagnosis Type 2 diabetes mellitus without complication, with long-term current use of insulin (CMS/HCC) (HCC) documented in this encounter Care Teams Flue Cleaner Relationship Specialty Start Date End Date Richard Upton MD [address] [place] [address] PCP - General Family Medicine 06/25/23 documented as of this encounter
--- OUTSIDE RECORDS SUMMARY | 2024-04-09 08:49 | XMS_ITS | Encounter Summary ---
Author Organization [facility] Address [address] [place] [address] Care Team Providers Care Commercial Reporter Name Role Phone Richard Upton MD Primary Care Provider [phone] Reason for Visit * Reason Onset Date Comments Don't Cancel Physical 12/04/2020 Encounter Details Date Type Department Care Team (Late st Contact Info) Description 12/04/2020 Telephone [facility] Central Scheduling Department [address] [place] [address] Telephone Intake, Staff Don't Cancel Physical Social History Tobacco Use Types Packs/Day Years Used Date Smoking Tobacco: Some Days Cigarettes Smokeless Tobacco: Never Sex and Gender Information Value Date Recorded Sex Assigned at Male 02/05/2023 8:41 AM EST Legal Sex Male 7:31 AM EDT Gender Identity Male 02/11/2023 3:22 PM EST Sexual Orientation Straight 02/11/2023 3: 22 PM EST documented as of this encounter Miscellaneous Notes * Telephone Encounter - Gus Block - 12/04/2020 12:51 PM EDT Patient calling states that he accidentally might have hit the wrong button on the phone and cancelled his physical on 12/11 at 9:00 am, but he would like to keep this appt. Collin can be reached at [phone]. documented in this encounter Plan of Treatment Upcoming Encounters Date Type Department Care Team (Late st Contact Info) Description 05/05/2024 9:00 AM EST Office Visit [facility] Primary Care [address] [place] [address] Richard Upton MD [address] [place] [address] 05/18/2024 11:00 AM EDT Follow-Up [facility] Gastroenterology Clinic [address] [place] [address] Moving Consultant: Annalee Napoles DO [address] [place] [address] 07/09/2024 8:30 AM EDT Office Visit [facility] ACC Building Diabetes Clinic [address] [place] [address] Moving Consultant: Prema Baumann, GLAZE CARRIER [address] [place] [address] documented as of this encounter Visit Diagnoses Not on filedocumented in this encounter Additional Health Concerns Infection Onset Date Last Indicated Resolved Time R/O C.diff 06/11/2023 06/11/2023 06/12/2023 9:09 AM EDT documented as of this encounter Care Teams Commercial Reporter Relationship Specialty Start Date End Date Richard Upton MD [address] [place] [address] PCP - General Family Medicine 06/25/23 documented as of this encounter
--- OUTSIDE RECORDS SUMMARY | 2024-04-09 08:49 | XMS_ITS | Encounter Summary ---
Author Organization [facility] Address [address] [place] [phone] Care Team Providers Care Rug Shampooer Name Role Phone Richard Upton MD Primary Care Provider [phone] Encounter Details Date Type Department Care Team (Late st Contact Info) Description 03/18/2024 myChart Message [facility] Diabetes Clinic [address] [place] [phone] Top Precipitator Operator: Prema Baumann, HEALTH INSURANCE ASSESSOR [address] [place] [address] [phone] insulin Social History Tobacco Use Types Packs/Day Years Used Date Smoking Tobacco: Former Cigarettes 0.5 20 2 001 - 2020 Smokeless Tobacco: Never Alcohol Use Standard Drinks/Week Comments Not Currently 0 (1 standard drink = 0.6 oz pur e alcohol) [facility] Utilities Answer Date Recorded In the past 12 months has e [employer], gas, oil, or water [employer] threatened to shut off services in your [...] Description 05/05/2024 9:00 AM EST Office Visit [facility] Primary Care [address] [place] [address] Richard Upton MD [address] [place] [address] 05/18/2024 11:00 AM EDT Follow-Up [facility] Gastroenterology Clinic [address] [place] [address] Top Precipitator Operator: Annalee Napoles, [address] [place] [address] 07/09/2024 8:30 AM EDT Office Visit [facility] Building Diabetes Clinic [address] [place] [address] Top Precipitator Operator: Prema Baumann NP [address] [place] [address] documented as of this encounter Visit Diagnoses Not on filedocumented in this encounter Care Teams Rug Shampooer Relationship Specialty Start Date End Date Richard Upton MD [address] [place] [address] PCP - General Family Medicine 06/25/23 documented as of this encounter
--- NOTE | 2024-04-09 09:05 | HO.SPINEOV ---
Intake Visit Reasons: discuss sx Intake Note: Mr. Toth is here to Discuss Surgery Market Garden Worker Required: No Allergies oxycodone [From Percocet] Adverse Reaction (Intermediate, Verified 04/09/24 09:06) Nausea and Vomiting Assessment & Plan Assessment & Plan (1) Lumbar disc herniation with radiculopathy: Code(s): M51.16 - Intervertebral disc disorders with radiculopathy, lumbar region Category: Medical (2) Numbness and tingling in right hand: Code(s): R20.0 - Anesthesia of skin; R20.2 - Paresthesia of skin Category: Medical (3) Numbness and tingling of both lower extremities: Code(s): R20.0 - Anesthesia of skin; R20.2 - Paresthesia of skin Category: Medical Plan Dear colleague, On 04/09/2024 I saw Collin Toth to discuss his ongoing lumbar radiculopathy. He was originally scheduled for surgery January 2023 but the A1C was too high and surgery was postponed. He developed pancreatitis from the antidiabetic medication and was hospitalized for 2 and half months. Currently using insulin and his A1c is around 8 any comes in to discuss surgery again. He not only has the right lumbar radiculopathy but he also complains of numbness in his right hand and a feeling that he is having socks on the bottom of his feet. He thought this was all related to the back. The right hand goes numb during driving and at night. Then it is not only confined to the hand but expands to the whole right arm. He also has a pain in his bilateral thighs and maybe mild weakness. On exam he is able to come out of his chair with his arms crossed which represents a good strength. Wrist flexion produces numbness in his right hand. The left hand is unaffected. The numbness in his right hand is mostly in his 3rd and 4th finger. Strength is 5/5 but produces pain over right upper arm. Reflexes are low to absent. No Olga Lidia reflexes. Gait is undisturbed. I explained to the patient that the only symptom that can explain from his disc herniation is his right leg pain. The other symptoms are either coming from a diabetic polyneuropathy or cervical myelopathy. I will order an EMG and an MRI of the cervical spine. I will see him after those tests are done. I spent 30 minutes in his consult to review imaging, history and physical and discuss plan of care. Thank you for allowing me take care of your patient. Isaiah Grace MD, PhD Spine Fellowship Trained Neurosurgeon Director, [facility] Orders: Orders NE electromyogram (EMG) Today R20.0 - Anesthesia of skin, R20.2 - Paresthesia of skin MR cervical spine wo con Today R20.0 - Anesthesia of skin, R20.2 - Paresthesia of skin Coding Level of Care Code Est Pt Level 4 (77099) Diagnoses Lumbar disc herniation with radiculopathy M51.16 Numbness and tingling in right hand R20.0; R20.2 Numbness and tingling of both lower extremities R20.0; R20.2
== END 2024-04-09 09:24 | disposition home or self-care (01) ==
PROVIDERS: Visit Provider Neurological Surgery
DX: M51.16 Intervertebral disc disorders with radiculopathy, lumbar region (principal); R20.0 Anesthesia of skin; R20.2 Paresthesia of skin
CPT/HCPCS: 99214

== ENCOUNTER → 2024-04-09 08:37 | Outpatient (BNVA) | payer OTHER, SELFPAY | PROVIDERS: Visit Provider Neurological Surgery ==

== ENCOUNTER 2024-05-13 14:22 | Outpatient (REF) | payer OTHER, SELFPAY ==
--- NOTE | 2024-05-13 14:25 | EMG_ITS ---
Chief complaint: Chronic lower back pain, history of diabetes, complaining of pain and numbness right hand and both feet. Symptoms in both feet for over 2 years. Symptoms on right hand started a few months ago. Reason for referral: Evaluate for peripheral neuropathy versus cervical radiculopathy Referred by: Dr. Grace Procedure done: Right upper and bilateral lower extremity NCS/EMG Precautions and/or limitations: None The limb temperature was monitored continuously and remained between 32-36 degrees C during the performance of the NCS. Nerve Conduction Studies Anti Sensory Summary Table ?Stim Site NR Onset (ms) Norm Onset (ms) Peak (ms) Norm Peak (ms) O-P Amp (?V) Norm O-P Amp Site1 Site2 Delta-0 (ms) Dist (cm) Rodney (m/s) Norm Rodney (m/s) Right Median Anti Sensory (2nd Digit) Wrist ? 4.5 6.4 <3.6 14.2 >10 Wrist 2nd Digit 4.5 14.0 31 Right Radial Anti Sensory (Thumb) Forearm ? 1.9 2.5 <3.1 0.2 Forearm Thumb 1.9 0.0 Left Sural Anti Sensory (Lat Mall) Calf NR <4.0 >5.0 Calf Lat Mall 14.0 Right Sural Anti Sensory (Lat Mall) Calf NR <4.0 >5.0 Calf Lat Mall 14.0 Right Ulnar Anti Sensory (5th Digit) Wrist ? 2.8 3.5 <3.7 11.5 >15.0 Wrist 5th Digit 2.8 14.0 50 Motor Summary Table ?Stim Site NR Onset (ms) Norm Onset (ms) O-P Amp (mV) Norm O-P Amp iAmp (mV) Amp (1st) (%) Site1 Site2 Delta-0 (ms) Dist (cm) Rodney (m/s) Norm Rodney (m/s) Right Median Motor (Abd Poll Brev) Wrist ? 6.4 <3.9 9.8 >4.5 12.3 100.0 Elbow Wrist 5.0 18.0 36 >45 Elbow ? 11.4 7.8 9.7 79.6 Right Peroneal Motor (Ext Dig Brev) Ankle ? 6.1 <4.0 0.7 >2.5 0.9 100.0 Ankle Ext Dig Brev 6.1 0.0 B Fib ? 15.3 1.1 1.3 157.1 B Fib Ankle 9.2 30.0 33 >40 Poplt ? 16.6 1.1 1.3 157.1 Poplt B Fib 1.3 5.0 38 >40 Left Tibial Motor (Abd Aranda Brev) Ankle ? 6.1 <5 1.2 >2.5 1.2 100.0 Ankle Abd Aranda Brev 6.1 0.0 Knee ? 19.2 0.7 0.7 58.3 Knee Ankle 13.1 35.0 27 >40 Right Tibial Motor (Abd Aranda Brev) Ankle NR <5 >2.5 Ankle Abd Aranda Brev 0.0 Knee NR Knee Ankle 0.0 >40 Right Ulnar Motor (Abd Dig Minimi) Wrist ? 3.3 <3.0 8.1 >5 11.0 100.0 B Elbow Wrist 3.7 18.0 49 >45 B Elbow ? 7.0 8.4 11.3 103.7 A Elbow B Elbow 1.4 10.0 71 >45 A Elbow ? 8.4 8.2 11.2 101.2 EMG ?Side Muscle Nerve Root Ins Act Fibs Psw Amp Dur Poly Recrt Int Pat Comment Right 1stDorInt Ulnar C8-T1 Nml Nml Nml Nml Nml 0 Nml Complete Right FlexCarRad Median C6-7 Nml Nml Nml Nml Nml 0 Nml Complete Right Biceps Musculocut C5-6 Nml Nml Nml Nml Nml 0 Nml Complete Right Triceps Radial C6-7-8 Nml Nml Nml Nml Nml 0 Nml Complete Right Deltoid Axillary C5-6 Nml Nml Nml Nml Nml 0 Nml Complete Right AbdHallucis MedPlantar S1-2 Incr 1+ 1+ Nml Nml 0 Nml Complete Right AntTibialis Dp Br Peron L4-5 Nml Nml Nml Nml Nml 0 Nml Complete Right PostTibialis Tibial L5, S1 Nml Nml Nml Nml Nml 0 Nml Complete Right MedGastroc Tibial S1-2 Incr 1+ 1+ Nml Nml 0 Nml Complete Right VastusMed Femoral L2-4 Nml Nml Nml Nml Nml 0 Nml Complete Left AbdHallucis MedPlantar S1-2 Incr 1+ 1+ Nml Nml 0 Nml Complete Left AntTibialis Dp Br Peron L4-5 Nml Nml Nml Nml Nml 0 Nml Complete Left PostTibialis Tibial L5, S1 Nml Nml Nml Nml Nml 0 Nml Complete Left MedGastroc Tibial S1-2 Incr 1+ 1+ Nml Nml 0 Nml Complete Left VastusMed Femoral L2-4 Nml Nml Nml Nml Nml 0 Nml Complete Paraspinal EMG ?Side Muscle Nerve Root Ins Act Fibs Psw Comment Right Cervical Upper Rami Nml Nml Nml Right Cervical Mid Rami Nml Nml Nml Right Cervical Lower Rami Nml Nml Nml Right Lumbar Upper Rami Nml Nml Nml Right Lumbar Mid Rami Nml Nml Nml Right Lumbar Lower Rami Nml Nml Nml Left Lumbar Upper Rami Nml Nml Nml Left Lumbar Mid Rami Nml Nml Nml Left Lumbar Lower Rami Nml Nml Nml FINDINGS: Right median motor nerve showed prolonged distal latency, normal amplitude and slow conduction velocity. Right ulnar motor nerve showed prolonged distal latency, normal amplitude and normal conduction velocity. No conduction block across elbow. Right peroneal nerve showed very small amplitudes, with prolonged distal latency and slow conduction velocities throughout. No conduction block across fibular neck. Right tibial nerve showed absent response. Left tibial nerve showed showed prolonged distal latency, small amplitude and slow conduction velocity. Right median sensory nerve showed prolonged peak latency. Right median sensory nerve showed small amplitude. Right radial sensory nerve showed small amplitude. Bilateral sural nerves showed absent response. Concentric needle EMG was performed in selected muscles of the right upper and bilateral lower extremities, right cervical and bilateral lumbar paraspinals. Study revealed signs of electric abnormalities as shown in the table above. Symmetric findings of increased insertional activity, PSWs and fibrillations, on bilateral medial gastrocnemius and AH muscles. No ongoing denervation seen on paraspinals. IMPRESSION: 1. This is an abnormal study. 2. 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 3. There is no electrodiagnostic evidence for median neuropathy at the wrist, ulnar neuropathy at the elbow, or peroneal neuropathy at fibular neck. 4. There are no electrodiagnostic findings for ongoing cervical or lumbar radiculopathy. 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 Thank you for your kind referral. Ivett Poole MD, JARROD Board Certified, [place] Board [employer] and Rehabilitation (ABPMR) Board Certified, [place] Board of Electrodiagnostic Medicine (ABEM) CODIN [phone] MTDD
--- OUTSIDE RECORDS SUMMARY | 2024-05-13 17:38 | XMS_ITS | Encounter Summary ---
Author Organization [facility] Address [address] [place] [address] Care Team Providers Care Learning Solutions Specialist Name Role Phone Richard Upton MD Primary Care Provider [phone] Encounter Details Date Type Department Care Team (Late st Contact Info) Description 04/08/2024 SevenLunches Message [facility] Diabetes Education [address] [place] [id number] Mychart, Generic Provider [facility] [place] [id number] [facility] History Tobacco Use Types Packs/Day Years Used Date Smoking Tobacco: Former Cigarettes 0.5 20 2 001 - 2020 Smokeless Tobacco: Never Alcohol Use Standard Drinks/Week Comments Not Currently 0 (1 standard drink = 0.6 oz pur e alcohol) [facility] Utilities Answer Date Recorded In the past [...] Care Team (Late st Contact Info) Description 07/09/2024 8:30 AM EDT Office Visit [facility] [address] [place] [address] Telegraph Repeater Technician: Prema Baumann, [employer] MECHANIC [address] [place], [place] [phone] Scheduled Procedures Name Priority Associated Diagnoses Date/Ti me COLONOSCOPY SCREENING, LOW R ISK WITH POSSIBLE MODERATE SEDATION Healthcare maintenance documented as of this encounter Visit Diagnoses Not on filedocumented in this encounter Care Teams Learning Solutions Specialist Relationship Specialty Start Date End Date Richard Upton MD [address] [place] [id number] PCP - General Family Medicine 06/25/23 documented as of this encounter
--- OUTSIDE RECORDS SUMMARY | 2024-05-13 17:38 | XMS_ITS | Encounter Summary ---
Author Organization [facility] Address [address] [place] [id number] Care Team Providers Care Waiter/Waitress Room Service Name Role Phone Richard Upton MD Primary Care Provider [phone] Encounter Details Date Type Department Care Team (Late st Contact Info) Description 03/18/2024 myChart Message [facility] [address] [place] [id number] Utility Bill Collector: Prema Baumann, [employer] [address] [place] [address] [id number] insulin Social History Tobacco Use Types Packs/Day Years Used Date Smoking Tobacco: Former Cigarettes 0.5 20 2 001 - 2020 Smokeless Tobacco: Never Alcohol Use Standard Drinks/Week Comments Not Currently 0 (1 standard drink = 0.6 oz pur e alcohol) [facility] Utilities Answer Date Recorded In the past 12 months has e [employer], gas, oil, or water [employer] threatened to shut off services in your [...] Description 07/09/2024 8:30 AM EDT Office Visit [facility] [address] [place] [address] Utility Bill Collector: Prema Baumann, [employer] [address] [place] [address] Scheduled Procedures Name Priority Associated Diagnoses Date/Ti me COLONOSCOPY SCREENING, LOW R ISK WITH POSSIBLE MODERATE SEDATION Healthcare maintenance documented as of this encounter Visit Diagnoses Not on filedocumented in this encounter Care Teams Waiter/Waitress Room Service Relationship Specialty Start Date End Date Richard Upton MD [address] [place] [address] [place] [address] PCP - General Family Medicine 06/25/23 documented as of this encounter
--- OUTSIDE RECORDS SUMMARY | 2024-05-13 17:38 | XMS_ITS | Data Portability ---
Author Organization [facility] Address [address] [place] [address] Care Team Providers Care Pattern Data Operator Name Role Phone JONI NULL Referring Provider [phone] Assessment No assessment recorded. Plan of Treatment Reminders Order Date Submit Date Provider Last Modified By Organization Details Last Modified Time Details Appointments None recorded. Lab None recorded. Referral None recorded. Procedures fluorescein eye stain (PROC) 2018 019 [email or web address] Not available 9 08:48:25 Surgeries None recorded. Imaging None recorded. Medication Orders erythromyci n 5 mg/gram (0.5 %) eye ointment 2018 019 [email or web address] Not available 9 16:14:53 Patient TargetsNo targets recorded. Patient InstructionsNo instructions recorded. Reason for Referral None Reported. Procedures Surgical History Date Name Laterality Status Provider Name and Address Organization Details Recorded Time 9 Fluorescein eye exam completed KEAGAN Dyer [facility] 06/07/2018 16:12:53 Imaging Results None recorded. [...] Avai lable Vitals Date Recorded Heart rate Oxygen saturation Oxygen saturation in Arterial blood by Pulse oximetry Body temperature Systolic blood pressure Diastolic blood pressure Provider Name and Address Organization Details Last Updated DateTime 9 110 /min 97 % 97 % 98.7 [degF] 120 mm[Hg] 80 mm[Hg] Denise Ho [facility] 9 10:28:02 Social History None recorded. Functional Status None recorded. Mental Status None recorded. Family History Nothing Reported. Medical History No medical history recorded. Past Encounters Encounter ID Performer Location Encounter Start Date Encounter Closed Date Diagnosis/Indication Diagnosis SNOMED-CT Code Diagnosis ICD10 Code Diagnosis Note [id number] Madisyn Diaz MD [facility] [address] [place] [address] 06/07/2018 09:58:18 06/07/2018 10:51:49 Foreign body in eye [id number] T15.90XA 42/M with R-side FB sensation after [...] Grubbs Member ID Guarantor Name 06/07/2018 1 [place] [id number] Collin Toth [id number] Collin Toth Notes Date Note Type [...] no swelling, no fever Madisyn Diaz MD [address] [place] [address], [phone], [facility] 06/07/2018 18:47:52
--- OUTSIDE RECORDS SUMMARY | 2024-05-13 17:38 | XMS_ITS | Clinical Summary ---
Author Organization [facility] Address [address] [place] [address] Care Team Providers Care Medical Technologist Chemistry Name Role Phone Joni Null MD Primary [...] BCBS FEE FOR SERVICE HMO Care Teams Medical Technologist Chemistry Relationship Specialty Start Date End Date Joni Null MD [address] [place] [address] PCP - General Family Medicine 07/15/22
--- OUTSIDE RECORDS SUMMARY | 2024-05-13 17:38 | XMS_ITS | Clinical Summary ---
Author Organization [facility] Address [address] [place] [address] Care Team Providers Care Manager Electrical Name Role Phone Richard Upton MD Primary Care Provider + [phone] Allergies Active Allergy Reactions Criticality Noted Date Comments Empagliflozin Pancreatitis High 05/27/2023 Metformin Nausea,Vomiting High 02/11/2023 Semaglutide Pancreatitis High 05/27/2023 Medications OneTouch Verio test strips Use to test three times daily with meals and nightly. 100 strip 11 06/18/2023 3:38 PM EDT 4 Active OneTouch Delica Plus Lancet lancet 33 gauge Use to test three times daily with meals and nightly. 100 each 11 06/18/2023 3:38 PM EDT 4 Active OneTouch Verio Flex Start meter Use to test blood sugars as directed. 1 each 4 Active alcohol swabs (Alcohol Pads) pads, medicated Use up to 8 times daily with meter checks 200 each 11 06/18/2023 3:38 PM EDT 4 Active blood-glucose meter (OneTouch Verio Reflect Meter) misc 1 each 3 times a day. 1 each 06/18/2023 3:38 PM EDT 4 Active Freestyle lancets 28 gauge Test daily before all meals/snacks and once before bedtime. 3 each 4 Active atorvastatin (LIPITOR) 40 mg tablet Take 1 tablet (40 mg total) by mouth once a day. 90 tablet 3 4 Active omeprazole (PriLOSEC) 20 mg capsule Take 1 capsule (20 mg total) by mouth once a day. 30 capsule 5 4 05/16/19 25 Active BD Ultra-Fine Nusrat Pen Needle 4 mm x 32 gIndications:Ty pe 2 diabetes mellitus without complication, with long-term current use of insulin (CMS/HCC) ([facility]) Use 5 times daily. 150 each 5 4 Active FreeStyle Shon 3 Plus Sensor device Change sensor every 15 days. 6 each 3 4 Active insulin lispro 100 unit/mL insulin penIndications: Type 2 diabetes mellitus without complication, with long-term current use of insulin (CMS/HCC) ([facility]) Inject 10-26 Units under the skin 3 times a day before meals. And 2- 6 units for nighttime snack. 30 mL 3 4 07/30/19 25 Active insulin glargine U-300 conc (Toujeo SoloStar U-300 Insulin) 300 unit/mL (1.5 mL) insulin penIndications: Type 2 diabetes mellitus with hyperglycemia, with long-term current use of insulin ([facility]) Inject 60 Units under the skin in the morning. Increase by 2 units every 3 days until fasting am is <130. MDD80 20 mL 11 5 Active Active Problems Problem Noted Date Diagnosed Date Dunn's neuroma of both feet 05/05/2024 Assessment & Plan (05/05/2024 9:48 AM EST): Orders: Ambulatory referral to Podiatry; Future Sinus tachycardia 05/25/2023 Assessment & Plan (06/17/2023 [...] extremity duplex Increased anion gap metabolic acidosis 4 Necrotizing pancreatitis 05/24/2023 Assessment & Plan (05/05/2024 9:48 AM EST): Orders: Comprehensive metabolic panel; Future Assessment & Plan (06/17/2023 8:12 AM EDT): [...] well managed with infrequent use of dilaudid GAS REGULATOR REPAIRER. With resuscitation he has reversed hemoconcentration, BUN [...] well managed with infrequent use of dilaudid GAS REGULATOR REPAIRER. With resuscitation he has reversed hemoconcentration, BUN [...] well managed with infrequent use of dilaudid GAS REGULATOR REPAIRER. With resuscitation he has reversed hemoconcentration, BUN [...] well managed with infrequent use of dilaudid GAS REGULATOR REPAIRER. With resuscitation he has reversed hemoconcentration, BUN [...] well managed with infrequent use of dilaudid GAS REGULATOR REPAIRER. With resuscitation he has reversed hemoconcentration, BUN [...] well managed with infrequent use of dilaudid GAS REGULATOR REPAIRER. With resuscitation he has reversed hemoconcentration, BUN [...] off necrosis/pseudocyst. Pancreatitis, unspecified pancreatitis type 05/08 Low back pain 12/29/2017 Assessment & Plan (05/30/2023 10:37 AM EDT): Myalgia 10/28/2016 Back muscle spasm 04/04/2015 Arthralgia of multiple joints 04/07/2012 Assessment & [...] use of insulin 01/31/2012 Assessment & Plan (05/05/2024 9:48 AM EST): Orders: Ambulatory referral to Podiatry; Future Assessment & Plan (06/17/2023 8:17 AM EDT): [...] & Plan (05/30/2023 1:35 PM EDT): Resolved. Abdominal pain 05/25/2023 05/05/2024 VENICE (acute kidney injury) 05/25/2023 Leukocytosis 05/25/2023 [...] pain, right 12/29/2017 9 Healthcare maintenance 12/29/201708/22 Cigarette nicotine dependenc e without complication 12/29/2017 05/05/2024 Folliculitis 12/29/2017 02/05/2019 Adjustment disorder with anxiety 02/03/2015 05/05/2024 Stress due to illness of family member 01/27/2015 05/05/2024 Obesity 07/14/2009 01/08/2021 Encounters Date Type Department Care Team Description 05/05/2024 9:00 AM EST Office Visit [facility] [address] [place] [phone] Richard Upton MD Type 2 diabetes mellitus with hyperglycemia, with long-term current use of insulin (HCC) (Primary Dx); Dunn's neuroma of both feet; Necrotizing pancreatitis; Healthcare maintenance 04/08/2024 myChart Message [facility] Diabetes Education [address] [place] [phone] Mychart, Generic [facility] 04/05/2024 8:30 AM EST Evaluation [facility] [address] [place] [phone] Seda Mcdaniel RN, CDE Type 2 diabetes mellitus without complication, with long-term current use of insulin (CMS/HCC) (HCC) 04/05/2024 Refill [facility] [address] [place] [phone] Quality Control Analyst: Prema Baumann, AUCTION CLERK Type 2 diabetes mellitus with hyperglycemia, with long-term current use of insulin (HCC) (Primary Dx) 03/22/2024 Telephone [facility] [address] [place] [phone] Quality Control Analyst: Prema Baumann NP 03/18/2024 myChart Message [facility] [address] [place] [phone] Quality Control Analyst: Prema Baumann NP insulin 03/08/2024 8:00 AM EST Office Visit [facility] [address] [place] [phone] Quality Control Analyst: Prema Baumann, AUCTION CLERK Type 2 diabetes mellitus without complication, with long-term current use of insulin (CMS/HCC) (HCC) (Primary Dx); Hyperlipidemia, unspecified hyperlipidemia type 03/08/2024 Telephone [facility] [address] [place] [address] Quality Control Analyst: Prema Baumann, AUCTION CLERK Med Refill 02/26/2024 Telephone [facility] [address] [place] [address] Quality Control Analyst: Annalee Napoles, DO 02/25/2024 Patient Outreach [facility]CI [address] [address] Darlene Fuentes from Last 3 Months Family History Medical History Relation Name Comments Diabetes Father Breast cancer Mother x2 Multiple sclerosis Mother Other Other Family history of Living Arrangements: Father: DM2 (dx 60s) Mother: Breast cancer x 2, MS, cervical cancer (lives in [place]) 1 Sister: in [place], [employer] No other CAD, cancer Diabetes Sister Relation Name Status Comments Father Alive Mother Other Sister Social History Tobacco Use Types Packs/Day Years Used Date Smoking Tobacco: Former Cigarettes 0.5 20 2 001 - 2020 Smokeless Tobacco: Never Tobacco Cessation:Counseling Given: Yes Alcohol Use Standard Drinks/Week Comments Not Currently 0 (1 standard drink = 0.6 oz pur e alcohol) [facility] Utilities Answer Date Recorded In the [...] Sign Reading Time Taken Comments Blood Pressure 125/76 05/05/2024 8:47 AM EST Pulse 114 05/05/2024 8:47 AM EST Temperature 36.1 ??C (97 ??F) 11/17/2023 10:06 AM EDT Respiratory Rate 18 05/05/2024 8:47 AM EST Oxygen Saturation 96% 10/07/2023 9:14 AM EDT Inhaled Oxygen Concentration - - Weight 95.3 kg (210 lb) 05/05/2024 8:47 AM EST Height 165.1 cm (5' 5 ) 05/05/2024 8:47 AM EST Body Mass Index 34.95 05/05/2024 8:47 AM EST Plan of Treatment Upcoming Encounters Date Type Department Care Team (Late st Contact Info) Description 07/09/2024 8:30 AM EDT Office Visit [facility] Building Diabetes Clinic [address] [place] [address] Quality Control Analyst: Prema Baumann, AUCTION CLERK [address] [place] [phone] Scheduled Procedures Name Priority Associated Diagnoses Date/Ti me COLONOSCOPY SCREENING, LOW R ISK WITH POSSIBLE MODERATE SEDATION Healthcare maintenance Health Maintenance Due Date Last Done Comments Cologuard 1973 Colon Cancer Screening 1973 Colonoscopy 1973 FOBT / Fit Test 1973 Sigmoidoscopy 1973 Ophthalmology Exam 09/01/1983 Hepatitis B Vaccines (1 of 3 - 19+ 3-dose series) 1992 Pneumococcal Vaccine: 50+ Years (1 of 2 - PCV) 1992 DTaP,Tdap,and Td Vaccines (1 - Tdap) 09/01/1995 Urine Microalbumin 06/09/2022 06/09/2021, 1 04/07/2018, 12/29/2017, Additional history exists Zoster Vaccines (1 of 2) 09/01/2023 COVID-19 Vaccine (3 - 2024-25 season) 2023 08/22/2020, 07/28/2020 Influenza Vaccine (#1) 2023 Alcohol/Substance Use Screening 03/10/2024 [employer] Annual Screening 03/10/2024 Basic Metabolic Panel 08/06/2024 08/07/2023 , 07/24/2023, 06/23/2023, Additional history exists Hemoglobin A1C 10/07/2024 04/09/2024, 02/09, 02/13/2024, Additional history exists Depression Screening and Follow-Up 05/05/2025 05/05/2024 HIV Screening 05/05/2025 Postponed from 1973 (Patient Declined) Hepatitis C Screening 05/08/2025 Postpo grisel from 1973 (Patient Declined) RSV Vaccine (60+ years old and patients) (1 - 1-dose 75+ series) 2048 Abdominal Aortic Aneurysm (AAA) Screening Completed 08/07/2023, 07/25/2023, 06/25/2023, Additional history exists Procedures * Due to [place] [employer] law, this organization might not be sharing [...] to Health Maintenance Results * Due to [place] [employer] law, this organization might not be sharing negative HIV tests. * (ABNORMAL) POCT Glycosylated Hemoglobin (HGB A1C), interfaced (03/08/2024 8:01 AM EST) Hemoglobin A1C, POCT 8.3(H) <=5.6 % 03/08/2024 8:10 AM EST [facility] Comment: A1C Recommendation for Non- Adults with Diabetes: <7.0% ADA 2011 Standards of Medical Care in Diabetes Blood 03/08/2024 8:01 AM EST 03/08/2024 8:10 AM EST us Prema Heller AUCTION CLERK LAB POCT ORDERABLES - DEVICE F inal Result Performing Organization Address City/[facility]/ZIP Co de Phone Number [facility] [address] [place] [address], [place] * (ABNORMAL) POCT Glucose, interfaced (03/08/2024 8:00 AM EST) Glucose, POCT 181(H) 70 - 99 mg/dL 03/08/2024 8:12 AM EST [facility] Comment: The area sales manager has not determined the efficacy of this test in Critically ill patients. ??[facility] defines Critically ill patients for the [...] DEVICE F inal Result Performing Organization Address City/[facility]/ZIP Co de Phone Number [facility] [address] [place] [address], [place] * CT Abdomen Pelvis with Contrast [...] obtain the completed interpretation. ? Workstation ID: [id number] Up-to-date CT equipment and radiation dose reduction [...] changes in the spine. Resulting Agency Comment [id number] Procedure Note Lily Ibarra MD - 08/07/2023 [...] is difficult, however overall appear stable since 5/17/2024and decreased and more mature since 06/25/2023 CT. If this radiology report contains a blank impression section, it is anincomplete radiology report. Please contact the interpreting radiologistor applicable radiology division as soon as possible to obtain thecompleted interpretation. Workstation ID: [id number] Up-to-date CT equipment and radiation dose reduction techniques wereemployed. CTDIvol: 14.4 mGy. DLP: 721 mGy-cm. us Dm Cobos MD IMG CT PROCEDURES Final R esult * (ABNORMAL) Comprehensive Metabolic Panel (08/07/2023 6:28 PM EDT) NA 140 135 - 145 mmol/L 08/07/2023 7:12 PM EDT [facility] K 4.6 3.5 - 5.3 mmol/L 08/07/2023 7:12 PM EDT [facility] Cl 106 97 - 110 mmol/L 08/07/2023 7:12 PM EDT [facility] CO2 29 24 - 32 mmol/L 08/07/2023 7:12 PM EDT [facility] Anion Gap 5 5 - 15 08/07/2023 7:12 PM EDT [facility] Glucose 171(H) 70 - 99 mg/dL 08/07/2023 7:12 PM EDT [facility] Creatinine 0.79 0.60 - 1.30 mg/dL 08/07/2023 7:12 PM EDT [facility] Calcium 9.1 8.7 - 10.7 mg/dL 08/07/2023 7:12 PM EDT [facility] Total Protein 6.9 6.0 - 8.0 g/dL 08/07/2023 7:12 PM EDT [facility] Albumin 4.1 3.5 - 4.8 g/dL 08/07/2023 7:12 PM EDT [facility] Bilirubin, Total 0.4 0.3 - 1.2 mg/dL 08/07/2023 7:12 PM EDT [facility] Alkaline Phosphatase 85 30 - 115 U/L 08/07/2023 7:12 PM EDT [facility] AST 14 10 - 40 U/L 08/07/2023 7:12 PM EDT [facility] ALT 13 10 - 40 U/L 08/07/2023 7:12 PM EDT [facility] BUN 13 7 - 23 mg/dL 08/07/2023 7:12 PM EDT [facility] eGFR >90 >=60 mL/min/1. 73m2 08/07/2023 7:12 PM EDT [facility] Comment:The estimated glomer [...] MD LAB BLOOD ORDERABLES Valeria lockwood Result [facility] [address] [place] [address], * Microalbumin / creatinine, urine ratio (Lab Collect) (06/09/2021 9:09 AM EDT) Microalbumin, Urine 1.0 mg/dL 06/09/2021 1:27 PM EDT [facility] Creatinine, Urine 140 22 - 328 mg/dL 06/09/2021 1:27 PM EDT [facility] Microalb/Creat Ratio, Random Urine 7.1 <30.0 mcg/mgCr 06/09/2021 1:27 PM EDT [facility] Comment: Microalbumin Reference Range: Normal ? <30 mcg/mg Creatinine Microalbuminuria ? 30-300 mcg/mg Creatinine Clinical Albuminuria >300 mcg/mg Creatinine Reference: ADA Guideline. Diabetes Care. 2004;27 (suppl 1) Urine Urine specimen collection, clean catch / Unknown Non-Blood Collection / Unknown 06/09/2021 9:09 AM EDT 06/09/2021 9:09 AM EDT Jose Oseguera AUCTION CLERK LAB URINE ORDERABLES Final R esult [facility] [employer] [address] [place] [address], from Last 3 Months or Most Recently Relevant to Health Maintenance Insurance [facility] [employer]ENS[employer] [place] Advance Directives Documents on File Type Date Recorded Patient Digital Program Manager Expl anation Health Care Proxy 05/25/2023 1:17 PM 05-24 Health Care Proxy 12/23/2008 12:00 AM * Full Code (Latest Code Status on File) Date Activated Date Inactivated Comments 05/24/2023 11:55 PM 06/18/2023 6:05 PM Healthcare Agents on File Name Relationship Healthcare Agent Relationshi p Communication Isadora Toth Spouse Health Care Agent Care Teams Manager Electrical Relationship Specialty Start Date End Date Richard Upton MD [address] [facility] [place] [address] PCP - General Family Medicine 06/25/23
--- OUTSIDE RECORDS SUMMARY | 2024-05-13 17:38 | XMS_ITS | Encounter Summary ---
Author Organization [facility] Address [address] [place], [place] [id number] Care Team Providers Care Electrician Helper Name Role Phone Richard Upton MD Primary Care Provider [phone] Encounter Details Date Type Department Care Team (Late st Contact Info) Description 07/24/2023 Orders Only [facility] Interventional Radiology [address] [place] [phone] Jesse Goodman MD [address] [place] [phone] Social History Tobacco Use Types Packs/Day Years [...] Description 07/09/2024 8:30 AM EDT Office Visit [facility] Building Diabetes Clinic [address] [place] [address] Information Technology Security Analyst: Prema Baumann, ROLLER INSPECTOR [address] [place] [address] [phone] Scheduled Procedures Name Priority Associated Diagnoses Date/Ti me COLONOSCOPY SCREENING, LOW R ISK WITH POSSIBLE MODERATE SEDATION Healthcare maintenance documented as of this encounter Visit Diagnoses Not on filedocumented in this encounter Care Teams Electrician Helper Relationship Specialty Start Date End Date Richard Upton MD [address] [place] [address] PCP - General Family Medicine 06/25/23 documented as of this encounter
--- OUTSIDE RECORDS SUMMARY | 2024-05-13 17:38 | XMS_ITS | Encounter Summary ---
Author Organization [facility] Address [address] [place] [address] Care Team Providers Care Scientific Systems Analyst Name Role Phone Richard Upton MD Primary Care Provider [phone] Encounter Details Date Type Department Care Team (Late st Contact Info) Description 07/15/2023 myChart Message [facility] Financial Clearance Department [address] [place] [phone] Mychart, Generic Provider [address] [place], [place] [phone] Medication Authorization Approval Social History Tobacco Use [...] Description 07/09/2024 8:30 AM EDT Office Visit [facility] [address] [place] [address] Clinical Advisor: Prema Baumann, ACTIVITY COORDINATOR [address] [place] [address] [phone] Scheduled Procedures Name Priority Associated Diagnoses Date/Ti me COLONOSCOPY SCREENING, LOW R ISK WITH POSSIBLE MODERATE SEDATION Healthcare maintenance documented as of this encounter Visit Diagnoses Not on filedocumented in this encounter Care Teams Scientific Systems Analyst Relationship Specialty Start Date End Date Richard Upton MD [address] [place] [address] PCP - General Family Medicine 06/25/23 documented as of this encounter
--- OUTSIDE RECORDS SUMMARY | 2024-05-13 17:38 | XMS_ITS | Referral Summary ---
Author Organization [facility] Address [address] [place] [address] Care Team Providers Care Newspaper Journalist Name Role Phone Richard Upton MD Primary Care Provider Encounters Date Type Department Care Team Description 05/05/2024 9:00 AM EST Office Visit [facility] Primary Care [address] [place] [phone] Richard Upton MD Type 2 diabetes mellitus with hyperglycemia, with long-term current use of insulin (HCC) (Primary Dx); Dunn's neuroma of both feet; Necrotizing pancreatitis; Healthcare maintenance 04/08/2024 myChart Message [facility] [address] [place] [phone] Mychart, Generic Provider [facility] 04/05/2024 Refill [facility] [address] [place] [phone] Clinical Assessment Manager: Prema Baumann, LABOR DELIVERY SPECIALIST Type 2 diabetes mellitus with hyperglycemia, with long-term current use of insulin (HCC) (Primary Dx) 04/05/2024 8:30 AM EST Evaluation [facility] [address] [place] [address] [phone] Seda Mcdaniel RN, CDE Type 2 diabetes mellitus without complication, with long-term current use of insulin ([facility]/HCC) (HCC) 03/22/2024 Telephone [facility] [address] [place] [phone] Clinical Assessment Manager: Prema Baumann LABOR DELIVERY SPECIALIST 03/18/2024 myChart Message [facility] [address] [place] [address] Clinical Assessment Manager: Prema Baumann LABOR DELIVERY SPECIALIST insulin 03/08/2024 Telephone [facility] [address] [place] [phone] Clinical Assessment Manager: Prema Baumann LABOR DELIVERY SPECIALIST Med Refill 03/08/2024 8:00 AM EST Office Visit [facility] [address] [address] Clinical Assessment Manager: Prema Baumann, LABOR DELIVERY SPECIALIST Type 2 diabetes mellitus without complication, with long-term current use of insulin ([facility]) ([facility]) (Primary Dx); Hyperlipidemia, unspecified hyperlipidemia type 02/26/2024 Telephone [facility]ology [facility] [address] [place] [phone] Clinical Assessment Manager: Annalee Napoles, 02/25/2024 Patient Outreach [facility] [address] [address] Darlene Fuentes from Last 3 Months Allergies [...] with long-term current use of insulin (CMS/HCC) ([facility]) Use 5 times daily. 150 each 5 4 Active FreeStyle Shon 3 Plus Sensor device Change sensor every 15 days. 6 each 3 4 Active insulin lispro 100 unit/mL insulin penIndications: Type 2 diabetes mellitus without complication, with long-term current use of insulin (CMS/HCC) ([facility]) Inject 10-26 Units under the skin 3 times a day before meals. And 2- 6 units for nighttime snack. 30 mL 3 4 07/30/19 25 Active insulin glargine U-300 conc (Toujeo SoloStar U-300 Insulin) 300 unit/mL (1.5 mL) insulin penIndications: Type 2 diabetes mellitus with hyperglycemia, with long-term current use of insulin ([facility]) Inject 60 Units under the [...] well managed with infrequent use of dilaudid INSERT CUTTER. With resuscitation he has reversed hemoconcentration, BUN [...] well managed with infrequent use of dilaudid INSERT CUTTER. With resuscitation he has reversed hemoconcentration, BUN [...] well managed with infrequent use of dilaudid INSERT CUTTER. With resuscitation he has reversed hemoconcentration, BUN [...] well managed with infrequent use of dilaudid INSERT CUTTER. With resuscitation he has reversed hemoconcentration, BUN [...] well managed with infrequent use of dilaudid INSERT CUTTER. With resuscitation he has reversed hemoconcentration, BUN [...] well managed with infrequent use of dilaudid INSERT CUTTER. With resuscitation he has reversed hemoconcentration, BUN [...] to monitor. Type 2 diabetes mellitus, wi long-term current use of insulin 01/31/2012 Assessment [...] AM, 15U nightly -Lispro 14U with meals -CARRI -Will continue to follow recommendations of diabetes [...] family member 01/27/2015 05/05/2024 Obesity 07/14/2009 01/08/2021 Social History Tobacco Use Types Packs/Day Years Used Date Smoking Tobacco: Former Cigarettes 0.5 20 2 001 - 2020 Smokeless Tobacco: Never Tobacco Cessation:Counseling Given: Yes Alcohol Use Standard Drinks/Week Comments Not Currently 0 (1 standard drink = 0.6 oz pur e alcohol) [facility] Utilities Answer Date Recorded In [...] Description 07/09/2024 8:30 AM EDT Office Visit [facility] [address] [place] [phone] Clinical Assessment Manager: Prema Baumann, LABOR DELIVERY SPECIALIST [address] [place] [address] Scheduled Procedures Name Priority Associated Diagnoses Date/Ti me COLONOSCOPY SCREENING, LOW R ISK WITH POSSIBLE MODERATE SEDATION Healthcare maintenance Procedures * Due to [place] [employer] law, this organization might not be sharing [...] to Health Maintenance Results * Due to [place] [employer] law, this organization might not be sharing negative HIV tests. * (ABNORMAL) POCT Glycosylated Hemoglobin (HGB A1C), interfaced (03/08/2024 8:01 AM EST) Hemoglobin A1C, POCT 8.3(H) <=5.6 % 03/08/2024 8:10 AM EST [facility] Comment: A1C Recommendation for Non- Adults with Diabetes: <7.0% ADA 2011 Standards of Medical Care in Diabetes Blood 03/08/2024 8:01 AM EST 03/08/2024 8:10 AM EST us Prema Heller NP LAB POCT ORDERABLES - DEVICE F inal Result Performing Organization Address [facility] Co de Phone Number [facility] [address] [place] [address], [place] * (ABNORMAL) POCT Glucose, interfaced (03/08/2024 8:00 AM EST) Glucose, POCT 181(H) 70 - 99 mg/dL 03/08/2024 8:12 AM EST [facility] Comment: The clinical pharmacy manager has not determined the efficacy of this test in Critically ill patients. ??[facility] defines Critically ill patients for the [...] DEVICE F inal Result Performing Organization Address [facility] Co de Phone Number [facility] [address] [place] [address], [place] * CT Abdomen Pelvis with Contrast [...] obtain the completed interpretation. ? Workstation ID: [id number] Up-to-date CT equipment and radiation dose reduction [...] changes in the spine. Resulting Agency Comment [id number] Procedure Note Lily Ibarra MD - 08/07/2023 [...] possible to obtain thecompleted interpretation. Workstation ID: [id number] Up-to-date CT equipment and radiation dose reduction techniques wereemployed. CTDIvol: 14.4 mGy. DLP: 721 mGy-cm. us Dm Cobos MD IMG CT PROCEDURES Final R esult * (ABNORMAL) Comprehensive Metabolic Panel (08/07/2023 6:28 PM EDT) NA 140 135 - 145 mmol/L 08/07/2023 7:12 PM EDT [facility] K 4.6 3.5 - 5.3 mmol/L 08/07/2023 7:12 PM EDT [facility] Cl 106 97 - 110 mmol/L 08/07/2023 7:12 PM EDT [facility] CO2 29 24 - 32 mmol/L 08/07/2023 7:12 PM EDT [facility] Anion Gap 5 5 - 15 08/07/2023 7:12 PM EDT [facility] Glucose 171(H) 70 - 99 mg/dL 08/07/2023 7:12 PM EDT [facility] Creatinine 0.79 0.60 - 1.30 mg/dL 08/07/2023 7:12 PM EDT [facility] Calcium 9.1 8.7 - 10.7 mg/dL 08/07/2023 7:12 PM EDT [facility] Total Protein 6.9 6.0 - 8.0 g/dL 08/07/2023 7:12 PM EDT [facility] Albumin 4.1 3.5 - 4.8 g/dL 08/07/2023 7:12 PM EDT [facility] Bilirubin, Total 0.4 0.3 - 1.2 mg/dL 08/07/2023 7:12 PM EDT [facility] Alkaline Phosphatase 85 30 - 115 U/L 08/07/2023 7:12 PM EDT [facility] AST 14 10 - 40 U/L 08/07/2023 7:12 PM EDT [facility] ALT 13 10 - 40 U/L 08/07/2023 7:12 PM EDT [facility] BUN 13 7 - 23 mg/dL 08/07/2023 7:12 PM EDT [facility] eGFR >90 >=60 mL/min/1. 73m2 08/07/2023 7:12 PM EDT [facility] Comment:The estimated glomer [...] MD LAB BLOOD ORDERABLES Valeria lockwood Result [facility] [address] [place] [address], * Microalbumin / creatinine, urine ratio (Lab Collect) (06/09/2021 9:09 AM EDT) Microalbumin, Urine 1.0 mg/dL 06/09/2021 1:27 PM EDT [facility] Creatinine, Urine 140 22 - 328 mg/dL 06/09/2021 1:27 PM EDT [facility] Microalb/Creat Ratio, Random Urine 7.1 <30.0 mcg/mgCr 06/09/2021 1:27 PM EDT [facility] Comment: Microalbumin Reference Range: Normal ? <30 mcg/mg Creatinine Microalbuminuria ? 30-300 mcg/mg Creatinine Clinical Albuminuria >300 mcg/mg Creatinine Reference: ADA Guideline. Diabetes Care. 2004;27 (suppl 1) Urine Urine specimen collection, clean catch / Unknown Non-Blood Collection / Unknown 06/09/2021 9:09 AM EDT 06/09/2021 9:09 AM EDT us Jose Oseguera LABOR DELIVERY SPECIALIST LAB URINE ORDERABLES Final R esult [email or web address] [address] [place] [address], [place] from Last 3 Months or Most Recently Relevant to Health Maintenance Insurance [facility] [employer] Advance Directives Documents on File Type Date Recorded Patient Photogrammetric Compilation Specialist Expl anation Health Care Proxy 05/25/2023 1:17 PM 05-24 Health Care Proxy 12/23/2008 12:00 AM * Full Code (Latest Code Status on File) Date Activated Date Inactivated Comments 05/24/2023 11:55 PM 06/18/2023 6:05 PM Healthcare Agents on File Name Relationship Healthcare Agent Relationshi p Communication Isadora Toth Spouse Health Care Agent Care Teams Newspaper Journalist Relationship Specialty Start Date End Date Richard Upton MD [address] [facility] [address] PCP - General Family Medicine 06/25/23
--- OUTSIDE RECORDS SUMMARY | 2024-05-13 17:38 | XMS_ITS | Encounter Summary ---
Author Organization [facility] Address [address] [place] [address] Care Team Providers Care Clinical Safety Specialist Name Role Phone Richard Upton MD Primary Care Provider [phone] Reason for Referral * Consultation (Routine) - Pending Review Specialty Diagnoses / Procedures Referred By Bre maldonado Referred To Contact Podiatry Diagnoses Type 2 diabetes mellitus with hyperglycemia, with long-term current use of insulin (HCC) Dunn's neuroma of both feet Richard Upton MD [address] [place] [address] Phone: tel: fax: Humble Roper DPM [address] [place] [address] Phone: tel: fax: Referral ID Status Reason Start Date Expiration Date Visits Requested Visits Authorized [id number] Pending Review Specialty Services Required 05/05/2024 11/04/2025 6 6 Reason for Visit * Reason Comments Annual Exam Encounter Details Date Type Department Care Team (Late st Contact Info) Description 05/05/2024 9:00 AM EST Office Visit [facility] Primary Care [address] [place] [phone] Richard Upton MD [address] [place] [phone] Type 2 diabetes mellitus with hyperglycemia, with long-term current use of insulin (HCC) (Primary Dx); Dunn's neuroma of both feet; Necrotizing pancreatitis; Healthcare maintenance Social History Tobacco Use Types Packs/Day Years Used Date Smoking Tobacco: Former Cigarettes 0.5 20 2 - 2020 Smokeless Tobacco: Never Tobacco Cessation:Counseling Given: Yes Alcohol Use Standard Drinks/Week Comments Not Currently 0 (1 standard drink = 0.6 oz pur e alcohol) [facility] Utilities Answer Date Recorded In the past 12 months has th e [employer], gas, oil, or water [employer] threatened to shut off services in your [...] PM EST documented as of this encounter Last Filed Vital Signs Vital Sign Reading Time Taken Comments Blood Pressure 125/76 05/05/2024 8:47 AM EST Pulse 114 05/05/2024 8:47 AM EST Temperature - - Respiratory Rate 18 05/05/2024 8:47 AM EST Oxygen Saturation - - Inhaled Oxygen Concentration - - Weight 95.3 kg (210 lb) 05/05/2024 8:47 AM EST Height 165.1 cm (5' 5 ) 05/05/2024 8:47 AM EST Body Mass Index 34.95 05/05/2024 8:47 AM EST documented in this encounter Patient Instructions * Patient Instructions* Richard Upton MD - 05/05/2024 9:19 AM EST For bilateral foot pain, referral was placed to Dr. Humble Roper in [place] documented in this encounter Miscellaneous Notes * Assessment & Plan Note - Richard Upton MD - 05/05/2024 9:48 AM EST Associated Problem(s): Type 2 diabetes mellitus, with long-term current use of insulin (HCC) Orders: Ambulatory referral to Podiatry; Future * Assessment & Plan Note - Richard Upton MD - 05/05/2024 9:48 AM EST Associated Problem(s): Dunn's neuroma of both feet Orders: Ambulatory referral to Podiatry; Future * Assessment & Plan Note - Richard Upton MD - 05/05/2024 9:48 AM EST Associated Problem(s): Necrotizing pancreatitis Orders: Comprehensive metabolic panel; Future documented in this encounter Plan of Treatment Upcoming Encounters Date Type Department Care Team (Late st Contact Info) Description 07/09/2024 8:30 AM EDT Office Visit [facility] [address] [place] [address] [phone] Supervisor Shipfitters: Prema Baumann, SENIOR MOBILE DEVELOPER [address] [place] [address] Scheduled Orders Name Type Priority Associated Diagnoses Orde r Schedule Comprehensive metabolic panel Lab Routine Necrotizing pancreatitis Expected: 05/05/2024, Expires: 05/05/2025 Lipid panel Lab Routine Healthcare maintenance Expected: 05/05/2024, Expires: 05/05/2025 Scheduled Procedures Name Priority Associated Diagnoses Date/Ti me COLONOSCOPY SCREENING, LOW R ISK WITH POSSIBLE MODERATE SEDATION Healthcare maintenance Scheduled Referrals Name Type Priority Associated Diagnoses Order Schedule Ambulatory referral to Podiatry Outpatient Referral Routine Type 2 diabetes mellitus with hyperglycemia, with long-term current use of insulin (HCC) Dunn's neuroma of both feet Expected: 05/05/2024, Expires: 11/02/2024 documented as of this encounter Visit Diagnoses Diagnosis Type 2 diabetes mellitus with hyperglycemia, with long-term current use of insulin (HCC)- Primary Dunn's neuroma of both feet Necrotizing pancreatitis Acute pancreatitis Healthcare maintenance documented in this encounter Care Teams Clinical Safety Specialist Relationship Specialty Start Date End Date Richard Upton MD [address] [place] [phone] PCP - General Family Medicine 06/25/23 documented as of this encounter
--- OUTSIDE RECORDS SUMMARY | 2024-05-13 17:39 | XMS_ITS | Encounter Summary ---
Author Organization [facility] Address [address] [place] [address] Care Team Providers Care Pipelines Laborer Name Role Phone Richard Upton MD Primary Care Provider [phone] Encounter Details Date Type Department Care Team (Late st Contact Info) Description 11/03/2023 Orders Only [facility] Building [address], 5[address] [place] [address] Eleazar Prince MD [address] [place] [phone] Social History Tobacco Use Types Packs/Day Years Used Date Smoking Tobacco: Former Cigarettes 0.5 20 2 001 - 2020 Smokeless Tobacco: Never Alcohol Use Standard Drinks/Week Comments Not Currently 0 (1 standard drink = 0.6 oz pur e alcohol) [facility] Utilities Answer Date Recorded In the past [...] Description 07/09/2024 8:30 AM EDT Office Visit [facility] Building Diabetes Clinic [address] [place] [address] Procedure Analyst: Prema Baumann, DELICATE FABRICS PRESSER [address] [place], [place] [phone] Scheduled Procedures Name Priority Associated Diagnoses Date/Ti me COLONOSCOPY SCREENING, LOW R ISK WITH POSSIBLE MODERATE SEDATION Healthcare maintenance documented as of this encounter Visit Diagnoses Not on filedocumented in this encounter Care Teams Pipelines Laborer Relationship Specialty Start Date End Date Richard Upton MD [address] [place] [address] PCP - General Family Medicine 06/25/23 documented as of this encounter
--- OUTSIDE RECORDS SUMMARY | 2024-05-13 17:39 | XMS_ITS | Encounter Summary ---
Author Organization [facility] Address [address] [place], [place] [phone] Care Team Providers Care Road Builder Name Role Phone Richard Upton MD Primary Care Provider [phone] Encounter Details Date Type Department Care Team (Late st Contact Info) Description 06/19/2023 Orders Only [facility] Interventional Radiology [address] [place] [address] Alvaro Kumar MD [address] [place] [address] Social History Tobacco Use Types Packs/Day Years [...] Description 07/09/2024 8:30 AM EDT Office Visit [facility] ACC Building Diabetes Clinic [address] [place] [phone] Dna Sequencing Associate: Prema Baumann, LEAD WEB APPLICATION DEVELOPER [address] [place] [phone] Scheduled Procedures Name Priority Associated Diagnoses Date/Ti me COLONOSCOPY SCREENING, LOW R ISK WITH POSSIBLE MODERATE SEDATION Healthcare maintenance documented as of this encounter Visit Diagnoses Not on filedocumented in this encounter Care Teams Road Builder Relationship Specialty Start Date End Date Richard Upton MD [address] [place] [address] PCP - General Family Medicine 06/25/23 documented as of this encounter
--- OUTSIDE RECORDS SUMMARY | 2024-05-13 17:39 | XMS_ITS | Encounter Summary ---
Author Organization [facility] Address [address] [place] [address] Care Team Providers Care Planning Assistant Name Role Phone Richard Upton MD Primary Care Provider [phone] Reason for Visit * Reason Onset Date Comments Don't Cancel Physical 12/04/2020 Encounter Details Date Type Department Care Team (Late st Contact Info) Description 12/04/2020 Telephone [facility] Central Scheduling Department [address] [place] [phone] Telephone Intake, Staff Don't Cancel Physical Social [...] this appt. Collin can be reached at [phone]. documented in this encounter Plan of Treatment Upcoming Encounters Date Type Department Care Team (Late st Contact Info) Description 07/09/2024 8:30 AM EDT Office Visit [facility] Diabetes Clinic [address] [place] [address] Stone Trimmer: Prema Baumann, SOFTWARE ASSET MANAGEMENT ANALYST [address] [place] [address] Scheduled Procedures Name Priority Associated Diagnoses Date/Ti me COLONOSCOPY SCREENING, LOW R ISK WITH POSSIBLE MODERATE SEDATION Healthcare maintenance documented as of this encounter Visit Diagnoses Not on filedocumented in this encounter Additional Health Concerns Infection Onset Date Last Indicated Resolved Time R/O C.diff 06/11/2023 06/11/2023 06/12/2023 9:09 AM EDT documented as of this encounter Care Teams Planning Assistant Relationship Specialty Start Date End Date Richard Upton MD [address] [place] [address] PCP - General Family Medicine 06/25/23 documented as of this encounter
--- OUTSIDE RECORDS SUMMARY | 2024-05-13 17:39 | XMS_ITS | Encounter Summary ---
Author Organization [facility] Address [address] [place], [place] [phone] Care Team Providers Care Educational Specialist Name Role Phone Richard Upton MD Primary Care Provider [phone] Encounter Details Date Type Department Care Team (Late st Contact Info) Description 06/23/2023 Orders Only [facility] Interventional Radiology [address] [place] [address] Oswaldo Gonzalez MD [address] [place] [address] Social History Tobacco Use Types Packs/Day Years [...] Description 07/09/2024 8:30 AM EDT Office Visit [facility] ACC Building Diabetes Clinic [address] [place] [address] Data Capture Clerk: Prema Baumann, SHEET METAL DUCT WORKER SUPERVISOR [address] [place] [address] Scheduled Procedures Name Priority Associated Diagnoses Date/Ti me COLONOSCOPY SCREENING, LOW R ISK WITH POSSIBLE MODERATE SEDATION Healthcare maintenance documented as of this encounter Visit Diagnoses Not on filedocumented in this encounter Care Teams Educational Specialist Relationship Specialty Start Date End Date Richard Upton MD [address] [place] [address] PCP - General Family Medicine 06/25/23 documented as of this encounter
== END 2024-05-13 14:23 | disposition home or self-care (01) ==
LOC: HO.NEURO 14:22
PROVIDERS: Visit Provider Neurological Surgery
DX: R20.0 Anesthesia of skin (principal); R20.2 Paresthesia of skin
CPT/HCPCS: 95886; 95911

== ENCOUNTER → 2024-05-13 14:25 | Outpatient (BNV) | payer OTHER, SELFPAY | PROVIDERS: Visit Provider Physical Medicine & Rehabilitation | DX: E11.40 Type 2 diabetes mellitus with diabetic neuropathy, unspecified (principal) | CPT/HCPCS: 95886; 95911 ==

== ENCOUNTER 2024-05-13 15:18 | Outpatient (REF) | payer OTHER, SELFPAY ==
--- OUTSIDE RECORDS SUMMARY | 2024-05-13 18:52 | XMS_ITS | Encounter Summary ---
Author Organization [facility] Address [address] [place] [address] Care Team Providers Care Conveyor Tender Concrete Mixing Plant Name Role Phone Richard Upton MD Primary Care Provider [phone] Encounter Details Date Type Department Care Team (Late st Contact Info) Description 04/08/2024 [employer] [facility] Message [facility] Diabetes Education [address] [place] [phone] Mychart, Generic Provider [facility] [place] [phone] [facility] Social History Tobacco Use [...] Description 07/09/2024 8:30 AM EDT Office Visit [facility] Building Diabetes Clinic [address] [place] [address] Leak Patcher: Prema Baumann, URBAN DESIGN CONSULTANT [address] [place], [place] [phone] Scheduled Procedures Name Priority Associated Diagnoses Date/Ti me COLONOSCOPY SCREENING, LOW R ISK WITH POSSIBLE MODERATE SEDATION Healthcare maintenance documented as of this encounter Visit Diagnoses Not on filedocumented in this encounter Care Teams Conveyor Tender Concrete Mixing Plant Relationship Specialty Start Date End Date Richard Upton MD [address] [place] [address] PCP - General Family Medicine 06/25/23 documented as of this encounter
--- OUTSIDE RECORDS SUMMARY | 2024-05-13 18:52 | XMS_ITS | Encounter Summary ---
Author Organization [facility] Address [address] [place] [address] Care Team Providers Care Algebraist Name Role Phone Richard Upton MD Primary Care Provider [phone] Reason for Referral * Consultation (Routine) - Pending Review Specialty Diagnoses / Procedures Referred By Bre maldonado Referred To Contact Podiatry Diagnoses Type 2 diabetes mellitus with hyperglycemia, with long-term current use of insulin (HCC) Dunn's neuroma of both feet Richard Upton MD [address] [place] [address] Phone: tel: fax: Humble Roper DPM [address] [place] [address] Phone: tel: fax: Referral ID Status Reason Start Date Expiration Date Visits Requested Visits Authorized [id number] Pending Review Specialty Services Required 05/05/2024 11/04/2025 6 6 Reason for Visit * Reason Comments Annual Exam Encounter Details Date Type Department Care Team (Late st Contact Info) Description 05/05/2024 9:00 AM EST Office Visit [facility] Primary Care [address] [place] [phone] Richard Upton MD [address] [place] [phone] Type 2 diabetes mellitus with hyperglycemia, with [...] drink = 0.6 oz pur e alcohol) [facility] Utilities Answer Date Recorded In the past 12 months has th e [employer], gas, oil, or water [employer] threatened to shut off services in your [...] was placed to Dr. Humble Roper in [place] documented in this encounter Miscellaneous Notes * [...] Description 07/09/2024 8:30 AM EDT Office Visit [facility] Diabetes Clinic [address] [place] [address] [phone] Marble Cleaner: Prema Baumann, APPLE PRESS OPERATOR [address] [place] [address] Scheduled Orders Name Type Priority Associated Diagnoses [...] maintenance documented in this encounter Care Teams Algebraist Relationship Specialty Start Date End Date Richard Upton MD [address] [place] [address] PCP - General Family Medicine 06/25/23 documented as of this encounter
--- OUTSIDE RECORDS SUMMARY | 2024-05-13 18:52 | XMS_ITS | Referral Summary ---
Author Organization [facility] Address [address] [place] [address] Care Team Providers Care Probate Clerk Name Role Phone Richard Upton MD Primary Care Provider [phone] Encounters Date Type Department Care Team Description 05/05/2024 9:00 AM EST Office Visit [facility] [address] [place] [address] Richard Upton MD Type 2 diabetes mellitus with hyperglycemia, with long-term current use of insulin (HCC) (Primary Dx); Dunn's neuroma of both feet; Necrotizing pancreatitis; Healthcare maintenance 04/08/2024 myChart Message [facility] [address] [place] [phone] Mychart, Generic Provider [facility] 04/05/2024 Refill [facility] [address] [place] [phone] Extended Insurance Clerk: Prema Baumann, PHARMACIST ASSISTANT Type 2 diabetes mellitus with hyperglycemia, with long-term current use of insulin (HCC) (Primary Dx) 04/05/2024 8:30 AM EST Evaluation [facility] [address] [place] [phone] Seda Mcdaniel RN, CDE Type 2 diabetes mellitus without complication, with long-term current use of insulin ([facility]/HCC) (HCC) 03/22/2024 Telephone [facility] [address] [place] [phone] Extended Insurance Clerk: Prema Baumann PHARMACIST ASSISTANT 03/18/2024 myChart Message [facility] [address] [place] [phone] Extended Insurance Clerk: Prema Baumann PHARMACIST ASSISTANT insulin 03/08/2024 Telephone [facility] [address] [place] [phone] Extended Insurance Clerk: Prema Baumann PHARMACIST ASSISTANT Med Refill 03/08/2024 8:00 AM EST Office Visit [facility] [address] [address] Extended Insurance Clerk: Prema Baumann, PHARMACIST ASSISTANT Type 2 diabetes mellitus without complication, with long-term current use of insulin ([facility]) ([facility]) (Primary Dx); Hyperlipidemia, unspecified hyperlipidemia type 02/26/2024 Telephone [facility] [address] [place] [phone] Extended Insurance Clerk: Annalee Napoles, 02/25/2024 Patient Outreach [facility] OCI [address] [address] Darlene Fuentes from Last 3 Months Allergies [...] well managed with infrequent use of dilaudid OCCUPATIONAL THERAPY DIRECTOR. With resuscitation he has reversed hemoconcentration, BUN [...] well managed with infrequent use of dilaudid OCCUPATIONAL THERAPY DIRECTOR. With resuscitation he has reversed hemoconcentration, BUN [...] well managed with infrequent use of dilaudid OCCUPATIONAL THERAPY DIRECTOR. With resuscitation he has reversed hemoconcentration, BUN [...] well managed with infrequent use of dilaudid OCCUPATIONAL THERAPY DIRECTOR. With resuscitation he has reversed hemoconcentration, BUN [...] well managed with infrequent use of dilaudid OCCUPATIONAL THERAPY DIRECTOR. With resuscitation he has reversed hemoconcentration, BUN [...] well managed with infrequent use of dilaudid OCCUPATIONAL THERAPY DIRECTOR. With resuscitation he has reversed hemoconcentration, BUN [...] drink = 0.6 oz pur e alcohol) [facility] Utilities Answer Date Recorded In [...] EDT Office Visit [facility] [address] [place] [phone] Extended Insurance Clerk: Prema Baumann, PHARMACIST ASSISTANT [address] [place] [phone] Scheduled Procedures Name Priority Associated Diagnoses Date/Ti me COLONOSCOPY SCREENING, LOW R ISK WITH POSSIBLE MODERATE SEDATION Healthcare maintenance Procedures * Due to [place] law, this organization might not be sharing [...] to Health Maintenance Results * Due to [place] law, this organization might not be sharing negative HIV tests. * (ABNORMAL) POCT Glycosylated Hemoglobin (HGB A1C), interfaced (03/08/2024 8:01 AM EST) Hemoglobin A1C, POCT 8.3(H) <=5.6 % 03/08/2024 8:10 AM EST [facility] Comment: A1C Recommendation for Non- Adults with Diabetes: <7.0% ADA 2011 Standards of Medical Care in Diabetes Blood 03/08/2024 8:01 AM EST 03/08/2024 8:10 AM EST us Prema Heller NP LAB POCT ORDERABLES - DEVICE F inal Result Performing Organization Address [facility] Co de Phone Number [facility] [address] [place] [address], [place] * (ABNORMAL) POCT Glucose, interfaced (03/08/2024 8:00 AM EST) Glucose, POCT 181(H) 70 - 99 mg/dL 03/08/2024 8:12 AM EST [facility] Comment: The celery wrapper has not determined the efficacy of this test in Critically ill patients. ??[facility] defines Critically ill patients for the [...] DEVICE F inal Result Performing Organization Address [facility] Co de Phone Number [facility] [address] [place] [address], [place] * CT Abdomen Pelvis with Contrast [...] obtain the completed interpretation. ? Workstation ID: [id number] Up-to-date CT equipment and radiation dose reduction [...] changes in the spine. Resulting Agency Comment [id number] Procedure Note Lily Ibarra MD - 08/07/2023 [...] possible to obtain thecompleted interpretation. Workstation ID: [id number] Up-to-date CT equipment and radiation dose reduction techniques wereemployed. CTDIvol: 14.4 mGy. DLP: 721 mGy-cm. us Dm Cobos MD IMG CT PROCEDURES Final R esult * (ABNORMAL) Comprehensive Metabolic Panel (08/07/2023 6:28 PM EDT) NA 140 135 - 145 mmol/L 08/07/2023 7:12 PM EDT [facility] K 4.6 3.5 - 5.3 mmol/L 08/07/2023 7:12 PM EDT [facility] Cl 106 97 - 110 mmol/L 08/07/2023 7:12 PM EDT [facility] CO2 29 24 - 32 mmol/L 08/07/2023 7:12 PM EDT [facility] Anion Gap 5 5 - 15 08/07/2023 7:12 PM EDT [facility] Glucose 171(H) 70 - 99 mg/dL 08/07/2023 7:12 PM EDT [facility] Creatinine 0.79 0.60 - 1.30 mg/dL 08/07/2023 7:12 PM EDT [facility] Calcium 9.1 8.7 - 10.7 mg/dL 08/07/2023 7:12 PM EDT [facility] Total Protein 6.9 6.0 - 8.0 g/dL 08/07/2023 7:12 PM EDT [facility] Albumin 4.1 3.5 - 4.8 g/dL 08/07/2023 7:12 PM EDT [facility] Bilirubin, Total 0.4 0.3 - 1.2 mg/dL 08/07/2023 7:12 PM EDT [facility] Alkaline Phosphatase 85 30 - 115 U/L 08/07/2023 7:12 PM EDT [facility] AST 14 10 - 40 U/L 08/07/2023 7:12 PM EDT [facility] ALT 13 10 - 40 U/L 08/07/2023 7:12 PM EDT [facility] BUN 13 7 - 23 mg/dL 08/07/2023 7:12 PM EDT [facility] eGFR >90 >=60 mL/min/1. 73m2 08/07/2023 7:12 PM EDT [facility] Comment:The estimated glomer [...] MD LAB BLOOD ORDERABLES Valeria lockwood Result [facility] [address] [place] [address], * Microalbumin / creatinine, urine ratio (Lab Collect) (06/09/2021 9:09 AM EDT) Microalbumin, Urine 1.0 mg/dL 06/09/2021 1:27 PM EDT [facility] Creatinine, Urine 140 22 - 328 mg/dL 06/09/2021 1:27 PM EDT [facility] Microalb/Creat Ratio, Random Urine 7.1 <30.0 mcg/mgCr 06/09/2021 1:27 PM EDT [facility] Comment: Microalbumin Reference Range: Normal ? <30 mcg/mg Creatinine Microalbuminuria ? 30-300 mcg/mg Creatinine Clinical Albuminuria >300 mcg/mg Creatinine Reference: ADA Guideline. Diabetes Care. 2004;27 (suppl 1) Urine Urine specimen collection, clean catch / Unknown Non-Blood Collection / Unknown 06/09/2021 9:09 AM EDT 06/09/2021 9:09 AM EDT us Jose Oseguera PHARMACIST ASSISTANT LAB URINE ORDERABLES Final R esult [facility] [address] [place] [address], [place] from Last 3 Months or Most Recently Relevant to Health Maintenance Insurance [facility] WORKERS COMPENSATION Advance Directives Documents on File Type Date Recorded Patient Trucking Manager Expl anation Health Care Proxy 05/25/2023 1:17 PM 05-24 Health Care Proxy 12/23/2008 12:00 AM * Full Code (Latest Code Status on File) Date Activated Date Inactivated Comments 05/24/2023 11:55 PM 06/18/2023 6:05 PM Healthcare Agents on File Name Relationship Healthcare Agent Relationshi p Communication Isadora Toth Spouse Health Care Agent Care Teams Probate Clerk Relationship Specialty Start Date End Date Richard Upton MD [address] [facility] [place] [address] PCP - General Family Medicine 06/25/23
--- OUTSIDE RECORDS SUMMARY | 2024-05-13 18:52 | XMS_ITS | Encounter Summary ---
Author Organization [facility] Address [address] [place] [address] Care Team Providers Care Inker Name Role Phone Richard Upton MD Primary Care Provider [phone] Reason for Visit * Reason Onset Date Comments Don't Cancel Physical 12/04/2020 Encounter Details Date Type Department Care Team (Late st Contact Info) Description 12/04/2020 Telephone [facility] Central Scheduling Department [address] [phone] Telephone Intake, Staff Don't Cancel Physical Social [...] this appt. Collin can be reached at [phone]. documented in this encounter Plan of Treatment Upcoming Encounters Date Type Department Care Team (Late st Contact Info) Description 07/09/2024 8:30 AM EDT Office Visit [facility] [address] [place] [address] Juice Packaging Machines Setter: Prema Baumann, CENTRIFUGAL MACHINE TENDER [address] [place] [address] Scheduled Procedures Name Priority Associated Diagnoses Date/Ti me COLONOSCOPY SCREENING, LOW R ISK WITH POSSIBLE MODERATE SEDATION Healthcare maintenance documented as of this encounter Visit Diagnoses Not on filedocumented in this encounter Additional Health Concerns Infection Onset Date Last Indicated Resolved Time R/O C.diff 06/11/2023 06/11/2023 06/12/2023 9:09 AM EDT documented as of this encounter Care Teams Inker Relationship Specialty Start Date End Date Richard Upton MD [address] [place] [phone] PCP - General Family Medicine 06/25/23 documented as of this encounter
--- OUTSIDE RECORDS SUMMARY | 2024-05-13 18:52 | XMS_ITS | Clinical Summary ---
Author Organization [facility] Address [address] [place] [address] Care Team Providers Care Clinical Nurse Specialist Name Role Phone Joni Null MD Primary [...] BCBS FEE FOR SERVICE HMO Care Teams Clinical Nurse Specialist Relationship Specialty Start Date End Date Joni Null MD [address] [place] [address] PCP - General Family Medicine 07/15/22
--- OUTSIDE RECORDS SUMMARY | 2024-05-13 18:52 | XMS_ITS | Clinical Summary ---
Author Organization [facility] Address [address] [place] [address] Care Team Providers Care Residential Roofer Helper Name Role Phone Richard Upton MD Primary Care Provider [phone] Allergies Active Allergy Reactions Criticality Noted Date [...] with long-term current use of insulin (CMS/HCC) ([facility]) Use 5 times daily. 150 each 5 4 Active FreeStyle Shon 3 Plus Sensor device Change sensor every 15 days. 6 each 3 4 Active insulin lispro 100 unit/mL insulin penIndications: Type 2 diabetes mellitus without complication, with long-term current use of insulin (CMS/HCC) ([facility]) Inject 10-26 Units under the skin 3 times a day before meals. And 2- 6 units for nighttime snack. 30 mL 3 4 07/30/19 25 Active insulin glargine U-300 conc (Toujeo SoloStar U-300 Insulin) 300 unit/mL (1.5 mL) insulin penIndications: Type 2 diabetes mellitus with hyperglycemia, with long-term current use of insulin ([facility]) Inject 60 Units under the [...] well managed with infrequent use of dilaudid PRODUCTION MATERIAL COORDINATOR. With resuscitation he has reversed hemoconcentration, BUN [...] well managed with infrequent use of dilaudid PRODUCTION MATERIAL COORDINATOR. With resuscitation he has reversed hemoconcentration, BUN [...] well managed with infrequent use of dilaudid PRODUCTION MATERIAL COORDINATOR. With resuscitation he has reversed hemoconcentration, BUN [...] well managed with infrequent use of dilaudid PRODUCTION MATERIAL COORDINATOR. With resuscitation he has reversed hemoconcentration, BUN [...] well managed with infrequent use of dilaudid PRODUCTION MATERIAL COORDINATOR. With resuscitation he has reversed hemoconcentration, BUN [...] well managed with infrequent use of dilaudid PRODUCTION MATERIAL COORDINATOR. With resuscitation he has reversed hemoconcentration, BUN [...] Description 05/05/2024 9:00 AM EST Office Visit [facility] Primary Care [address] [place] [phone] Richard Upton MD Type 2 diabetes mellitus with hyperglycemia, with long-term current use of insulin (HCC) (Primary Dx); Dunn's neuroma of both feet; Necrotizing pancreatitis; Healthcare maintenance 04/08/2024 myChart Message [facility] [address] [place] [phone] Mychart, Generic [facility] 04/05/2024 8:30 AM EST Evaluation [facility] [address] [place] [phone] Seda Mcdaniel RN, CDE Type 2 diabetes mellitus without complication, with long-term current use of insulin (CMS/HCC) (HCC) 04/05/2024 Refill [facility] [address] [place] [phone] Anesthesiologist And Critical Care: Prema Baumann, METER READERS SUPERVISOR Type 2 diabetes mellitus with hyperglycemia, with long-term current use of insulin (HCC) (Primary Dx) 03/22/2024 Telephone [facility] [address] [place] [address] Anesthesiologist And Critical Care: Prema Baumann NP 03/18/2024 myChart Message [facility] [address] [place] [phone] Anesthesiologist And Critical Care: Prema Baumann NP insulin 03/08/2024 8:00 AM EST Office Visit [facility] [address] [place] [address] Anesthesiologist And Critical Care: Prema Baumann, METER READERS SUPERVISOR Type 2 diabetes mellitus without complication, with long-term current use of insulin (CMS/HCC) (HCC) (Primary Dx); Hyperlipidemia, unspecified hyperlipidemia type 03/08/2024 Telephone [facility] [address] [place] [address] Anesthesiologist And Critical Care: Prema Baumann, METER READERS SUPERVISOR Med Refill 02/26/2024 Telephone [facility] [address] [place] [address] Anesthesiologist And Critical Care: Annalee Napoles, DO 02/25/2024 Patient Outreach [facility] OCI [address] [address] Darlene Fuentes from Last 3 Months Family History Medical History Relation Name Comments Diabetes Father Breast cancer Mother x2 Multiple sclerosis Mother Other Other Family history of Living Arrangements: Father: DM2 (dx 60s) Mother: Breast cancer x 2, MS, cervical cancer (lives in [place]) 1 Sister: in [place], [employer] No other CAD, cancer Diabetes Sister Relation Name Status Comments Father Alive Mother Other Sister Social History Tobacco Use Types Packs/Day Years Used Date Smoking Tobacco: Former Cigarettes 0.5 20 2 001 - 2020 Smokeless Tobacco: Never Tobacco Cessation:Counseling Given: Yes Alcohol Use Standard Drinks/Week Comments Not Currently 0 (1 standard drink = 0.6 oz pur e alcohol) [facility] Utilities Answer Date Recorded In the [...] Description 07/09/2024 8:30 AM EDT Office Visit [facility] Diabetes Clinic [address] [place] [address] Anesthesiologist And Critical Care: Prema Baumann, METER READERS SUPERVISOR [address] [place] [phone] Scheduled Procedures Name Priority Associated Diagnoses Date/Ti [...] Vaccine (#1) 2023 Alcohol/Substance Use Screening 03/10/2024 [employer] [facility] [facility] [employer] Annual Screening 03/10/2024 Basic [...] Additional history exists Procedures * Due to [place] law, this organization might not be sharing [...] to Health Maintenance Results * Due to [place] law, this organization might not be sharing negative HIV tests. * (ABNORMAL) POCT Glycosylated Hemoglobin (HGB A1C), interfaced (03/08/2024 8:01 AM EST) Hemoglobin A1C, POCT 8.3(H) <=5.6 % 03/08/2024 8:10 AM EST [facility] Comment: A1C Recommendation for Non- Adults with Diabetes: <7.0% ADA 2011 Standards of Medical Care in Diabetes Blood 03/08/2024 8:01 AM EST 03/08/2024 8:10 AM EST us Prema Heller METER READERS SUPERVISOR LAB POCT ORDERABLES - DEVICE F inal Result Performing Organization Address City/[facility]/ZIP Co de Phone Number [facility] [address] [place] [address], [place] * (ABNORMAL) POCT Glucose, interfaced (03/08/2024 8:00 AM EST) Glucose, POCT 181(H) 70 - 99 mg/dL 03/08/2024 8:12 AM EST [facility] Comment: The silvering department supervisor has not determined the efficacy of this test in Critically ill patients. ??[facility] defines Critically ill patients for the purpose [...] DEVICE F inal Result Performing Organization Address City/[facility]/ZIP Co de Phone Number [facility] [address] [place] [address], [place] * CT Abdomen Pelvis with Contrast [...] obtain the completed interpretation. ? Workstation ID: [id number] Up-to-date CT equipment and radiation dose reduction [...] changes in the spine. Resulting Agency Comment [id number] Procedure Note Lily Ibarra MD - 08/07/2023 [...] possible to obtain thecompleted interpretation. Workstation ID: [id number] Up-to-date CT equipment and radiation dose reduction techniques wereemployed. CTDIvol: 14.4 mGy. DLP: 721 mGy-cm. us Dm Cobos MD IMG CT PROCEDURES Final R esult * (ABNORMAL) Comprehensive Metabolic Panel (08/07/2023 6:28 PM EDT) NA 140 135 - 145 mmol/L 08/07/2023 7:12 PM EDT [facility] K 4.6 3.5 - 5.3 mmol/L 08/07/2023 7:12 PM EDT [facility] Cl 106 97 - 110 mmol/L 08/07/2023 7:12 PM EDT [facility] CO2 29 24 - 32 mmol/L 08/07/2023 7:12 PM EDT [facility] Anion Gap 5 5 - 15 08/07/2023 7:12 PM EDT [facility] Glucose 171(H) 70 - 99 mg/dL 08/07/2023 7:12 PM EDT [facility] Creatinine 0.79 0.60 - 1.30 mg/dL 08/07/2023 7:12 PM EDT [facility] Calcium 9.1 8.7 - 10.7 mg/dL 08/07/2023 7:12 PM EDT [facility] Total Protein 6.9 6.0 - 8.0 g/dL 08/07/2023 7:12 PM EDT [facility] Albumin 4.1 3.5 - 4.8 g/dL 08/07/2023 7:12 PM EDT [facility] Bilirubin, Total 0.4 0.3 - 1.2 mg/dL 08/07/2023 7:12 PM EDT [facility] Alkaline Phosphatase 85 30 - 115 U/L 08/07/2023 7:12 PM EDT [facility] AST 14 10 - 40 U/L 08/07/2023 7:12 PM EDT [facility] ALT 13 10 - 40 U/L 08/07/2023 7:12 PM EDT [facility] BUN 13 7 - 23 mg/dL 08/07/2023 7:12 PM EDT [facility] eGFR >90 >=60 mL/min/1. 73m2 08/07/2023 7:12 PM EDT [facility] Comment:The estimated glomer [...] MD LAB BLOOD ORDERABLES Valeria lockwood Result [facility] [address] [place] [address], * Microalbumin / creatinine, urine ratio (Lab Collect) (06/09/2021 9:09 AM EDT) Microalbumin, Urine 1.0 mg/dL 06/09/2021 1:27 PM EDT [facility] Creatinine, Urine 140 22 - 328 mg/dL 06/09/2021 1:27 PM EDT [facility] Microalb/Creat Ratio, Random Urine 7.1 <30.0 mcg/mgCr 06/09/2021 1:27 PM EDT [facility] Comment: Microalbumin Reference Range: Normal ? <30 mcg/mg Creatinine Microalbuminuria ? 30-300 mcg/mg Creatinine Clinical Albuminuria >300 mcg/mg Creatinine Reference: ADA Guideline. Diabetes Care. 2004;27 (suppl 1) Urine Urine specimen collection, clean catch / Unknown Non-Blood Collection / Unknown 06/09/2021 9:09 AM EDT 06/09/2021 9:09 AM EDT Jose Oseguera METER READERS SUPERVISOR LAB URINE ORDERABLES Final R esult [facility] [address] [place] [address], from Last 3 Months or Most Recently Relevant to Health Maintenance Insurance [facility] [place] [place] Advance Directives Documents on File Type Date Recorded Patient Clock And Watch Hands Mounter Expl anation Health Care Proxy 05/25/2023 1:17 PM 05-24 Health Care Proxy 12/23/2008 12:00 AM * Full Code (Latest Code Status on File) Date Activated Date Inactivated Comments 05/24/2023 11:55 PM 06/18/2023 6:05 PM Healthcare Agents on File Name Relationship Healthcare Agent Relationshi p Communication Isadora Toth Spouse Health Care Agent Care Teams Residential Roofer Helper Relationship Specialty Start Date End Date Richard Upton MD [address] [facility] [address] PCP - General Family Medicine 06/25/23
--- OUTSIDE RECORDS SUMMARY | 2024-05-13 18:52 | XMS_ITS | Encounter Summary ---
Author Organization [facility] Address [address] [place], [place] [phone] Care Team Providers Care Medical Record Technician Name Role Phone Richard Upton MD Primary Care Provider [phone] Encounter Details Date Type Department Care Team (Late st Contact Info) Description 06/19/2023 Orders Only [facility] Interventional Radiology [address] [place] [address] Alvaro Kumar MD [address] [place] [phone] Social History Tobacco Use Types Packs/Day Years [...] Description 07/09/2024 8:30 AM EDT Office Visit [facility] Diabetes [facility] [address] [place] [phone] Talent Acquisition Manager: Prema Baumann, LOG OPERATIONS COORDINATOR [address] [place] [phone] Scheduled Procedures Name Priority Associated Diagnoses Date/Ti me COLONOSCOPY SCREENING, LOW R ISK WITH POSSIBLE MODERATE SEDATION Healthcare maintenance documented as of this encounter Visit Diagnoses Not on filedocumented in this encounter Care Teams Medical Record Technician Relationship Specialty Start Date End Date Richard Upton MD [address] [place] [address] PCP - General Family Medicine 06/25/23 documented as of this encounter
--- OUTSIDE RECORDS SUMMARY | 2024-05-13 18:52 | XMS_ITS | Encounter Summary ---
Author Organization [facility] Address [address] [place], [place] [id number] Care Team Providers Care Jig Box Operator Name Role Phone Richard Upton MD Primary Care Provider [phone] Encounter Details Date Type Department Care Team (Late st Contact Info) Description 07/24/2023 Orders Only [facility] Interventional Radiology [address] [place] [address] Jesse Goodman MD [address] [place] [address] Social History Tobacco Use Types Packs/Day Years [...] Description 07/09/2024 8:30 AM EDT Office Visit [facility] Diabetes [facility] [address] [place] [address] Cottonseed Meat Presser: Prema Baumann, LEAD MOBILE DEVELOPER [address] [place] [address] [phone] Scheduled Procedures Name Priority Associated Diagnoses Date/Ti me COLONOSCOPY SCREENING, LOW R ISK WITH POSSIBLE MODERATE SEDATION Healthcare maintenance documented as of this encounter Visit Diagnoses Not on filedocumented in this encounter Care Teams Jig Box Operator Relationship Specialty Start Date End Date Richard Upton MD [address] [place] [address] PCP - General Family Medicine 06/25/23 documented as of this encounter
--- OUTSIDE RECORDS SUMMARY | 2024-05-13 18:52 | XMS_ITS | Encounter Summary ---
Author Organization [facility] Address [address] [id number] Care Team Providers Care Textile Scrap Salvager Name Role Phone Richard Upton MD Primary Care Provider [phone] Encounter Details Date Type Department Care Team (Late st Contact Info) Description 03/18/2024 myChart Message [facility] [address] [place] [address] Marble Chip Terrazzo Worker: Prema Baumann, SANDBLASTER PAINT SPRAYER [address] [place] [address] [phone] insulin Social History Tobacco Use Types Packs/Day Years Used Date Smoking Tobacco: Former Cigarettes 0.5 20 2 001 - 2020 Smokeless Tobacco: Never Alcohol Use Standard Drinks/Week Comments Not Currently 0 (1 standard drink = 0.6 oz pur e alcohol) [facility] Utilities Answer Date Recorded In the past 12 months has e [employer], gas, oil, or water [employer] threatened to shut off services in your [...] Description 07/09/2024 8:30 AM EDT Office Visit [facility] [address] [place] [address] Marble Chip Terrazzo Worker: Prema Baumann, SANDBLASTER PAINT SPRAYER [address] [place] [address] Scheduled Procedures Name Priority Associated Diagnoses Date/Ti me COLONOSCOPY SCREENING, LOW R ISK WITH POSSIBLE MODERATE SEDATION Healthcare maintenance documented as of this encounter Visit Diagnoses Not on filedocumented in this encounter Care Teams Textile Scrap Salvager Relationship Specialty Start Date End Date Richard Upton MD [address] [place] [address] [place] [address] PCP - General Family Medicine 06/25/23 documented as of this encounter
--- OUTSIDE RECORDS SUMMARY | 2024-05-13 18:52 | XMS_ITS | Encounter Summary ---
Author Organization [facility] Address [address] [place] [address] Care Team Providers Care Piano Professor Name Role Phone Richard Upton MD Primary Care Provider [phone] Encounter Details Date Type Department Care Team (Late st Contact Info) Description 07/15/2023 myChart Message [facility] Financial Clearance Department [address] [place] [address] Mychart, Generic Provider [address] [place], [place] [phone] Medication Authorization Approval Social History Tobacco Use [...] 07/09/2024 8:30 AM EDT Office Visit [facility] Diabetes [facility] [address] [place] [address] Paper Cup Handle Machine Operator: Prema Baumann, ACID FILLER [address] [place] [address] [phone] Scheduled Procedures Name Priority Associated Diagnoses Date/Ti me COLONOSCOPY SCREENING, LOW R ISK WITH POSSIBLE MODERATE SEDATION Healthcare maintenance documented as of this encounter Visit Diagnoses Not on filedocumented in this encounter Care Teams Piano Professor Relationship Specialty Start Date End Date Richard Upton MD [address] [place] [address] PCP - General Family Medicine 06/25/23 documented as of this encounter
--- OUTSIDE RECORDS SUMMARY | 2024-05-13 18:52 | XMS_ITS | Encounter Summary ---
Author Organization [facility] Address [address] [place], [place] [address] Care Team Providers Care Seasonal Driver Name Role Phone Richard Upton MD Primary Care Provider [phone] Encounter Details Date Type Department Care Team (Late st Contact Info) Description 06/23/2023 Orders Only [facility] Interventional Radiology [address] [place] [address] Oswaldo Gonzalez MD [address] [place] [address] Social History Tobacco Use Types Packs/Day Years [...] Description 07/09/2024 8:30 AM EDT Office Visit [facility] Diabetes Clinic [address] [place] [address] Golf Club Repairer: Prema Baumann, PRECINCT POLICE SERGEANT [address] [place] [address] Scheduled Procedures Name Priority Associated Diagnoses Date/Ti me COLONOSCOPY SCREENING, LOW R ISK WITH POSSIBLE MODERATE SEDATION Healthcare maintenance documented as of this encounter Visit Diagnoses Not on filedocumented in this encounter Care Teams Seasonal Driver Relationship Specialty Start Date End Date Richard Upton MD [address] [place] [address] PCP - General Family Medicine 06/25/23 documented as of this encounter
--- OUTSIDE RECORDS SUMMARY | 2024-05-13 18:52 | XMS_ITS | Encounter Summary ---
Author Organization [facility] Address [address] [place] [address] Care Team Providers Care Supervisor Pressing Department Name Role Phone Richard Upton MD Primary Care Provider [phone] Encounter Details Date Type Department Care Team (Late st Contact Info) Description 11/03/2023 Orders Only [facility] Building [address], 5th [place] [address] Eleazar Prince MD [address] [place] [address] Social History Tobacco Use Types Packs/Day Years Used Date Smoking Tobacco: Former Cigarettes 0.5 20 2 001 - 2020 Smokeless Tobacco: Never Alcohol Use Standard Drinks/Week Comments Not Currently 0 (1 standard drink = 0.6 oz pur e alcohol) [facility] Utilities Answer Date Recorded In [...] Description 07/09/2024 8:30 AM EDT Office Visit [facility] Diabetes Clinic [address] [place] [address] Second Operator: Prema Baumann, BRAKE LINING DRILLER [address] [place], [place] [phone] Scheduled Procedures Name Priority Associated Diagnoses Date/Ti me COLONOSCOPY SCREENING, LOW R ISK WITH POSSIBLE MODERATE SEDATION Healthcare maintenance documented as of this encounter Visit Diagnoses Not on filedocumented in this encounter Care Teams Supervisor Pressing Department Relationship Specialty Start Date End Date Richard Upton MD [address] [place] [address] PCP - General Family Medicine 06/25/23 documented as of this encounter
== END 2024-05-13 15:19 | disposition home or self-care (01) ==
LOC: HO.MRI 15:18
PROVIDERS: PCP Family Medicine; Visit Provider Neurological Surgery
DX: R20.0 Anesthesia of skin (principal); R20.2 Paresthesia of skin
CPT/HCPCS: 72141

== ENCOUNTER → 2024-05-13 15:19 | Outpatient (BNV) | payer OTHER, SELFPAY | PROVIDERS: PCP Family Medicine; Visit Provider Radiology Diagnostic Radiology | DX: M47.812 Spondylosis without myelopathy or radiculopathy, cervical region (principal); M48.02 Spinal stenosis, cervical region | CPT/HCPCS: 72141 ==

== ENCOUNTER 2024-06-15 18:09 | Outpatient (REF) | payer OTHER, SELFPAY ==
--- NOTE | ~2024-06-15 | MR_ITS ---
EXAMINATION: MR LUMBAR SPINE WITHOUT CONTRAST CLINICAL INFORMATION: Intervertebral discs disorders with radiculopathy, lumbar region. COMPARISON: No prior MRI. Correlated to CT dated December 12, 2022. TECHNIQUE: MRI of the lumbar spine was obtained using routine sequences without contrast. FINDINGS: Last rib-bearing vertebra labeled T12. No bone marrow STIR signal abnormality. Disc desiccation, L4-5 L5-S1 and to a lesser extent L2-3. Focal hyperintense T2 STIR signal in the posterior intervertebral disc L2-3 and L4-5 likely focal annular fissure. Conus medullaris ends at the superior endplate of L1 with normal signal. T12-L1: No disc herniation. No neuroforamina stenosis. L1-2: Broad-based disc bulging. Facet joint hypertrophy. Reduced AP diameter of the thecal sac and the neural foramina. No compression upon neural elements. L2-3: Central and right subarticular broad-based disc herniation resulting in ventral indentation to the thecal sac. Facet joint and ligamentum flavum hypertrophy. Reduced AP diameter of the thecal sac and the neural foramina. L3-4: Broad-based disc bulging. Facet joint and ligamentum flavum hypertrophy. Reduced AP diameter of the thecal sac and the neural foramina likely encroaching the exiting roots of L4. L4-5: Broad-based disc bulging. Facet joint and ligamentum flavum hypertrophy. Reduced AP diameter of the thecal sac and the neural foramina encroaching the L5 and likely L4 exiting nerve roots. L5-S1: There is a central broad-based disc herniation abutting the S1 nerve root on the lateral recesses. Bilateral facet joint hypertrophy. Bilateral neuroforamina narrowing likely encroaching the L5 exiting nerve roots. No prevertebral compartment hematoma, mass or fluid collection. There are multifocal septated cystic lesions in the head and uncinate processes of the pancreas. MR/MR lumbar spine wo con IMPRESSION: Central and right subarticular broad-based disc herniation at L2-3 abutting the right L3 nerve root on its lateral recess. Central broad-based disc herniation L5-S1 abutting the S1 nerve roots. Multilevel lumbar spondylosis more conspicuous at L4-5 and L3-4 levels encroaching the exiting nerve roots. Multiloculated versus septated cystic lesion, pancreatic head and uncinate process. Electronically signed by: Axel Abel MD 06/16/2024 07:38 AM EDT
--- OUTSIDE RECORDS SUMMARY | 2024-06-15 19:22 | XMS_ITS | Encounter Summary ---
Author Organization [facility] Address [address] [place], [place] [address] Care Team Providers Care Pig Machine Crane Operator Name Role Phone Richard Upton MD Primary Care Provider [phone] Encounter Details Date Type Department Care Team (Late st Contact Info) Description 06/19/2023 Orders Only [facility] Interventional Radiology [address] [place] [address] Alvaro Kumar MD [address] [place] [address] Social History Tobacco Use Types Packs/Day Years [...] [facility] ACC Building Diabetes Clinic [address] [place] [address] Supervisor Bleach Plant: Prema Baumann, CLASS C DRIVER [address] [place] [address] Scheduled Procedures Name Priority Associated Diagnoses Date/Ti me COLONOSCOPY SCREENING, LOW R ISK WITH POSSIBLE MODERATE SEDATION Healthcare maintenance documented as of this encounter Visit Diagnoses Not on filedocumented in this encounter Care Teams Pig Machine Crane Operator Relationship Specialty Start Date End Date Richard Upton MD [address] [place] [address] PCP - General Family Medicine 06/25/23 documented as of this encounter
--- OUTSIDE RECORDS SUMMARY | 2024-06-15 19:22 | XMS_ITS | Clinical Summary ---
Author Organization [facility] Address [address] [place] [address] Care Team Providers Care Door To Door Lead Generation Name Role Phone Joni Null MD Primary [...] patient's age to complete this topic Insurance [facility] [place] [address] BCBS FEE FOR SERVICE HMO Care Teams Door To Door Lead Generation Relationship Specialty Start Date End Date Joni Null MD [address] [place] [address] PCP - General Family Medicine 07/15/22
--- OUTSIDE RECORDS SUMMARY | 2024-06-15 19:22 | XMS_ITS | Clinical Summary ---
Author Organization [facility] Address [address] [place] [address] Care Team Providers Care Research Program Assistant Name Role Phone Richard Upton MD Primary Care Provider [phone] Allergies Active Allergy Reactions Criticality Noted Date [...] once a day. 30 capsule 5 4 Active BD Ultra-Fine Nusrat Pen Needle 4 mm x 32 gIndications:Ty pe 2 diabetes mellitus without complication, with long-term current use of insulin (HCC) Use 5 times daily. 150 each 5 4 Active FreeStyle Shon 3 Plus Sensor device Change sensor every 15 days. 6 each 3 4 Active insulin lispro 100 unit/mL insulin penIndications: Type 2 diabetes mellitus without complication, with long-term current use of insulin (HCC) Inject 10-26 Units under the skin 3 times a day before meals. And 2- 6 units for nighttime snack. 30 mL 3 4 07/30/19 25 Active insulin glargine U-300 conc (Toujeo SoloStar U-300 Insulin) 300 unit/mL (1.5 mL) insulin penIndications: Type 2 diabetes mellitus with hyperglycemia, with long-term current use of insulin (HCC) Inject 60 Units under the skin in the morning. Increase by 2 units every 3 days until fasting am is <130. MDD80 20 mL 11 5 Active Active Problems Problem Noted Date Diagnosed Date Dunn's neuroma of both feet 05/05/2024 Assessment & Plan (05/23/2024 4:53 PM EDT): Podiatry referral placed. 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 Follows with gastroenterology. Orders: Comprehensive metabolic panel; Future Assessment & [...] well managed with infrequent use of dilaudid LAMP DECORATOR. With resuscitation he has reversed hemoconcentration, BUN [...] well managed with infrequent use of dilaudid LAMP DECORATOR. With resuscitation he has reversed hemoconcentration, BUN [...] well managed with infrequent use of dilaudid LAMP DECORATOR. With resuscitation he has reversed hemoconcentration, BUN [...] well managed with infrequent use of dilaudid LAMP DECORATOR. With resuscitation he has reversed hemoconcentration, BUN [...] well managed with infrequent use of dilaudid LAMP DECORATOR. With resuscitation he has reversed hemoconcentration, BUN [...] well managed with infrequent use of dilaudid LAMP DECORATOR. With resuscitation he has reversed hemoconcentration, BUN [...] use of insulin 01/31/2012 Assessment & Plan (05/23/2024 4:53 PM EDT): Followed by endocrinology, currently doing well. Has pain in his feet secondary to Dunn's neuroma; given benefits of diabetic foot exam, referring to podiatry. Orders: Ambulatory referral to Podiatry; Future Assessment [...] Description 05/05/2024 9:00 AM EST Office Visit [facility] Primary Care [address] [place] [address] Rcihard Upton MD Healthcare maintenance (Primary Dx); Type 2 diabetes mellitus with hyperglycemia, with long-term current use of insulin; Dunn's neuroma of both feet; Necrotizing pancreatitis; Snoring 04/08/2024 myChart Message [facility] Diabetes Education [address] [place] [address] [facility]chart, [facility]/05/2024 8:30 AM EST Evaluation [facility] [address] [place] [address] Seda Mcdaniel RN, CDE Type 2 diabetes mellitus without complication, with long-term current use of insulin 04/05/2024 Refill [facility] [address] [place] [address] Delinquency Prevention Social Worker: Prema Baumann [employer] Type 2 diabetes mellitus with hyperglycemia, with long-term current use of insulin (Primary Dx) 03/22/2024 Telephone [facility] [address] [place] [address] Delinquency Prevention Social Worker: Prema Baumann NP 03/18/2024 myChart Message [facility] [address] [place] [address] Delinquency Prevention Social Worker: Prema Baumann [employer] insulin from Last 3 Months Family History Medical History Relation Name Comments Diabetes Father Breast cancer Mother x2 Multiple sclerosis Mother Other Other Family history of Living Arrangements: Father: DM2 (dx 60s) Mother: Breast cancer x 2, MS, cervical cancer (lives in [place]) 1 Sister: in [place], [employer] No other CAD, cancer Diabetes Sister Relation Name Status Comments Father Alive Mother Other Sister Social History Tobacco Use Types Packs/Day Years Used Date Smoking Tobacco: Former Cigarettes 0.5 20 2 001 - 2020 Smokeless Tobacco: Never Tobacco Cessation:Counseling Given: Yes Alcohol Use Standard Drinks/Week Comments Not Currently 0 (1 standard drink = 0.6 oz pur e alcohol) [facility] Utilities Answer Date Recorded [...] Description 07/09/2024 8:30 AM EDT Office Visit [facility] Diabetes Clinic [address] [place] [address] Delinquency Prevention Social Worker: Prema Baumnan, [employer] [address] [place] [address] Scheduled Procedures Name Priority Associated Diagnoses Date/Ti [...] Vaccines (1 of 2) 09/01/2023 COVID-19 Vaccine ( - season) 2023 08/22/2020, 07/28/2020 Alcohol/Substance Use Screening 03/10/2024 11/17/2023 Social Drivers of Health Annual Screening 03/10/2024 Basic Metabolic Panel 08/06/2024 08/07/2023 , 07/24/2023, 06/23/2023, Additional history exists Influenza Vaccine (Season Ended) 2024 Hemoglobin A1C 12/05/2024 06/04/2024, 03/12, 03/08/2024, Additional history exists Depression Screening and Follow-Up 05/05/2025 05/05/2024, 05/05/2024 HIV Screening 05/05/2025 Postponed from 1973 (Patient Declined) Hepatitis C Screening 05/08/2025 Postpo grisel from 1973 (Patient Declined) RSV Vaccine (60+ years old and patients) (1 - 1-dose 75+ series) 2048 Abdominal Aortic Aneurysm (AAA) Screening Completed 08/07/2023, 07/25/2023, 06/25/2023, Additional history exists Procedures * Due to [place] CHROMA[place] law, this organization might not be sharing negative HIV tests. Procedure Name Priority Date/Time Associated Diagnosis Comments POCT GLYCOSYLATED HEMOGLOBIN (HGB A1C) Routine 03/08/2024 8:[address] ABDOMEN PELVIS W CONTRAST STAT 08/07/2023 10:16 PM EDT COMPREHENSIVE METABOLIC PANEL STAT 08/07/2023 6:28 PM EDT MICROALBUMIN, RANDOM URINE WITH CREATININE Routine 06/09/2021 9:09 AM EDT Type 2 diabetes mellitus without complication, without long-term current use of insulin from Last 3 Months or Most Recently Relevant to Health Maintenance Results * Due to [place] law, this organization might not be sharing negative HIV tests. * (ABNORMAL) POCT Glycosylated Hemoglobin (HGB A1C), interfaced (03/08/2024 8:01 AM EST) Hemoglobin A1C, POCT 8.3(H) <=5.6 % 03/08/2024 8:10 AM EST [facility] Comment: A1C Recommendation for Non- Adults with Diabetes: <7.0% ADA 2011 Standards of Medical Care in Diabetes Blood 03/08/2024 8:01 AM EST 03/08/2024 8:10 AM EST us Prema Heller NP LAB POCT ORDERABLES - DEVICE F inal Result [facility], POC [address] [place] [address], [place] * CT Abdomen Pelvis with Contrast [...] obtain the completed interpretation. ? Workstation ID: [id number] Up-to-date CT equipment and radiation dose reduction [...] changes in the spine. Resulting Agency Comment [id number] Procedure Note Lily Ibarra MD - 08/07/2023 [...] possible to obtain thecompleted interpretation. Workstation ID: [id number] Up-to-date CT equipment and radiation dose reduction techniques wereemployed. CTDIvol: 14.4 mGy. DLP: 721 mGy-cm. us Dm Cobos MD IMG CT PROCEDURES Final R esult * (ABNORMAL) Comprehensive Metabolic Panel (08/07/2023 6:28 PM EDT) NA 140 135 - 145 mmol/L 08/07/2023 7:12 PM EDT [facility] K 4.6 3.5 - 5.3 mmol/L 08/07/2023 7:12 PM EDT [facility] Cl 106 97 - 110 mmol/L 08/07/2023 7:12 PM EDT [facility] CO2 29 24 - 32 mmol/L 08/07/2023 7:12 PM EDT [facility] Anion Gap 5 5 - 15 08/07/2023 7:12 PM EDT [facility] Glucose 171(H) 70 - 99 mg/dL 08/07/2023 7:12 PM EDT [facility] Creatinine 0.79 0.60 - 1.30 mg/dL 08/07/2023 7:12 PM EDT [facility] Calcium 9.1 8.7 - 10.7 mg/dL 08/07/2023 7:12 PM EDT [facility] Total Protein 6.9 6.0 - 8.0 g/dL 08/07/2023 7:12 PM EDT [facility] Albumin 4.1 3.5 - 4.8 g/dL 08/07/2023 7:12 PM EDT [facility] Bilirubin, Total 0.4 0.3 - 1.2 mg/dL 08/07/2023 7:12 PM EDT [facility] Alkaline Phosphatase 85 30 - 115 U/L 08/07/2023 7:12 PM EDT [facility] AST 14 10 - 40 U/L 08/07/2023 7:12 PM EDT [facility] ALT 13 10 - 40 U/L 08/07/2023 7:12 PM EDT [facility] BUN 13 7 - 23 mg/dL 08/07/2023 7:12 PM EDT [facility] eGFR >90 >=60 mL/min/1. 73m2 08/07/2023 7:12 PM EDT [facility] Comment:The estimated glomer ular [...] MD LAB BLOOD ORDERABLES Valeria lockwood Result [facility] [address] [place] [address], * Microalbumin / creatinine, urine ratio (Lab Collect) (06/09/2021 9:09 AM EDT) Microalbumin, Urine 1.0 mg/dL 06/09/2021 1:27 PM EDT [facility] Creatinine, Urine 140 22 - 328 mg/dL 06/09/2021 1:27 PM EDT [facility] Microalb/Creat Ratio, Random Urine 7.1 <30.0 mcg/mgCr 06/09/2021 1:27 PM EDT [facility] Comment: Microalbumin Reference Range: Normal ? <30 mcg/mg Creatinine Microalbuminuria ? 30-300 mcg/mg Creatinine Clinical Albuminuria >300 mcg/mg Creatinine Reference: ADA Guideline. Diabetes Care. 2004;27 (suppl 1) Urine Urine specimen collection, clean catch / Unknown Non-Blood Collection / Unknown 06/09/2021 9:09 AM EDT 06/09/2021 9:09 AM EDT us Jose Oseguera [employer] LAB URINE ORDERABLES Final R esult [facility] [address] [place] [address], from Last 3 Months or Most Recently Relevant to Health Maintenance Insurance [id number] [employer] Advance Directives Documents on File Type Date Recorded Patient Junior Assistant Manager Expl anation Health Care Proxy 05/25/2023 1:17 PM 05-24 Health Care Proxy 12/23/2008 12:00 AM * Full Code (Latest Code Status on File) Date Activated Date Inactivated Comments 05/24/2023 11:55 PM 06/18/2023 6:05 PM Healthcare Agents on File Name Relationship Healthcare Agent Relationshi p Communication Isadora Toth Spouse Health Care Agent Care Teams Research Program Assistant Relationship Specialty Start Date End Date Richard Upton MD [address] [facility] Family [facility] [place] [address] PCP - General Family Medicine 06/25/23
--- OUTSIDE RECORDS SUMMARY | 2024-06-15 19:22 | XMS_ITS | Encounter Summary ---
Author Organization [facility] Address [address] [place], [place] [address] Care Team Providers Care Audio Visual Arts Director Name Role Phone Richard Upton MD Primary Care Provider [phone] Encounter Details Date Type Department Care Team (Late st Contact Info) Description 07/24/2023 Orders Only [facility] Interventional Radiology [address] [place] [address] Jesse Goodman MD [address] [place] [address] Social History Tobacco Use Types Packs/Day Years [...] Description 07/09/2024 8:30 AM EDT Office Visit [facility] ACC Building Diabetes Clinic [address] [place] [address] Newborn Photographer: Prema Baumann, ELECTRIC REFRIGERATOR SERVICER [address] [place] [address] [phone] Scheduled Procedures Name Priority Associated Diagnoses Date/Ti me COLONOSCOPY SCREENING, LOW R ISK WITH POSSIBLE MODERATE SEDATION Healthcare maintenance documented as of this encounter Visit Diagnoses Not on filedocumented in this encounter Care Teams Audio Visual Arts Director Relationship Specialty Start Date End Date Richard Upton MD [address] [place] [address] PCP - General Family Medicine 06/25/23 documented as of this encounter
--- OUTSIDE RECORDS SUMMARY | 2024-06-15 19:22 | XMS_ITS | Encounter Summary ---
Author Organization [facility] Address [address] [place], [place] [address] Care Team Providers Care Results Technician Name Role Phone Richard Upton MD Primary Care Provider [phone] Encounter Details Date Type Department Care Team (Late st Contact Info) Description 06/23/2023 Orders Only [facility] Interventional Radiology [address] [place] [address] Oswaldo Gonzalez MD [address] [place] [address] Social History Tobacco Use Types Packs/Day Years [...] Description 07/09/2024 8:30 AM EDT Office Visit [facility] ACC Building Diabetes Clinic [address] [place] [address] Boilermaker Assembly And Erection: Prema Baumann, PROFESSOR OF FOOD BIOCHEMISTRY [address] [place] [phone] Scheduled Procedures Name Priority Associated Diagnoses Date/Ti me COLONOSCOPY SCREENING, LOW R ISK WITH POSSIBLE MODERATE SEDATION Healthcare maintenance documented as of this encounter Visit Diagnoses Not on filedocumented in this encounter Care Teams Results Technician Relationship Specialty Start Date End Date Richard Upton MD [address] [place] [address] PCP - General Family Medicine 06/25/23 documented as of this encounter
--- OUTSIDE RECORDS SUMMARY | 2024-06-15 19:22 | XMS_ITS | Referral Summary ---
Author Organization [facility] Address [address] [place] [address] Care Team Providers Care Payroll Representative Name Role Phone Richard Upton MD Primary Care Provider Encounters Date Type Department Care Team Description 05/05/2024 9:00 AM EST Office Visit [facility] Primary Care [address] [place] [address] Richard Upton MD Healthcare maintenance (Primary Dx); Type 2 diabetes mellitus with hyperglycemia, with long-term current use of insulin; Dunn's neuroma of both feet; Necrotizing pancreatitis; Snoring 04/08/2024 myChart Message [facility] Education [address] [place] [address] Mychart, Generic Provider [facility]/05/2024 Refill [facility] [address] [place] [address] Spacecraft Systems Engineer: Prema Baumann, GSE MECHANIC Type 2 diabetes mellitus with hyperglycemia, with long-term current use of insulin (Primary Dx) 04/05/2024 8:30 AM EST Evaluation [facility] [address] [place] [address]27 Seda Mcdaniel RN, CDE Type 2 diabetes mellitus without complication, with long-term current use of insulin 03/22/2024 Telephone [facility] [address] [place] [phone] Spacecraft Systems Engineer: Prema Baumann NP 03/18/2024 myChart Message [facility] Building Diabetes Clinic [address] [place], [place] [id number] Spacecraft Systems Engineer: Prema Baumann, GSE MECHANIC insulin from Last 3 Months Allergies Active Allergy [...] hyperglycemia, with long-term current use of insulin ([facility]) Inject 60 Units under the skin [...] 4 Necrotizing pancreatitis 05/24/2023 Assessment & Plan (05/23/2024 [...] well managed with infrequent use of dilaudid RV MECHANIC. With resuscitation he has reversed hemoconcentration, BUN [...] well managed with infrequent use of dilaudid RV MECHANIC. With resuscitation he has reversed hemoconcentration, BUN [...] well managed with infrequent use of dilaudid RV MECHANIC. With resuscitation he has reversed hemoconcentration, BUN [...] well managed with infrequent use of dilaudid RV MECHANIC. With resuscitation he has reversed hemoconcentration, BUN [...] well managed with infrequent use of dilaudid RV MECHANIC. With resuscitation he has reversed hemoconcentration, BUN [...] well managed with infrequent use of dilaudid RV MECHANIC. With resuscitation he has reversed hemoconcentration, BUN [...] = 0.6 oz pur e alcohol) [facility] Utilities Answer Date Recorded In the past [...] Description 07/09/2024 8:30 AM EDT Office Visit [facility] [address] [place] [address] Spacecraft Systems Engineer: Prema Baumann, GSE MECHANIC [address] [place] [address] Scheduled Procedures Name Priority Associated Diagnoses Date/Ti me COLONOSCOPY SCREENING, LOW R ISK WITH POSSIBLE MODERATE SEDATION Healthcare maintenance Procedures * Due to [place] Broadchoice law, this organization might not be sharing [...] Health Maintenance Results * Due to [place] Broadchoice law, this organization might not be sharing negative HIV tests. * (ABNORMAL) POCT Glycosylated Hemoglobin (HGB A1C), interfaced (03/08/2024 8:01 AM EST) Hemoglobin A1C, POCT 8.3(H) <=5.6 % 03/08/2024 8:10 AM EST [facility] Comment: A1C Recommendation for Non- Adults with Diabetes: <7.0% ADA 2011 Standards of Medical Care in Diabetes Blood 03/08/2024 8:01 AM EST 03/08/2024 8:10 AM EST us Prema Heller NP LAB POCT ORDERABLES - DEVICE F inal Result [facility], POC [address] [place] [address], [place] * CT Abdomen Pelvis with Contrast [...] obtain the completed interpretation. ? Workstation ID: [id number] Up-to-date CT equipment and radiation dose reduction [...] changes in the spine. Resulting Agency Comment [id number] Procedure Note Lily Ibarra MD - 08/07/2023 [...] possible to obtain thecompleted interpretation. Workstation ID: [id number] Up-to-date CT equipment and radiation dose reduction techniques wereemployed. CTDIvol: 14.4 mGy. DLP: 721 mGy-cm. us Dm Cobos MD IMG CT PROCEDURES Final R esult * (ABNORMAL) Comprehensive Metabolic Panel (08/07/2023 6:28 PM EDT) NA 140 135 - 145 mmol/L 08/07/2023 7:12 PM EDT [facility] K 4.6 3.5 - 5.3 mmol/L 08/07/2023 7:12 PM EDT [facility] Cl 106 97 - 110 mmol/L 08/07/2023 7:12 PM EDT [facility] CO2 29 24 - 32 mmol/L 08/07/2023 7:12 PM EDT [facility] Anion Gap 5 5 - 15 08/07/2023 7:12 PM EDT [facility] Glucose 171(H) 70 - 99 mg/dL 08/07/2023 7:12 PM EDT [facility] Creatinine 0.79 0.60 - 1.30 mg/dL 08/07/2023 7:12 PM EDT [facility] Calcium 9.1 8.7 - 10.7 mg/dL 08/07/2023 7:12 PM EDT [facility] Total Protein 6.9 6.0 - 8.0 g/dL 08/07/2023 7:12 PM EDT [facility] Albumin 4.1 3.5 - 4.8 g/dL 08/07/2023 7:12 PM EDT [facility] Bilirubin, Total 0.4 0.3 - 1.2 mg/dL 08/07/2023 7:12 PM EDT [facility] Alkaline Phosphatase 85 30 - 115 U/L 08/07/2023 7:12 PM EDT [facility] AST 14 10 - 40 U/L 08/07/2023 7:12 PM EDT [facility] ALT 13 10 - 40 U/L 08/07/2023 7:12 PM EDT [facility] BUN 13 7 - 23 mg/dL 08/07/2023 7:12 PM EDT [facility] eGFR >90 >=60 mL/min/1. 73m2 08/07/2023 7:12 PM EDT [facility] Comment:The estimated glomer ular [...] MD LAB BLOOD ORDERABLES Valeria lockwood Result [facility] [address] [place] [address], * Microalbumin / creatinine, urine ratio (Lab Collect) (06/09/2021 9:09 AM EDT) Microalbumin, Urine 1.0 mg/dL 06/09/2021 1:27 PM EDT [facility] Creatinine, Urine 140 22 - 328 mg/dL 06/09/2021 1:27 PM EDT [facility] Microalb/Creat Ratio, Random Urine 7.1 <30.0 mcg/mgCr 06/09/2021 1:27 PM EDT [facility] Comment: Microalbumin Reference Range: Normal ? <30 mcg/mg Creatinine Microalbuminuria ? 30-300 mcg/mg Creatinine Clinical Albuminuria >300 mcg/mg Creatinine Reference: ADA Guideline. Diabetes Care. 2004;27 (suppl 1) Urine Urine specimen collection, clean catch / Unknown Non-Blood Collection / Unknown 06/09/2021 9:09 AM EDT 06/09/2021 9:09 AM EDT us Jose Oseguera GSE MECHANIC LAB URINE ORDERABLES Final R esult [facility] [address] [place] [address], from Last 3 Months or Most Recently Relevant to Health Maintenance Insurance [id number] [employer] Advance Directives Documents on File Type Date Recorded Patient Small Boat Engineer Expl anation Health Care Proxy 05/25/2023 1:17 PM 05-24 Health Care Proxy 12/23/2008 12:00 AM * Full Code (Latest Code Status on File) Date Activated Date Inactivated Comments 05/24/2023 11:55 PM 06/18/2023 6:05 PM Healthcare Agents on File Name Relationship Healthcare Agent Relationshi p Communication Isadora Toth Spouse Health Care Agent Care Teams Payroll Representative Relationship Specialty Start Date End Date Richard Upton MD [address] [facility] [place] [address] PCP - General Family Medicine 06/25/23
--- OUTSIDE RECORDS SUMMARY | 2024-06-15 19:22 | XMS_ITS | Encounter Summary ---
Author Organization [facility] Address [address] [place] [address] Care Team Providers Care Home Health Speech Therapist Name Role Phone Richard Upton MD Primary Care Provider [phone] Reason for Visit * Reason Onset Date Comments Don't Cancel Physical 12/04/2020 Encounter Details Date Type Department Care Team (Late st Contact Info) Description 12/04/2020 Telephone [facility] Central Scheduling Department [address] [place] [phone] Telephone Intake, Staff Don't Cancel Physical Social [...] this appt. Collin can be reached at [phone]. documented in this encounter Plan of Treatment Upcoming Encounters Date Type Department Care Team (Late st Contact Info) Description 07/09/2024 8:30 AM EDT Office Visit [facility] Clinic [address] [place] [address] Delicate Fabrics Presser: Prema Baumann, EDUCATIONAL INSTITUTION CURATOR [address] [place] [address] Scheduled Procedures Name Priority Associated Diagnoses Date/Ti me COLONOSCOPY SCREENING, LOW R ISK WITH POSSIBLE MODERATE SEDATION Healthcare maintenance documented as of this encounter Visit Diagnoses Not on filedocumented in this encounter Additional Health Concerns Infection Onset Date Last Indicated Resolved Time R/O C.diff 06/11/2023 06/11/2023 06/12/2023 9:09 AM EDT documented as of this encounter Care Teams Home Health Speech Therapist Relationship Specialty Start Date End Date Richard Upton MD [address] [place] [address] PCP - General Family Medicine 06/25/23 documented as of this encounter
--- OUTSIDE RECORDS SUMMARY | 2024-06-15 19:22 | XMS_ITS | Data Portability ---
Author Organization [facility] Address [address] [place] [address] Care Team Providers Care Fabricator Industrial Furnace Name Role Phone JONI NULL Referring Provider Assessment No assessment recorded. Plan of Treatment Reminders Order Date Submit Date Provider Last Modified By Organization Details Last Modified Time Details Appointments None recorded. Lab None recorded. Referral None recorded. Procedures fluorescein eye stain (PROC) 2018 019 [email or web address] Not available 9 08:48:25 Surgeries None recorded. Imaging None recorded. Medication Orders erythromyci n 5 mg/gram (0.5 %) eye ointment 2018 019 [email or web address] Not available 9 16:14:53 Patient TargetsNo targets recorded. Patient InstructionsNo instructions recorded. Reason for Referral None Reported. Procedures Surgical History Date Name Laterality Status Provider Name and Address Organization Details Recorded Time 9 Fluorescein eye exam completed [facility] 06/07/2018 16:12:53 Imaging Results None recorded. [...] [degF] 120 mm[Hg] 80 mm[Hg] [facility] 9 10:28:02 Social History None recorded. Functional Status None recorded. Mental Status None recorded. Family History Nothing Reported. Medical History No medical history recorded. Past Encounters Encounter ID Performer Location Encounter Start Date Encounter Closed Date Diagnosis/Indication Diagnosis SNOMED-CT Code Diagnosis ICD10 Code Diagnosis Note [id number] Madisyn Diaz MD [facility] [address] [place] [address] 06/07/2018 09:58:18 06/07/2018 10:51:49 Foreign body in eye [id number] [id number] T15.90XA 42/M with R-side FB sensation after [...] Guarantor Name 06/07/2018 1 [place] [id number] Collin Toth [id number] Collin Toth Notes Date Note Type [...] swelling, no fever Madisyn Diaz MD [address] [place] [address], [phone], [facility] 06/07/2018 18:47:52
--- OUTSIDE RECORDS SUMMARY | 2024-06-15 19:22 | XMS_ITS | Encounter Summary ---
Author Organization [facility] Address [address] [place] [address] Care Team Providers Care Special Education Resource Teacher Name Role Phone Richard Upton MD Primary Care Provider [phone] Encounter Details Date Type Department Care Team (Late st Contact Info) Description 07/15/2023 myChart Message [facility] Financial Clearance Department [address] [place] [address] Mychart, Generic Provider [address] [place], [place] [phone] Medication Authorization Approval Social History Tobacco Use [...] Description 07/09/2024 8:30 AM EDT Office Visit [facility] [address] [place] [address] Lookback Coordinator: Prema Baumann, FINANCIAL AID COORDINATOR [address] [place] [phone] Scheduled Procedures Name Priority Associated Diagnoses Date/Ti me COLONOSCOPY SCREENING, LOW R ISK WITH POSSIBLE MODERATE SEDATION Healthcare maintenance documented as of this encounter Visit Diagnoses Not on filedocumented in this encounter Care Teams Special Education Resource Teacher Relationship Specialty Start Date End Date Richard Upton MD [address] [place] [address] PCP - General Family Medicine 06/25/23 documented as of this encounter
--- OUTSIDE RECORDS SUMMARY | 2024-06-15 19:22 | XMS_ITS | Encounter Summary ---
Author Organization [facility] Address [address] [place] [address] Care Team Providers Care Technology Lab Teacher Name Role Phone Richard Upton MD Primary Care Provider [phone] Encounter Details Date Type Department Care Team (Late st Contact Info) Description 11/03/2023 Orders [address] [facility] Building [address], 5th [place] [address] Eleazar Prince MD [address] [place] [address] Social History Tobacco Use Types Packs/Day Years Used Date Smoking Tobacco: Former Cigarettes 0.5 20 2 001 - 2020 Smokeless Tobacco: Never Alcohol Use Standard Drinks/Week Comments Not Currently 0 (1 standard drink = 0.6 oz pur e alcohol) [facility] Utilities Answer Date Recorded In the past [...] EDT Office Visit [facility] Building Diabetes Clinic [address] [place] [address] Black And White Printer Operator: Prema Baumann, BALER [address] [place], [place] [phone] Scheduled Procedures Name Priority Associated Diagnoses Date/Ti me COLONOSCOPY SCREENING, LOW R ISK WITH POSSIBLE MODERATE SEDATION Healthcare maintenance documented as of this encounter Visit Diagnoses Not on filedocumented in this encounter Care Teams Technology Lab Teacher Relationship Specialty Start Date End Date Richard Upton MD [address] [place] [address] PCP - General Family Medicine 06/25/23 documented as of this encounter
== END 2024-06-15 18:10 | disposition home or self-care (01) ==
LOC: HO.MRI 18:09
PROVIDERS: PCP Family Medicine; Visit Provider Physician Assistant
DX: M51.16 Intervertebral disc disorders with radiculopathy, lumbar region (principal)
CPT/HCPCS: 72148

== ENCOUNTER → 2024-06-15 18:17 | Outpatient (BNV) | payer OTHER, SELFPAY | PROVIDERS: PCP Family Medicine; Visit Provider Radiology Diagnostic Radiology | DX: M51.26 Other intervertebral disc displacement, lumbar region (principal) | CPT/HCPCS: 72148 ==

== ENCOUNTER 2024-06-25 14:52 | Outpatient (AMB) | payer OTHER, SELFPAY ==
--- OUTSIDE RECORDS SUMMARY | 2024-06-25 15:00 | XMS_ITS | Encounter Summary ---
Author Organization [facility] Address [address] [place], [place] [phone] Care Team Providers Care Meter Mechanic Name Role Phone Richard Upton MD Primary Care Provider [phone] Encounter Details Date Type Department Care Team (Late st Contact Info) Description 07/24/2023 Orders Only [facility] Interventional Radiology [address] [place] [address] Jesse Goodmna MD [address] [place] [address] Social History Tobacco Use Types Packs/Day Years [...] Description 07/09/2024 8:30 AM EDT Office Visit [facility] Building Diabetes Clinic [address] [place] [address] Commercial Real Estate Lender: Prema Baumann, STEEL POURER HELPER [address] [place] [phone] Scheduled Procedures Name Priority Associated Diagnoses Date/Ti me COLONOSCOPY SCREENING, LOW R ISK WITH POSSIBLE MODERATE SEDATION Healthcare maintenance documented as of this encounter Visit Diagnoses Not on filedocumented in this encounter Care Teams Meter Mechanic Relationship Specialty Start Date End Date Richard Upton MD [address] [place] [address] PCP - General Family Medicine 06/25/23 documented as of this encounter
--- OUTSIDE RECORDS SUMMARY | 2024-06-25 15:00 | XMS_ITS | Clinical Summary ---
Author Organization [facility] Address [address] [place] [address] Care Team Providers Care Sales Attendant Name Role Phone Joni Null MD Primary Care Provider [phone] Allergies No known active allergies Social History [...] patient's age to complete this topic Insurance [facility] [place] [id number] BCBS FEE FOR SERVICE HMO Care Teams Sales Attendant Relationship Specialty Start Date End Date Joni Null MD [address] [place] [address] PCP - General Family Medicine 07/15/22
--- OUTSIDE RECORDS SUMMARY | 2024-06-25 15:00 | XMS_ITS | Encounter Summary ---
Author Organization [facility] Address [address] [place] [address] Care Team Providers Care Design Maker Name Role Phone Richard Upton MD Primary Care Provider [phone] Encounter Details Date Type Department Care Team (Late st Contact Info) Description 07/15/2023 myChart Message [facility] Financial Clearance Department [address] [place] [address] Mychart, Generic Provider [address] [place], [place] [phone] Medication Authorization Approval Social History Tobacco Use [...] Description 07/09/2024 8:30 AM EDT Office Visit [facility] Diabetes Clinic [address] [place] [address] Swimming Pool Plasterer Helper: Prema Baumann, VOLUNTEER COORDINATOR [address] [place] [phone] Scheduled Procedures Name Priority Associated Diagnoses Date/Ti me COLONOSCOPY SCREENING, LOW R ISK WITH POSSIBLE MODERATE SEDATION Healthcare maintenance documented as of this encounter Visit Diagnoses Not on filedocumented in this encounter Care Teams Design Maker Relationship Specialty Start Date End Date Richard Upton MD [address] [place] [address] PCP - General Family Medicine 06/25/23 documented as of this encounter
--- OUTSIDE RECORDS SUMMARY | 2024-06-25 15:01 | XMS_ITS | Encounter Summary ---
Author Organization [facility] Address [address] [place] [address] Care Team Providers Care Welder Apprentice Combination Name Role Phone Richard Upton MD Primary Care Provider [phone] Reason for Visit * Reason Onset Date Comments Don't Cancel Physical 12/04/2020 Encounter Details Date Type Department Care Team (Late st Contact Info) Description 12/04/2020 Telephone [facility] Central Scheduling Department [address] [place] [phone] Telephone Intake, Staff Don't Cancel Physical Social [...] this appt. Collin can be reached at [phone]. documented in this encounter Plan of Treatment Upcoming Encounters Date Type Department Care Team (Late st Contact Info) Description 07/09/2024 8:30 AM EDT Office Visit [facility] Diabetes Clinic [address] [place] [address] Cadd Manager: Prema Baumann, MANUFACTURING INDUSTRIAL ENGINEER [address] [place] [address] Scheduled Procedures Name Priority Associated Diagnoses Date/Ti me COLONOSCOPY SCREENING, LOW R ISK WITH POSSIBLE MODERATE SEDATION Healthcare maintenance documented as of this encounter Visit Diagnoses Not on filedocumented in this encounter Additional Health Concerns Infection Onset Date Last Indicated Resolved Time R/O C.diff 06/11/2023 06/11/2023 06/12/2023 9:09 AM EDT documented as of this encounter Care Teams Welder Apprentice Combination Relationship Specialty Start Date End Date Richard Upton MD [address] [place] [address] PCP - General Family Medicine 06/25/23 documented as of this encounter
--- OUTSIDE RECORDS SUMMARY | 2024-06-25 15:01 | XMS_ITS | Encounter Summary ---
Author Organization [facility] Address [address] [place] [address] Care Team Providers Care Artificial Inseminator Name Role Phone Richard Upton MD Primary Care Provider [phone] Encounter Details Date Type Department Care Team (Late st Contact Info) Description 11/03/2023 Orders Only [facility] Building [address], [address]th [place] [address] Eleazar Prince MD [address] [place] [phone] Social History Tobacco Use Types Packs/Day Years Used Date Smoking Tobacco: Former Cigarettes 0.5 20 2 001 - 2020 Smokeless Tobacco: Never Alcohol Use Standard Drinks/Week Comments Not Currently 0 (1 standard drink = 0.6 oz pur e alcohol) [facility] Utilities Answer Date Recorded In the past [...] Description 07/09/2024 8:30 AM EDT Office Visit [facility] Building Diabetes Clinic [address] [place] [address] Art Display Maker: Prema Baumann, OPTICS MANUFACTURING TECHNICIAN [address] [place], [place] [phone] Scheduled Procedures Name Priority Associated Diagnoses Date/Ti me COLONOSCOPY SCREENING, LOW R ISK WITH POSSIBLE MODERATE SEDATION Healthcare maintenance documented as of this encounter Visit Diagnoses Not on filedocumented in this encounter Care Teams Artificial Inseminator Relationship Specialty Start Date End Date Richard Upton MD [address] [place] [address] PCP - General Family Medicine 06/25/23 documented as of this encounter
--- OUTSIDE RECORDS SUMMARY | 2024-06-25 15:01 | XMS_ITS | Clinical Summary ---
Author Organization [facility] Address [address] [place] [address] Care Team Providers Care Air Box Tester Name Role Phone Richard Upton MD Primary Care Provider + [phone] Allergies Active Allergy Reactions Criticality Noted Date [...] well managed with infrequent use of dilaudid OPHTHALMIC PHOTOGRAPHER. With resuscitation he has reversed hemoconcentration, BUN [...] well managed with infrequent use of dilaudid OPHTHALMIC PHOTOGRAPHER. With resuscitation he has reversed hemoconcentration, BUN [...] well managed with infrequent use of dilaudid OPHTHALMIC PHOTOGRAPHER. With resuscitation he has reversed hemoconcentration, BUN [...] well managed with infrequent use of dilaudid OPHTHALMIC PHOTOGRAPHER. With resuscitation he has reversed hemoconcentration, BUN [...] well managed with infrequent use of dilaudid OPHTHALMIC PHOTOGRAPHER. With resuscitation he has reversed hemoconcentration, BUN [...] well managed with infrequent use of dilaudid OPHTHALMIC PHOTOGRAPHER. With resuscitation he has reversed hemoconcentration, BUN [...] Description 05/05/2024 9:00 AM EST Office Visit [facility] Primary Care [address] [place] [address] Richard Upton MD Healthcare maintenance (Primary Dx); Type 2 diabetes mellitus with hyperglycemia, with long-term current use of insulin; Dunn's neuroma of both feet; Necrotizing pancreatitis; Snoring 04/08/2024 myChart Message [facility] Diabetes Education [address] [place] [address] Mychart, Generic Provider [facility] 04/05/2024 8:30 AM EST Evaluation [facility] Diabetes Education [address] [place] [address] Seda Mcdaniel, SILVER, CDE Type 2 diabetes mellitus without complication, with long-term current use of insulin 04/05/2024 Refill [facility] [address] [place] [address] Diabetes Nurse: Prema Baumann, PETAL CUTTER Type 2 diabetes mellitus with hyperglycemia, with long-term current use of insulin (Primary Dx) from Last 3 Months Family History Medical History Relation Name Comments Diabetes Father Breast cancer Mother x2 Multiple sclerosis Mother Other Other Family history of Living Arrangements: Father: DM2 (dx 60s) Mother: Breast cancer x 2, MS, cervical cancer (lives in [place]) 1 Sister: in [place], [employer] No other [...] 07/09/2024 8:30 AM EDT Office Visit [facility] [address] [place] [address] Diabetes Nurse: Prema Baumann, PETAL CUTTER [address] [place] [address] Scheduled Procedures Name Priority Associated Diagnoses [...] of 2) 09/01/2023 COVID-19 Vaccine ( - 2023- season) 2023 08/22/2020, 07/28/2020 Alcohol/Substance Use Screening 03/10/2024 11/17/2023 [employer] Annual Screening 03/10/2024 Basic [...] history exists Procedures * Due to [place] state law, this organization might not be sharing [...] Health Maintenance Results * Due to [place] state law, this organization might not be sharing negative HIV tests. * (ABNORMAL) POCT Glycosylated Hemoglobin (HGB A1C), interfaced (03/08/2024 8:01 AM EST) Hemoglobin A1C, POCT 8.3(H) <=5.6 % 03/08/2024 8:10 AM EST [facility] Comment: A1C Recommendation for Non- Adults with Diabetes: <7.0% ADA 2011 Standards of Medical Care in Diabetes Blood 03/08/2024 8:01 AM EST 03/08/2024 8:10 AM EST us Prema Heller PETAL CUTTER LAB POCT ORDERABLES - DEVICE F inal Result [facility], POC [address] [place] [address], [place] * CT Abdomen Pelvis with Contrast [...] obtain the completed interpretation. ? Workstation ID: [id number] Up-to-date CT equipment and radiation dose reduction [...] changes in the spine. Resulting Agency Comment [id number] Procedure Note Lily Ibarra MD - 08/07/2023 [...] possible to obtain thecompleted interpretation. Workstation ID: [id number] Up-to-date CT equipment and radiation dose reduction techniques wereemployed. CTDIvol: 14.4 mGy. DLP: 721 mGy-cm. us Dm Cobos MD IMG CT PROCEDURES Final R esult * (ABNORMAL) Comprehensive Metabolic Panel (08/07/2023 6:28 PM EDT) NA 140 135 - 145 mmol/L 08/07/2023 7:12 PM T [facility] K 4.6 3.5 - 5.3 mmol/L 08/07/2023 7:12 PM [facility] Cl 106 97 - 110 mmol/L 08/07/2023 7:12 PM T [facility] CO2 29 24 - 32 mmol/L 08/07/2023 7:12 PM EDT [facility] Anion Gap 5 5 - 15 08/07/2023 7:12 PM [facility] Glucose 171(H) 70 - 99 mg/dL 08/07/2023 7:12 PM T [facility] Creatinine 0.79 0.60 - 1.30 mg/dL 08/07/2023 7:12 PM T [facility] Calcium 9.1 8.7 - 10.7 mg/dL 08/07/2023 7:12 PM [facility] Total Protein 6.9 6.0 - 8.0 g/dL 08/07/2023 7:12 PM [facility] Albumin 4.1 3.5 - 4.8 g/dL 08/07/2023 7:12 PM [facility] Bilirubin, Total 0.4 0.3 - 1.2 mg/dL 08/07/2023 7:12 PM EDT [facility] Alkaline Phosphatase 85 30 - 115 U/L 08/07/2023 7:12 PM EDT [facility] AST 14 10 - 40 U/L 08/07/2023 7:12 PM T [facility] ALT 13 10 - 40 U/L 08/07/2023 7:12 PM [facility] BUN 13 7 - 23 mg/dL 08/07/2023 7:12 PM EDT [facility] eGFR >90 >=60 mL/min/1. 73m2 08/07/2023 7:12 PM EDT [facility] Comment:The estimated glomer ular [...] 6:28 PM EDT 08/07/2023 6:33 PM EDT Dm Cobos MD LAB BLOOD ORDERABLES Valeria lockwood Result [facility] [address] [place] [address], * Microalbumin / creatinine, urine ratio (Lab Collect) (06/09/2021 9:09 AM EDT) Microalbumin, Urine 1.0 mg/dL 06/09/2021 1:27 PM EDT [facility] Creatinine, Urine 140 22 - 328 mg/dL 06/09/2021 1:27 PM EDT [facility] Microalb/Creat Ratio, Random Urine 7.1 <30.0 mcg/mgCr 06/09/2021 1:27 PM EDT [facility] Comment: Microalbumin Reference Range: Normal ? <30 mcg/mg Creatinine Microalbuminuria ? 30-300 mcg/mg Creatinine Clinical Albuminuria >300 mcg/mg Creatinine Reference: ADA Guideline. Diabetes Care. 2004;27 (suppl 1) Urine Urine specimen collection, clean catch / Unknown Non-Blood Collection / Unknown 06/09/2021 9:09 AM EDT 06/09/2021 9:09 AM EDT Jose Oseguera PETAL CUTTER LAB URINE ORDERABLES Final R esult [facility] [address] [place] [address], from Last 3 Months or Most Recently Relevant to Health Maintenance Insurance [facility] WORK[employer] COMPENSATION Advance Directives Documents on File Type Date Recorded Patient Product Lead Expl anation Health Care Proxy 05/25/2023 1:17 PM 05-24 Health Care Proxy 12/23/2008 12:00 AM * Full Code (Latest Code Status on File) Date Activated Date Inactivated Comments 05/24/2023 11:55 PM 06/18/2023 6:05 PM Healthcare Agents on File Name Relationship Healthcare Agent Relationshi p Communication Isadora Navneet Spouse Health Care Agent Care Teams Air Box Tester Relationship Specialty Start Date End Date Richard Upton MD [address] [facility] [place] [address] PCP - General Family Medicine 06/25/23
--- OUTSIDE RECORDS SUMMARY | 2024-06-25 15:01 | XMS_ITS | Encounter Summary ---
Author Organization [facility] Address [address] [place], [place] [id number] Care Team Providers Care Graphics Specialist Name Role Phone Richard Upton MD Primary Care Provider [phone] Encounter Details Date Type Department Care Team (Late st Contact Info) Description 06/19/2023 Orders Only [facility] Interventional Radiology [address] [place] [address] Alvaro Kumar MD [address] [place] [phone] Social History Tobacco Use Types Packs/Day Years [...] EDT Office Visit [facility] Building Diabetes [facility] [address] [place] [address] Process Control Board Operator: Prema Baumann, COMMUNITY HEALTH NURSE SUPERVISOR [address] [place] [address] Scheduled Procedures Name Priority Associated Diagnoses Date/Ti me COLONOSCOPY SCREENING, LOW R ISK WITH POSSIBLE MODERATE SEDATION Healthcare maintenance documented as of this encounter Visit Diagnoses Not on filedocumented in this encounter Care Teams Graphics Specialist Relationship Specialty Start Date End Date Richard Upton MD [address] [place] [address] PCP - General Family Medicine 06/25/23 documented as of this encounter
--- OUTSIDE RECORDS SUMMARY | 2024-06-25 15:01 | XMS_ITS | Data Portability ---
Author Organization [facility] Address [address] [place] [address] Care Team Providers Care Bridge Leverman Name Role Phone JONI NULL Referring Provider [...] mg/gram (0.5 %) eye ointment 2018 019 [email or web address] Not available 9 16:14:53 Patient TargetsNo targets recorded. Patient InstructionsNo instructions recorded. Reason for Referral None Reported. Procedures Surgical History Date Name Laterality Status Provider Name and Address Organization Details Recorded Time 9 Fluorescein eye exam completed KEAGAN Dyer [facility] 06/07/2018 16:12:53 Imaging Results None recorded. Procedure [...] [degF] 120 mm[Hg] 80 mm[Hg] Denise Ho [facility] 9 10:28:02 Social History None recorded. Functional Status None recorded. Mental Status None recorded. Family History Nothing Reported. Medical History No medical history recorded. Past Encounters Encounter ID Performer Location Encounter Start Date Encounter Closed Date Diagnosis/Indication Diagnosis SNOMED-CT Code Diagnosis ICD10 Code Diagnosis Note [id number] Madisyn Diaz MD [facility] [address] [place] [address] 06/07/2018 09:58:18 06/07/2018 10:51:49 Foreign body in eye [id number] T15.90XA 42/M with R-side FB sensation after [...] Guarantor Name 06/07/2018 1 [place] [id number] Collin Toth [id number] Collin Toth Notes Date Note Type [...] no swelling, no fever Madisyn Diaz MD [address] [place] [address], [id number], [facility] 06/07/2018 18:47:52
--- OUTSIDE RECORDS SUMMARY | 2024-06-25 15:01 | XMS_ITS | Encounter Summary ---
Author Organization [facility] Address [address] [place], [place] [address] Care Team Providers Care Headmaster/Mistress Name Role Phone Richard Upton MD Primary Care Provider [phone] Encounter Details Date Type Department Care Team (Late st Contact Info) Description 06/23/2023 Orders Only [facility] Interventional Radiology [address] [place] [address] Oswaldo Gonzalez MD [address] [place] [address] Social History Tobacco Use Types Packs/Day Years [...] Description 07/09/2024 8:30 AM EDT Office Visit [facility] ACC Building Diabetes [facility] [address] [place] [address] Sausage Cutter: Prema Baumann, NOVELTY TWISTER TENDER [address] [place] [address] Scheduled Procedures Name Priority Associated Diagnoses Date/Ti me COLONOSCOPY SCREENING, LOW R ISK WITH POSSIBLE MODERATE SEDATION Healthcare maintenance documented as of this encounter Visit Diagnoses Not on filedocumented in this encounter Care Teams Headmaster/Mistress Relationship Specialty Start Date End Date Richard Upton MD [address] [place] [address] PCP - General Family Medicine 06/25/23 documented as of this encounter
--- OUTSIDE RECORDS SUMMARY | 2024-06-25 15:01 | XMS_ITS | Referral Summary ---
Author Organization [facility] Address [address] [place] [address] Care Team Providers Care Credit Clerk Name Role Phone Richard Upton MD Primary Care Provider Encounters Date Type Department Care Team Description 05/05/2024 9:00 AM EST Office Visit [facility] Primary Care [address] [place] [address] Richard Upton MD Healthcare maintenance (Primary Dx); Type 2 diabetes mellitus with hyperglycemia, with long-term current use of insulin; Dunn's neuroma of both feet; Necrotizing pancreatitis; Snoring 04/08/2024 myChart Message [facility] Diabetes Education [address] [place] [address] Mychart, Generic Provider [facility] 04/05/2024 Refill [facility] [address] [place] [address] Automotive Service Advisor: Prema Baumann, VISUALIZER Type 2 diabetes mellitus with hyperglycemia, with long-term current use of insulin (Primary Dx) 04/05/2024 8:30 AM EST Evaluation [facility] [address] [place] [address] Seda Mcdaniel, SILVER, CDE Type 2 diabetes mellitus without complication, with long-term current use of insulin from Last 3 Months Allergies Active [...] checks 200 each 06/18/2023 3:38 PM EDT 4 Active blood-glucose [...] Active Problems Problem Noted Date Diagnosed Date Shaun's neuroma of both feet 05/05/2024 Assessment & [...] well managed with infrequent use of dilaudid BRIDGE MANAGER. With resuscitation he has reversed hemoconcentration, [...] well managed with infrequent use of dilaudid BRIDGE MANAGER. With resuscitation he has reversed hemoconcentration, [...] well managed with infrequent use of dilaudid BRIDGE MANAGER. With resuscitation he has reversed hemoconcentration, [...] well managed with infrequent use of dilaudid BRIDGE MANAGER. With resuscitation he has reversed hemoconcentration, [...] well managed with infrequent use of dilaudid BRIDGE MANAGER. With resuscitation he has reversed hemoconcentration, [...] well managed with infrequent use of dilaudid BRIDGE MANAGER. With resuscitation he has reversed hemoconcentration, [...] 0.6 oz pur e alcohol) [facility] Utilities Answer Date Recorded In the past 12 months has e electric, gas, oil, or water [employer] threatened to shut off services in your [...] Description 07/09/2024 8:30 AM EDT Office Visit [facility] [address] [place] [address] Automotive Service Advisor: Prema Baumann, VISUALIZER [address] [place] [address] Scheduled Procedures Name Priority Associated Diagnoses Date/Ti me COLONOSCOPY SCREENING, LOW R ISK WITH POSSIBLE MODERATE SEDATION Healthcare maintenance Procedures * Due to [place] state law, this organization might not be [...] to Health Maintenance Results * Due to [place] state law, this organization might not be sharing negative HIV tests. * (ABNORMAL) POCT Glycosylated Hemoglobin (HGB A1C), interfaced (03/08/2024 8:01 AM EST) Hemoglobin A1C, POCT 8.3(H) <=5.6 % 03/08/2024 8:10 AM EST [facility] Comment: A1C Recommendation for Non- Adults with Diabetes: <7.0% ADA 2011 Standards of Medical Care in Diabetes Blood 03/08/2024 8:01 AM EST 03/08/2024 8:10 AM EST us Prema Heller VISUALIZER LAB POCT ORDERABLES - DEVICE F inal Result [facility], P[facility] [address] [place] [address], [place] * CT Abdomen Pelvis with Contrast [...] obtain the completed interpretation. ? Workstation ID: [id number] Up-to-date CT equipment and radiation dose reduction [...] changes in the spine. Resulting Agency Comment [id number] Procedure Note Lily Ibarra MD - 08/07/2023 [...] possible to obtain thecompleted interpretation. Workstation ID: [id number] Up-to-date CT equipment and radiation dose reduction techniques wereemployed. CTDIvol: 14.4 mGy. DLP: 721 mGy-cm. us Dm Cobos MD IMG CT PROCEDURES Final R esult * (ABNORMAL) Comprehensive Metabolic Panel (08/07/2023 6:28 PM EDT) NA 140 135 - 145 mmol/L 08/07/2023 7:12 PM T [facility] K 4.6 3.5 - 5.3 mmol/L 08/07/2023 7:12 PM [facility] Cl 106 97 - 110 mmol/L 08/07/2023 7:12 PM T [facility] CO2 29 24 - 32 mmol/L 08/07/2023 7:12 PM EDT [facility] Anion Gap 5 5 - 15 08/07/2023 7:12 PM [facility] Glucose 171(H) 70 - 99 mg/dL 08/07/2023 7:12 PM T [facility] Creatinine 0.79 0.60 - 1.30 mg/dL 08/07/2023 7:12 PM T [facility] Calcium 9.1 8.7 - 10.7 mg/dL 08/07/2023 7:12 PM [facility] Total Protein 6.9 6.0 - 8.0 g/dL 08/07/2023 7:12 PM [facility] Albumin 4.1 3.5 - 4.8 g/dL 08/07/2023 7:12 PM [facility] Bilirubin, Total 0.4 0.3 - 1.2 mg/dL 08/07/2023 7:12 PM EDT [facility] Alkaline Phosphatase 85 30 - 115 U/L 08/07/2023 7:12 PM EDT [facility] AST 14 10 - 40 U/L 08/07/2023 7:12 PM T [facility] ALT 13 10 - 40 U/L 08/07/2023 7:12 PM [facility] BUN 13 7 - 23 mg/dL 08/07/2023 7:12 PM EDT [facility] eGFR >90 >=60 mL/min/1. 73m2 08/07/2023 7:12 PM EDT [facility] Comment:The estimated glomer [...] MD LAB BLOOD ORDERABLES Valeria lockwood Result [facility] [address] [place] [address], * Microalbumin / creatinine, urine ratio (Lab Collect) (06/09/2021 9:09 AM EDT) Microalbumin, Urine 1.0 mg/dL 06/09/2021 1:27 PM EDT [facility] Creatinine, Urine 140 22 - 328 mg/dL 06/09/2021 1:27 PM EDT [facility] Microalb/Creat Ratio, Random Urine 7.1 <30.0 mcg/mgCr 06/09/2021 1:27 PM EDT [facility] Comment: Microalbumin Reference Range: Normal ? <30 mcg/mg Creatinine Microalbuminuria ? 30-300 mcg/mg Creatinine Clinical Albuminuria >300 mcg/mg Creatinine Reference: ADA Guideline. Diabetes Care. 2004;27 (suppl 1) Urine Urine specimen collection, clean catch / Unknown Non-Blood Collection / Unknown 06/09/2021 9:09 AM EDT 06/09/2021 9:09 AM EDT Jose Oseguera VISUALIZER LAB URINE ORDERABLES Final R esult [facility] [address] [place] [address], from Last 3 Months or Most Recently Relevant to Health Maintenance Insurance [facility] WORKERS COMPENSATION Advance Directives Documents on File Type Date Recorded Patient Sign Board Erector Expl anation Health Care Proxy 05/25/2023 1:17 PM 05-24 Health Care Proxy 12/23/2008 12:00 AM * Full Code (Latest Code Status on File) Date Activated Date Inactivated Comments 05/24/2023 11:55 PM 06/18/2023 6:05 PM Healthcare Agents on File Name Relationship Healthcare Agent Relationshi p Communication Isadora Navneet Spouse Health Care Agent Care Teams Credit Clerk Relationship Specialty Start Date End Date Richard Upton MD [address] [facility] [place] [address] PCP - General Family Medicine 06/25/23
--- NOTE | 2024-06-25 16:15 | A.SPINEOV_ITS ---
Intake Visit Reasons: F/u EMG and MRI Intake Note: Mr. Toth is here today to F/u on the results to his EMG and MRI. Psychological Assistant Required: No Allergies oxycodone [From Percocet] Adverse Reaction (Intermediate, Verified 04/09/24 09:06) Nausea and Vomiting Assessment & Plan Assessment & Plan (1) Back pain: Code(s): M54.9 - Dorsalgia, unspecified Category: Medical Plan Mr Toth is back to see me today in follow-up. Dr. Grace and I reviewed his imaging of the lumbar spine done at [place], and the previously seen herniated disc fragment from the MRI at [place] in 2022 at L5-S1 is gone. The patient still continues to complain of a chronic back pain going into his hips with standing and walking. He is having a hard time at his job. His EMG did not show lumbar radiculopathy but rather diabetic polyneuropathy. His cervical MRI did not show any evidence of spinal cord compression to explain the numbness in his hands. Since the main symptom here is the chronic back pain and the herniated disc is gone, Dr. Grace is thinking that this new recent MRI is demonstrating to us that his chronic back pain is a degenerative disc issue and not 1 of an acute herniated disc. Therefore the recommendation to treat this would be fusion instead of microdiskectomy. However, the patient has not been through thorough conservative treatment, so we have given him a referral to PT and he is going to undergo 6-8 weeks and we can re-evaluate. If at that time he is still continuing to have the pain, we will consider lumbar surgery. We do not think there is a role for injections because of his diabetes which has been temper mental to say the least. His A1c is recently got under fairly good control near 7 so we do not want to cause any major fluctuations in his blood sugars. Total amount of time spent in this visit was 20 minutes in discussion of symptoms, lumbar imaging results and subsequent plan of care Willy Grace MD,PhD [facility] Orders: Orders PT Evaluation and Treatment Today M54.9 - Dorsalgia, unspecified Coding Level of Care Code Est Pt Level 3 (35429) Diagnoses Back pain M54.9
== END 2024-06-25 16:45 | disposition home or self-care (01) ==
LOC: HO.HNS 14:52
PROVIDERS: PCP Family Medicine; Visit Provider Physician Assistant
DX: M54.9 Dorsalgia, unspecified (principal)
CPT/HCPCS: 99213